=== PATIENT | male | born 1930 | race Caucasian/White ===

== ENCOUNTER 2016-09-21 02:20 | Inpatient (IN) | payer MEDICARE, BC ==
[~2016-09-21] VITALS: Ht 182.9 cm; Wt 106.5 kg
[2016-09-21] VITALS (12 sets, daily range): BP systolic 113–144; BP diastolic 74–84; PULSE 72–102; RESP 16–24; TEMP 97.5–98.5; O2SAT 91–97
[~2016-09-21 02:20] MED LIST: ARIC10TA PO; ASPI81CH3 PO; ATOR20TA PO; CITA20 PO; CLON.2 PO; CYCL-36 PO; FURO20 PO; GLUCTAB PO; LISI-587 PO; MOME17I; NAME10TA PO; NIFE30TA2 PO; POTA1080 PO; PROT40TA PO; [UNRECOGNIZED DRUG - CODE] PO
[2016-09-21] MEDS ORDERED: ARIC10TA PO (02:41)
[2016-09-21] MEDS ORDERED: [UNRECOGNIZED DRUG - CODE] (02:41)
[2016-09-21] MEDS ORDERED: METF500T4 PO (02:41)
[2016-09-21] MEDS ORDERED: FURO1TAB62 PO (02:41)
[2016-09-21] MEDS ORDERED: CYCL1TAB29 PO (02:41)
[2016-09-21] MEDS ORDERED: PROT40TA PO (02:41)
[2016-09-21] MEDS ORDERED: MOME17I EACH NARE (02:41)
[2016-09-21] MEDS ORDERED: LISI20TA3 PO (02:41)
[2016-09-21] MEDS ORDERED: ASPI1TAB69 PO (02:41)
[2016-09-21] MEDS ORDERED: CLON0.2T PO (02:41)
[2016-09-21] MEDS ORDERED: NAME10TA PO (02:41)
[2016-09-21] MEDS ORDERED: CITA20TA4 PO (02:41)
[2016-09-21] MEDS ORDERED: NIFE10 PO (02:41)
[2016-09-21] MEDS ORDERED: ATOR20TA15 PO (02:41)
[2016-09-21] MEDS ORDERED: POTA1080 PO (02:41)
--- NOTE | 2016-09-21 02:43 | PD ---
HPI Chief Complaint: Abnormal Results Time Seen by Provider: 02:33 Travel History International Travel<30 days: No Contact w/Intl Traveler<30days: No Traveled to known affect area: No History of Present Illness HPI 86-year-old male with history of hypertension, A. fib, CVA, dementia, diabetes, sent in from intermediate for evaluation of fever, nausea and vomiting, abnormal hemoglobin. Upon arrival to the emergency department the patient is awake and alert. He is not exactly sure why he is in the emergency department. He is complaining of some back pain. He denies chest pain or dyspnea. He is also having some abdominal discomfort which he is unable to characterize. PFSH Past Medical History Cerebrovascular Accident: Yes Dementia: Yes Diabetes: Yes Patient Takes Glucophage: No Psychiatric: Yes (Major depressive disorder) Past Surgical History Surgical History: Unable to Obtain Social History Alcohol Use: No Tobacco Use: No (quit 1969) Substance Use: No Allergies-Medications (Allergen,Severity, Reaction): Coded Allergies: Cephalexin (Verified Allergy, Unknown, 09/21/16) Plavix (Verified Allergy, Unknown, 09/21/16) Reported Meds & Prescriptions Reported Meds & Active Scripts Active Reported Coreg (Carvedilol) 6.25 Mg Tab 6.25 Mg PO BID Eliquis (Apixaban) 2.5 Mg Tab 2.5 Mg PO DAILY Potassium Citrate ER 1,080 Mg Tab 1,080 PO BID Protonix (Pantoprazole Sodium) 40 Mg Tab 40 Mg PO DAILY Procardia (Nifedipine) 10 Mg Cap 30 Mg PO BID Nasonex Nasal [place] (Mometasone Furoate) 50 Mcg/Act Naspr 2 [place] EACH NARE DAILY Metformin ER (Metformin HCl) 500 Mg [place] 500 Mg PO BIDPC With evening meal Namenda (Memantine) 10 Mg Tab 10 Mg PO BID Lisinopril-Hctz 20-25 Mg Tab 1 Tab PO DAILY Aricept (Donepezil) 10 Mg Tab 10 Mg PO HS Lasix (Furosemide) 20 Mg Tab 20 Mg PO DAILY Flexeril (Cyclobenzaprine HCl) 10 Mg Tab 10 Mg PO QHS Clonidine (Clonidine HCl) 0.2 Mg Tab 0.2 Mg PO DAILY Axona (Dietary Management Product) 1 Pow Pow 1 Citalopram (Citalopram Hydrobromide) 20 Mg Tab 20 Mg PO DAILY Atorvastatin (Atorvastatin Calcium) 20 Mg Tab 20 Mg PO HS Aspirin 81 Mg Tabdr 81 Mg PO DAILY Review of Systems Except as stated in HPI: all other systems reviewed are Neg Physical Exam Narrative GENERAL: Well-developed, well-nourished, awake, alert, elderly-appearing male, no acute distress. SKIN: Warm and dry. HEAD: Atraumatic. Normocephalic. EYES: Pupils equal and round. No scleral icterus. No injection or drainage. ENT: Mucous membranes pink and moist. NECK: Trachea midline. No JVD. No nuchal rigidity. CARDIOVASCULAR: Irregularly irregular. RESPIRATORY: No accessory muscle use. Clear to auscultation. Breath sounds equal bilaterally. GASTROINTESTINAL: Abdomen soft, nondistended. Mild diffuse tenderness without peritoneal signs. MUSCULOSKELETAL: No obvious deformities. No clubbing. No cyanosis. Moderate bilateral pedal edema. NEUROLOGICAL: Awake and alert. No obvious cranial nerve deficits. Motor grossly within normal limits. Normal speech. PSYCHIATRIC: Appropriate mood and affect; insight and judgment normal. Data Data Last Documented VS Vital Signs Date Time Temp Pulse Resp B/P Pulse Ox O2 Delivery O2 Flow Rate FiO2 09/21/16 03:09 91 Room Air 09/21/16 03:09 2 09/21/16 02:24 98.2 98 18 138/84 Orders Complete Blood Count With Diff (09/21/16 02:33) Comprehensive Metabolic Panel (09/21/16 02:33) Prothrombin Time / Inr (Pt) (09/21/16 02:33) Act Partial Throm Time (Ptt) (09/21/16 02:33) Lactic Acid Sepsis Protocol (09/21/16 02:33) Lipase (09/21/16 02:33) Ckmb (Isoenzyme) Profile (09/21/16 02:33) Troponin I (09/21/16 02:33) Urinalysis - C+S If Indicated (09/21/16 02:33) Influenzae A/B Antigen (09/21/16 02:33) Blood Culture (09/21/16 02:33) Chest, Single Ap (09/21/16 02:33) Blood Glucose (09/21/16 02:33) Ecg Monitoring (09/21/16 02:33) Iv Access Insert/Monitor (09/21/16 02:33) Oximetry (09/21/16 02:33) Oxygen Administration (09/21/16 02:33) Acetaminophen (Tylenol) (09/21/16 02:45) B-Type Natriuretic Peptide (09/21/16 02:37) Cath For Specimen (09/21/16 02:37) Ct Abd/Pel W Iv Contrast(Rout) (09/21/16 02:40) Levofloxacin 750 Mg Premix Inj (Levaquin (09/21/16 03:15) Aztreonam Inj (Azactam Inj) (09/21/16 03:15) Sodium Chlor 0.9% 1000 Ml Inj (Ns 1000 M (09/21/16 03:30) Iohexol 350 Inj (Omnipaque 350 Inj) (09/21/16 03:29) Urine Culture (09/21/16 02:55) Aspirin Chew (Aspirin Chew) (09/21/16 04:00) Furosemide Inj (Lasix Inj) (09/21/16 04:15) Labs Laboratory Tests Test 09/21/16 09/21/16 02:40 02:55 White Blood Count 16.4 TH/MM3 Red Blood Count 3.87 MIL/MM3 Hemoglobin 11.2 GM/DL Hematocrit 34.5 % Mean Corpuscular Volume 89.1 FL Mean Corpuscular Hemoglobin 28.9 PG Mean Corpuscular Hemoglobin 32.4 % Concent Red Cell Distribution Width 14.0 % Platelet Count 196 TH/MM3 Mean Platelet Volume 7.4 FL Neutrophils (%) (Auto) 92.0 % Lymphocytes (%) (Auto) 3.0 % Monocytes (%) (Auto) 4.9 % Eosinophils (%) (Auto) 0.0 % Basophils (%) (Auto) 0.1 % Neutrophils # (Auto) 15.1 TH/MM3 Lymphocytes # (Auto) 0.5 TH/MM3 Monocytes # (Auto) 0.8 TH/MM3 Eosinophils # (Auto) 0.0 TH/MM3 Basophils # (Auto) 0.0 TH/MM3 CBC Comment AUTO DIFF Differential Total Cells 100 Counted Neutrophils % (Manual) 81 % Band Neutrophils % 11 % Lymphocytes % 2 % Monocytes % 6 % Neutrophils # (Manual) 15.1 TH/MM3 Differential Comment FINAL DIFF MANUAL Platelet Estimate NORMAL Platelet Morphology Comment NORMAL Ovalocytes 1+ Acanthocytes OCC Keratocytes OCC Prothrombin Time 12.0 SEC Prothromb Time International 1.1 RATIO Ratio Activated Partial 31.5 SEC Thromboplast Time Sodium Level 139 MEQ/L Potassium Level 4.2 MEQ/L Chloride Level 103 MEQ/L Carbon Dioxide Level 24.6 MEQ/L Anion Gap 11 MEQ/L Blood Urea Nitrogen 23 MG/DL Creatinine 1.30 MG/DL Estimat Glomerular Filtration 52 ML/MIN Rate Random Glucose 283 MG/DL Lactic Acid Level 1.3 mmol/L Calcium Level 8.5 MG/DL Total Bilirubin 0.8 MG/DL Aspartate Amino Transf 27 U/L (AST/SGOT) Alanine Aminotransferase 14 U/L (ALT/SGPT) Alkaline Phosphatase 70 U/L Total Creatine Kinase 95 U/L Troponin I 2.36 NG/ML B-Type Natriuretic Peptide 1091 PG/ML Total Protein 6.5 GM/DL Albumin 2.9 GM/DL Lipase 85 U/L Urine Color YELLOW Urine Turbidity HAZY Urine pH 5.5 Urine Specific [place] 1.020 Urine Protein 30 mg/dL Urine Glucose (UA) 150 mg/dL Urine Ketones 40 mg/dL Urine Occult Blood MOD Urine Nitrite POS Urine Bilirubin NEG Urine Urobilinogen LESS THAN 2.0 MG/DL Urine Leukocyte Esterase LARGE Urine RBC 6 /hpf Urine WBC 88 /hpf Urine WBC Clumps MANY Urine Amorphous Sediment RARE Urine Bacteria MANY /hpf Urine Hyaline Casts 3 /lpf Urine Mucus FEW /lpf Microscopic Urinalysis Comment CATH-CULTURE IND MDM Medical Decision Making Medical Screen Exam Complete: Yes Emergency Medical Condition: Yes Medical Record Reviewed: Yes Interpretation(s) EKG: A. fib, rate 93, axis, PVCs, normal intervals, no acute ischemic abnormality. Differential Diagnosis Sepsis, pneumonia, intra-abdominal infection, UTI Narrative Course Initial vital signs show heart rate 98, blood pressure 134/84, pulse ox 92% on room air, oral temp of 98.2F. CBC shows WBC 16.4, hemoglobin 11.2, hematocrit 34.5, platelets 196, neutrophils 92%. 11% band neutrophils CMP is markable for BUN 23, creatinine 1.2, GFR 52, random glucose 283 Lactic acid is 1.3. BNP Troponin is 2.36. UA is suggestive of UTI. Chest x-ray: Left lower lobe consolidation and patchy infiltrates in the right mid and lower lung. CT abdomen pelvis: CONCLUSION: 1. Abnormal appearance to the gallbladder with multiple small calcified stones, marked distention of the gallbladder, and induration of the fat about the gallbladder tracking along the mesentery in the right upper quadrant. Recommend correlation with clinical exam for possible acute cholecystitis.. 2. Large bilateral pleural effusions, right greater than left. The patient was given Levaquin and Azactam for his chest x-ray findings of bilateral infiltrates. Elevated troponin is likely secondary to CHF as well as sepsis. The patient is denying chest pain. Case discussed with tower observer Dr. Briones who will admit the patient to his service. Critical Care Narrative Aggregate critical care time was 35 minutes. Time to perform other separately billable procedures was not included in the critical care time. My time did not include minutes spent treating any other patients simultaneously or on activities that did not directly contribute to the patient's treatment. The services I provided to this patient were to treat and/or prevent clinically significant deterioration that could result in: , permanent disability, septic shock I provided critical care services requiring my management, as noted below: Chart data review, documentation time, medication orders and management, vital sign assessments/reviewing monitor data, ordering and reviewing lab tests, ordering and interpreting/reviewing x-rays and diagnostic studies, care of the patient and discussion of the patient with the admitting physicians. Diagnosis Primary Impression: Sepsis Qualified Code: A41.9 - Sepsis, due to unspecified organism Additional Impressions: Pneumonia Qualified Code: J18.9 - Pneumonia of both lungs due to infectious organism, unspecified part of lung UTI (urinary tract infection) Qualified Code: N39.0 - Urinary tract infection with hematuria, site unspecified Cholecystitis Elevated troponin Bilateral pleural effusion Yordan Villanueva MD Sep 21, 2016 02:43
[2016-09-21] MEDS ORDERED: ACETAMINOPHEN 325 MG TAB PO ONE (02:45)
[2016-09-21 02:53] LABS: AUTOMATED NEUTROPHIL # 15.1 TH/MM3 (1.8-7.7); BASOPHIL % 0.1 % (0.0-2.0); HEMATOCRIT 34.5 % (39.0-51.0); LYMPHOCYTE # 0.5 TH/MM3 (1.0-4.8); MEAN CELL VOLUME 89.1 FL (80.0-100.0); MEAN CORPUSCULAR HEMOGLOBIN 28.9 PG (27.0-34.0); MEAN CORPUSCULAR HGB CONC 32.4 % (32.0-36.0); MONO % 4.9 % (0.0-8.0); PLATELET COUNT 196 TH/MM3 (150-450); RED BLOOD COUNT 3.87 MIL/MM3 (4.50-5.90); WHITE BLOOD COUNT 16.4 TH/MM3 (4.0-11.0)
[2016-09-21 02:54] LABS: HEMO FLAGS AUTO DIFF
[2016-09-21 03:04] LABS: APTT (PATIENT) 31.5 SEC (24.3-30.1); INTERNATIONAL NORMALIZED RATIO 1.1 RATIO
--- NOTE | 2016-09-21 03:10 | RADRPT ---
EXAM DATE/TIME: 09/21/2016 02:43 [facility] COMPARISON: No previous studies available for comparison. INDICATIONS : Fever and generalized weakness. MEDICAL HISTORY : None. SURGICAL HISTORY : None. ENCOUNTER: Initial ACUITY: 3 days PAIN SCORE: 0/10 LOCATION: chest FINDINGS: The heart is enlarged. There is consolidative infiltrate in the left lower lung causing loss of deli neation of the medial one half left hemidiaphragm. Patchy infiltrates in the right mid and lower dayana g are also present. The right hemidiaphragm remains well delineated. CONCLUSION: Left lower lobe consolidation and patchy infiltrates in the right mid and lower lung. Cardiomegaly. Morgan Venegas MD on September 21, 2016 at 3:08 Board Certified Radiologist. This report was verified electronically.
[2016-09-21] MEDS ORDERED: LEVOFLOXACIN 750 MG PREMIX INJ 150 ML IV ONE (03:15)
[2016-09-21] MEDS ORDERED: AZTREONAM INJ 2,000 MG in SODIUM CHLORIDE 0.9% INJ 100 ML IV ONE (03:15)
[2016-09-21 03:16] LABS: ALT (GPT) 14 U/L (12-78); ANION GAP 11 MEQ/L (5-15); AST (GOT) 27 U/L (15-37); BICARBONATE 24.6 MEQ/L (21.0-32.0); BLOOD UREA NITROGEN 23 MG/DL (7-18); CHLORIDE 103 MEQ/L (98-107); GLOMERULAR FILTRATION RATE 52 ML/MIN (>89); POTASSIUM 4.2 MEQ/L (3.5-5.1); SODIUM (NA) 139 MEQ/L (136-145)
[2016-09-21] MEDS ORDERED: CARV6.25 PO (03:16)
[2016-09-21] MEDS ORDERED: APIX2.5T PO (03:16)
[2016-09-21 03:20] LABS: ALKALINE PHOSPHATASE 70 U/L (45-117); TOTAL BILIRUBIN ADULT 0.8 MG/DL (0.2-1.0)
[2016-09-21] MEDS ORDERED: IOHEXOL 350 MG/ML 10 ML VIAL (for RAD DIAG) IV ONE (03:29)
[2016-09-21] MEDS ORDERED: SODIUM CHLOR 0.9% 1000 ML INJ 1,000 ML IV ONE (03:30)
[2016-09-21 03:32] LABS: BACTERIA, URINE MANY /hpf; BLOOD, URINE MOD (NEG); COMMENT (UR) CATH-CULTURE IND; CULTURE IF INDICATED CATH CULTURE IND; GLUCOSE,URINE 150 mg/dL (NEG); HYALINE CAST, URINE 3 /lpf (RARE); KETONE, URINE 40 mg/dL (NEG); MUCUS URINE FEW /lpf (OCC); NITRITE,URINE POS (NEG); PH, URINE 5.5 (5.0-8.5); URINE COLOR YELLOW (YELLW/STRAW)
[2016-09-21 03:42] LABS: CREATINE KINASE 95 U/L (39-308)
[2016-09-21 03:53] LABS: BANDS 11 % (0-6); NEUTROPHIL # MANUAL DIFF 15.1 TH/MM3 (1.8-7.7); POLYS (SEG NEUTROPHILS) 81 % (16-70); SCAN/DIFF FINAL DIFF MANUAL; WBC DIFF SAMPLE 100
[2016-09-21 03:54] LABS: ACANTHOCYTES OCC (NORMAL); KERATOCYTES OCC (NORMAL); OVALOCYTES 1+ (NORMAL)
--- NOTE | 2016-09-21 03:54 | RADRPT ---
EXAM DATE/TIME: 09/21/2016 03:27 [facility] COMPARISON: CHEST SINGLE AP, September 21, 2016, 2:43. INDICATIONS : Weakness and abdominal pain. Nausea and vomiting. IV CONTRAST: 85 cc Omnipaque 350 (iohexol) IV ORAL CONTRAST: No oral contrast ingested. RADIATION DOSE: 16.94 CTDIvol (mGy) MEDICAL HISTORY : Hypertension. Carcinoma, prostate. Diabetes mellitus type 2. SURGICAL HISTORY : Prostatectomy. ENCOUNTER: Initial ACUITY: 1 day PAIN SCALE: 5/10 LOCATION: abdomen TECHNIQUE: Volumetric scanning of the abdomen and pelvis was performed. Using automated exposure control and ad justment of the mA and/or kV according to patient size, radiation dose was kept as low as reasonably achievable to obtain optimal diagnostic quality images. FINDINGS: LOWER LUNGS: Bilateral pleural effusions, measuring 6.2 cm on the right and 3.8 cm on the left in AP dimension. T here is associated compressive atelectasis in adjacent lower lungs.. LIVER: There is a smooth margined cyst in the dome of the liver measuring 2.5 cm. The central biliary ducts are slightly prominent, but no ductal dilatation in the periphery of the liver. The gallbladder is distended and there are multiple small calcified gallstones layering in the dependent portion near th e neck. There is some induration of the fat about the gallbladder, and the induration does extend al laurie the fascia of the right anterior pararenal space.SPLEEN: Normal size without lesion. PANCREAS: Within normal limits. KIDNEYS: Normal in size and shape. There is no mass, stone or hydronephrosis. ADRENAL GLANDS: Within normal limits. VASCULAR: Diffuse prominent vascular calcification in the abdominal arteries. The abdominal aorta is normal in dimension. BOWEL/MESENTERY: No dilated loops of small bowel. Moderate amount of stool seen in the right colon and in the rectum. ABDOMINAL WALL: Within normal limits. RETROPERITONEUM: There is no lymphadenopathy. BLADDER: No wall thickening or mass. REPRODUCTIVE: Hemoclips in the pelvis from presumed prostatectomy. INGUINAL: There is no lymphadenopathy or hernia. MUSCULOSKELETAL: Within normal limits for patient age. CONCLUSION: 1. Abnormal appearance to the gallbladder with multiple small calcified stones, marked distention of the gallbladder, and induration of the fat about the gallbladder tracking along the mesentery in the right upper quadrant. Recommend correlation with clinical exam for possible acute cholecystitis.. 2. Large bilateral pleural effusions, right greater than left. Morgan Venegas MD on September 21, 2016 at 3:44 Board Certified Radiologist. This report was verified electronically.
[2016-09-21 03:55] LABS: PLATELET ESTIMATE SMEAR NORMAL (NORMAL); PLATELET MORPHOLOGY NORMAL (NORMAL)
[2016-09-21] MEDS ORDERED: ASPIRIN 81 MG CHEW TAB CHEW ONE (04:00)
[2016-09-21] MEDS ORDERED: FUROSEMIDE 40 MG/4 ML VIAL IV PUSH ONE ×2 (04:15→06:00)
[2016-09-21] MEDS ORDERED: metroNIDAZOLE 500 MG INJ 100 ML IV ONE (04:30)
[2016-09-21] MEDS ORDERED: CIPROFLOXACIN 400 MG PREMIX 200 ML IV ONE (05:00)
--- NOTE | 2016-09-21 05:42 | HHI.HP ---
[facility] Service Critical Care Medicine Primary Care Physician Non-Staff Admission Diagnosis sepsis, pneumonia, UTI, cholecystitis, elevated troponin Diagnosis: Chief Complaint: 86 y/o alf resident presents with leukocytosis, right upper quadrant tenderness, CT finding consistent with cholecyctitis. Clearly chronic heart failure with large bilateral pleural effusions and BNP > 1000. Troponin levated at 2.96. Travel History International Travel<30 Days: No Contact w/Intl Traveler <30 Da: No Traveled to Known Affected Are: No History of Present Illness 86 y/o alf resident presents with leukocytosis, right upper quadrant tenderness, CT finding consistent with cholecystitis. Clearly chronic heart failure with large bilateral pleural effusions and BNP > 1000. Troponin elevated at 2.96. Review of Systems ROS Abdominal pain. Confused. No family. Past Family Social History Allergies: Coded Allergies: Cephalexin (Verified Allergy, Unknown, 09/21/16) Plavix (Verified Allergy, Unknown, 09/21/16) Past Medical History Past Medical History Cerebrovascular Accident: Yes Dementia: Yes Diabetes: Yes Patient Takes Glucophage: No Psychiatric: Yes (Major depressive disorder) Past Surgical History Surgical History: Unable to Obtain Social History Alcohol Use: No Tobacco Use: No (quit 1968) Substance Use: No Allergies-Medications Allergies-Medications (Allergen,Severity, Reaction): Coded Allergies: Cephalexin (Verified Allergy, Unknown, 09/21/16) Plavix (Verified Allergy, Unknown, 09/21/16) Reported Meds & Prescriptions Reported Meds & Active Scripts Active Reported Coreg (Carvedilol) 6.25 Mg Tab 6.25 Mg PO BID Eliquis (Apixaban) 2.5 Mg Tab 2.5 Mg PO DAILY Potassium Citrate ER 1,080 Mg Tab 1,080 PO BID Protonix (Pantoprazole Sodium) 40 Mg Tab 40 Mg PO DAILY Procardia (Nifedipine) 10 Mg Cap 30 Mg PO BID Nasonex Nasal [place] (Mometasone Furoate) 50 Mcg/Act Naspr 2 [place] EACH NARE DAILY Metformin ER (Metformin HCl) 500 Mg [place] 500 Mg PO BIDPC With evening meal Namenda (Memantine) 10 Mg Tab 10 Mg PO BID Lisinopril-Hctz 20-25 Mg Tab 1 Tab PO DAILY Aricept (Donepezil) 10 Mg Tab 10 Mg PO HS Lasix (Furosemide) 20 Mg Tab 20 Mg PO DAILY Flexeril (Cyclobenzaprine HCl) 10 Mg Tab 10 Mg PO QHS Clonidine (Clonidine HCl) 0.2 Mg Tab 0.2 Mg PO DAILY Axona (Dietary Management Product) 1 Pow Pow 1 Citalopram (Citalopram Hydrobromide) 20 Mg Tab 20 Mg PO DAILY Atorvastatin (Atorvastatin Calcium) 20 Mg Tab 20 Mg PO HS Aspirin 81 Mg Tabdr 81 Mg PO DAILY Physical Exam Vital Signs Vital Signs Date Time Temp Pulse Resp B/P Pulse Ox O2 Delivery O2 Flow Rate FiO2 09/21/16 05:19 18 09/21/16 04:25 102 18 144/82 95 09/21/16 03:09 91 Room Air 09/21/16 03:09 91 Room Air 09/21/16 03:09 95 Nasal Cannula 2 09/21/16 02:27 92 Room Air 09/21/16 02:24 98.2 98 18 138/84 92 Physical Exam P 102, BP 132/67, R 14 nonlabored, T 98 Gen: Pleasant elderly man, confused but able to answer simple question. Head: Normal. Neck: Supple, airway widely patent. Lungs: Clear, decreased BS bases. Abdomen: Soft, reproducible tenderness RUQ. No involuntary guarding. Extremities:Warm, well perfused. Neuro: Conversant, calm. Confused. Laboratory Laboratory Tests Test 09/21/16 09/21/16 02:40 02:55 White Blood Count 16.4 Red Blood Count 3.87 Hemoglobin 11.2 Hematocrit 34.5 Mean Corpuscular Volume 89.1 Mean Corpuscular Hemoglobin 28.9 Mean Corpuscular Hemoglobin 32.4 Concent Red Cell Distribution Width 14.0 Platelet Count 196 Mean Platelet Volume 7.4 Neutrophils (%) (Auto) 92.0 Lymphocytes (%) (Auto) 3.0 Monocytes (%) (Auto) 4.9 Eosinophils (%) (Auto) 0.0 Basophils (%) (Auto) 0.1 Neutrophils # (Auto) 15.1 Lymphocytes # (Auto) 0.5 Monocytes # (Auto) 0.8 Eosinophils # (Auto) 0.0 Basophils # (Auto) 0.0 CBC Comment AUTO DIFF Differential Total Cells 100 Counted Neutrophils % (Manual) 81 Band Neutrophils % 11 Lymphocytes % 2 Monocytes % 6 Neutrophils # (Manual) 15.1 Differential Comment FINAL DIFF MANUAL Platelet Estimate NORMAL Platelet Morphology Comment NORMAL Ovalocytes 1+ Acanthocytes OCC Keratocytes OCC Prothrombin Time 12.0 Prothromb Time International 1.1 Ratio Activated Partial 31.5 Thromboplast Time Sodium Level 139 Potassium Level 4.2 Chloride Level 103 Carbon Dioxide Level 24.6 Anion Gap 11 Blood Urea Nitrogen 23 Creatinine 1.30 Estimat Glomerular Filtration 52 Rate Random Glucose 283 Lactic Acid Level 1.3 Calcium Level 8.5 Total Bilirubin 0.8 Aspartate Amino Transf 27 (AST/SGOT) Alanine Aminotransferase 14 (ALT/SGPT) Alkaline Phosphatase 70 Total Creatine Kinase 95 Troponin I 2.36 B-Type Natriuretic Peptide 1091 Total Protein 6.5 Albumin 2.9 Lipase 85 Urine Color YELLOW Urine Turbidity HAZY Urine pH 5.5 Urine Specific [place] 1.020 Urine Protein 30 Urine Glucose (UA) 150 Urine Ketones 40 Urine Occult Blood MOD Urine Nitrite POS Urine Bilirubin NEG Urine Urobilinogen LESS THAN 2.0 Urine Leukocyte Esterase LARGE Urine RBC 6 Urine WBC 88 Urine WBC Clumps MANY Urine Amorphous Sediment RARE Urine Bacteria MANY Urine Hyaline Casts 3 Urine Mucus FEW Microscopic Urinalysis Comment CATH-CULTURE IND Date/Time Procedure Status Source Growth 09/21/16 02:55 Urine Culture Worksheet Urine Catheterized Urine Pending 09/21/16 02:55 Influenza Types A,B Antigen (ANUJA) - Final Complete Nasal Washing NEGATIVE FOR FLU A AND B ANTIGEN.... 09/21/16 02:40 Aerobic Blood Culture Received Blood Peripheral Pending 09/21/16 02:40 Anaerobic Blood Culture Received Blood Peripheral Pending Result Diagram: 09/21/1623909/21/16239 Assessment and Plan Problem List: (1) Sepsis ICD Code: A41.9 Status: Acute (2) Cholecystitis ICD Code: K81.9 Status: Acute (3) UTI (urinary tract infection) ICD Code: N39.0 Status: Acute (4) Elevated troponin ICD Code: R74.8 Status: Acute (5) Bilateral pleural effusion ICD Code: J90 Status: Acute Assessment and Plan Plan: 1. Broad antibiotic coverage for gall bladder, urine. 2. Diuretic X 1. 3. Blood, urine cultures. 4. Pepcid. 5. Hold Eliquis and other PO meds pending surgical evaluation (not called yet). 6. Serial abdominal exams. 7. Serial BNP. 8. Cardiac ECHO. Overall impression: This man is critically ill with sepsis and abdominal pain. His co-morbidities are numerous. We will try to get him to settle down with antibiotics while we better assess his cardiac function. Source is gall bladder or urine, or both. Critical Care 40 mins Problem Qualifiers (1) Sepsis: Qualified Code: A41.9 - Sepsis, due to unspecified organism (2) UTI (urinary tract infection): Qualified Code: N39.0 - Urinary tract infection with hematuria, site unspecified Pola Briones MD Sep 21, 2016 05:41
[2016-09-21] MEDS ORDERED: POTASSIUM PHOSPHATE MONOBASIC 500 MG TAB PO/TUBE PRN (06:09)
[2016-09-21] MEDS ORDERED: POTASSIUM PHOSPHATE INJ 30 MMOL in SODIUM CHLOR 0.9% 250 ML INJ 250 ML IV PRN (06:09)
[2016-09-21] MEDS ORDERED: POTASSIUM CHLOR 20 MEQ PREMIX 100 ML IV PRN ×2 (06:09→06:15)
[2016-09-21] MEDS ORDERED: MAGNESIUM SULFATE INJ 4 GM in SODIUM CHLORIDE 0.9% INJ 92 ML IV PRN (06:09)
[2016-09-21] MEDS ORDERED: POTASSIUM CHLOR 40 MEQ PREMIX 100 ML IV PRN ×2 (06:09→06:15)
[2016-09-21] MEDS ORDERED: MAGNESIUM OXIDE 400 MG TAB PO PRN (06:09)
[2016-09-21] MEDS ORDERED: POTASSIUM PHOSPHATE MONOBASIC 500 MG TAB PO PRN (06:09)
[2016-09-21] MEDS ORDERED: SODIUM PHOSPHATE INJ 30 MMOL in SODIUM CHLOR 0.9% 250 ML INJ 240 ML IV PRN (06:09)
[2016-09-21] MEDS ORDERED: MAGNESIUM SULFATE INJ 2 GM in SODIUM CHLORIDE 0.9% INJ 96 ML IV PRN (06:09)
[2016-09-21] MEDS ORDERED: MISCELLANEOUS NURSING INFORMATION XX SCH (06:15)
[2016-09-21] MEDS ORDERED: DEXTROSE 50% IN WATER 50 ML VIAL(D50) IV PUSH PRN (06:15)
[2016-09-21] MEDS ORDERED: GLUCAGON 1 MG/ML VIAL OTHER PRN (06:15)
[2016-09-21] MEDS ORDERED: CHLORHEXIDINE GLUCONATE 2 % 1 PACK (2 CLOTHS) TOP PRN (06:15)
[2016-09-21] MEDS: INSULIN ASPART SUPPLEMENTAL SCALE SQ SCH ×3 (06:15→18:01)
[2016-09-21] MEDS ORDERED: ACETAMINOPHEN 325 MG TAB PO PRN (06:15)
[2016-09-21] MEDS: HEPARIN SODIUM - SQ 10,000 UNITS/ML VIAL SQ SCH ×2 (06:24→18:02)
[2016-09-21] MEDS ORDERED: POTASSIUM CHLORIDE 20 MEQ PWD PACKET PO PRN (06:45)
[2016-09-21] MEDS: PANTOPRAZOLE SODIUM 40 MG VIAL IV SCH (09:00)
[2016-09-21] MEDS: FUROSEMIDE 20 MG TAB PO SCH (09:00)
[2016-09-21] MEDS: PANTOPRAZOLE SOD 40 MG DELAYED RELEASE TAB PO SCH (09:25)
[2016-09-21] MEDS: CITALOPRAM HYDROBROMIDE 20 MG TAB PO SCH (09:25)
[2016-09-21] MEDS: SODIUM CHLORIDE 0.9% FLUSH 5 ML FLUSH IV FLUSH SCH ×2 (09:26→20:25)
[2016-09-21] MEDS: CARVEDILOL 6.25 MG TAB PO SCH ×2 (09:26→20:22)
[2016-09-21] MEDS: FLUTICASONE PROPIONATE 50 MCG/ACT 16 GM NASAL SPRAY EACH NARE SCH (11:00)
[2016-09-21] MEDS: MEMANTINE HCL 10 MG TAB PO SCH ×2 (11:00→20:23)
[2016-09-21] MEDS: AZTREONAM INJ 1,000 MG in SODIUM CHLORIDE 0.9% INJ 100 ML IV SCH ×2 (12:34→20:22)
--- NOTE | 2016-09-21 12:58 | PD.CONS ---
cc: Raj Early MD [facility] Service General Surgery Consult Requested By Dr. Shoemaker Reason for Consult Acute cholecystitis Primary Care Physician Non-Staff History of Present Illness This is an 86 year old senior living patient with a past medical history of CVA and dementia who developed severe RUQ pain yesterday evening. He reports he had nausea with vomiting after the last two dinners he had at [facility]. He cannot recall what he had to eat. He was brought to the ED for evaluation of abdominal pain. He was found to have an elevated WBC and CT scan consistent with acute cholecystitis. Of note, he also has an elevated troponin. A General Surgery consultation was requested for evaluation of his abdominal pain and possible acute cholecystitis. Review of Systems Constitutional: COMPLAINS OF: Fatigue, DENIES: Weight gain, Weight loss Endocrine: DENIES: Polydipsia, Polyuria, Polyphagia Eyes: DENIES: Diplopia, Eye inflammation Ears, nose, mouth, throat: DENIES: Hearing loss Respiratory: DENIES: Apneas, Cough, Snoring Cardiovascular: DENIES: Palpitations Gastrointestinal: COMPLAINS OF: Abdominal pain (RUQ pain ), Nausea, Vomiting Genitourinary: DENIES: Urgency, Hematuria, Dysuria Musculoskeletal: DENIES: Joint pain Integumentary: DENIES: Abnormal pigmentation Hematologic/lymphatic: DENIES: Bruising Immunologic/allergic: DENIES: Eczema Psychiatric: DENIES: Confusion, Mood changes Past Family Social History Past Medical History CVA DM Past Surgical History appendectomy (17 years old) Reported Medications See chart but please note he takes Eliquis Allergies: Coded Allergies: Cephalexin (Verified Allergy, Unknown, 09/21/16) Plavix (Verified Allergy, Unknown, 09/21/16) Active Ordered Medications Current Medications Medications (Trade) Dose Ordered Sig/Ale Route Start Time Stop Time Status Last Admin (NS Flush) 2 ml UNSCH PRN IV FLUSH 09/21/16 06:15 (NS Flush) 2 ml BID IV FLUSH 09/21/16 09:00 09/21/16 09:26 (Tylenol) 650 mg Q6H PRN PO 09/21/16 06:15 (Protonix Inj) 40 mg DAILY IV 09/21/16 09:00 (Heparin Inj) 5,000 units Q12H SQ 09/21/16 06:00 09/21/16 06:24 Miscellaneous Information 1 Q361D XX 09/21/16 06:15 09/21/16 06:15 (Chlorhexidine 2% Cloth) 3 pack Taper DAILY@04 TOP 09/22/16 04:00 09/18/17 03:59 (Chlorhexidine 2% Cloth) 3 pack UNSCH PRN TOP 09/21/16 06:15 (D50w (Vial) Inj) 25 ml UNSCH PRN IV PUSH 09/21/16 06:15 (Glucagon Inj) 1 mg UNSCH PRN OTHER 09/21/16 06:15 Insulin Aspart 1 1 Q6HR SQ 09/21/16 06:15 09/21/16 11:24 Potassium Chloride 100 ml @ 50 mls/hr Q2H PRN IV 09/21/16 06:15 Potassium Chloride 100 ml @ 50 mls/hr Q2H PRN IV 09/21/16 06:15 Potassium Chloride 100 ml @ 25 mls/hr UNSCH PRN IV 09/21/16 06:09 Potassium Chloride 100 ml @ 50 mls/hr Q2H PRN IV 09/21/16 06:09 (Magnesium Sulfate Inj/NS Inj) 100 ml @ 50 mls/hr UNSCH PRN IV 09/21/16 06:09 Magnesium Oxide 800 mg 800 mg UNSCH PRN PO 09/21/16 06:09 (Magnesium Sulfate Inj/NS Inj) 100 ml @ 50 mls/hr UNSCH PRN IV 09/21/16 06:09 Potassium Phosphate 2000 mg 2,000 mg Q4H PRN PO 09/21/16 06:09 (Sodium Phosphate Inj/NS 250 ml Inj) 250 ml @ 42 mls/hr UNSCH PRN IV 09/21/16 06:09 (KCl Powder) 40 meq UNSCH PRN PO 09/21/16 06:45 Potassium Phosphate 2000 mg 2,000 mg UNSCH PRN PO/TUBE 09/21/16 06:09 Potassium Phosphate 30 mmol/ Sodium Chloride 260 ml @ 42 mls/hr UNSCH PRN IV 09/21/16 06:09 Aztreonam 1000 mg/ Sodium Chloride 100 ml @ 200 mls/hr Q8H IV 09/21/16 13:00 09/21/16 12:34 Ciprofloxacin/ Dextrose 200 ml @ 200 mls/hr Q12H IV 09/21/16 18:00 (Flagyl 500 Mg Inj) 100 ml @ 100 mls/hr Q8H IV 09/21/16 14:00 (Lipitor) 20 mg HS PO 09/21/16 21:00 (Coreg) 6.25 mg BID PO 09/21/16 09:00 09/21/16 09:26 (CeleXA) 20 mg DAILY PO 09/21/16 09:00 09/21/16 09:25 (Aricept) 10 mg HS PO 09/21/16 21:00 (Lasix) 20 mg DAILY PO 09/21/16 09:00 (Namenda) 10 mg BID PO 09/21/16 09:00 09/21/16 11:00 (Flonase Abdoul Spr) 2 spray DAILY EACH NARE 09/21/16 09:00 09/21/16 11:00 (Protonix) 40 mg DAILY PO 09/21/16 09:00 09/21/16 09:25 Family History Non contributory Social History Denies smoking Denies ETOH use Denies illicit drug use Physical Exam Vital Signs Vital Signs Date Time Temp Pulse Resp B/P Pulse Ox O2 Delivery O2 Flow Rate FiO2 09/21/16 12:00 85 09/21/16 10:00 81 09/21/16 08:00 82 09/21/16 07:10 85 16 115/81 97 Nasal Cannula 2 09/21/16 05:19 18 09/21/16 04:25 102 18 144/82 95 09/21/16 03:09 95 Nasal Cannula 2.00 09/21/16 03:09 91 Room Air 09/21/16 03:09 91 Room Air 09/21/16 03:09 95 Nasal Cannula 2 09/21/16 02:27 92 Room Air 09/21/16 02:24 98.2 98 18 138/84 92 Physical Exam GENERAL: Elderly male lying in bed in no acute distress SKIN: Warm and dry. HEAD: Atraumatic. Normocephalic. EYES: Pupils equal and round. No scleral icterus. No injection or drainage. ENT: No nasal bleeding or discharge. Mucous membranes pink and moist. NECK: Trachea midline. CARDIOVASCULAR: Regular rate and rhythm. RESPIRATORY: No accessory muscle use. Clear to auscultation. Breath sounds equal bilaterally. GASTROINTESTINAL: Abdomen soft, nondistended; RUQ and epigastric pain with palpation. MUSCULOSKELETAL: Extremities without clubbing, cyanosis, or edema. No obvious deformities. NEUROLOGICAL: Awake and alert. No obvious cranial nerve deficits. Motor grossly within normal limits. Normal speech. Laboratory Laboratory Tests Test 09/21/16 09/21/16 09/21/16 09/21/16 02:40 02:55 09:22 11:45 White Blood Count 16.4 Red Blood Count 3.87 Hemoglobin 11.2 Hematocrit 34.5 Mean Corpuscular Volume 89.1 Mean Corpuscular Hemoglobin 28.9 Mean Corpuscular Hemoglobin 32.4 Concent Red Cell Distribution Width 14.0 Platelet Count 196 Mean Platelet Volume 7.4 Neutrophils (%) (Auto) 92.0 Lymphocytes (%) (Auto) 3.0 Monocytes (%) (Auto) 4.9 Eosinophils (%) (Auto) 0.0 Basophils (%) (Auto) 0.1 Neutrophils # (Auto) 15.1 Lymphocytes # (Auto) 0.5 Monocytes # (Auto) 0.8 Eosinophils # (Auto) 0.0 Basophils # (Auto) 0.0 CBC Comment AUTO DIFF Differential Total Cells 100 Counted Neutrophils % (Manual) 81 Band Neutrophils % 11 Lymphocytes % 2 Monocytes % 6 Neutrophils # (Manual) 15.1 Differential Comment FINAL DIFF MANUAL Platelet Estimate NORMAL Platelet Morphology Comment NORMAL Ovalocytes 1+ Acanthocytes OCC Keratocytes OCC Prothrombin Time 12.0 Prothromb Time International 1.1 Ratio Activated Partial 31.5 Thromboplast Time Sodium Level 139 Potassium Level 4.2 Chloride Level 103 Carbon Dioxide Level 24.6 Anion Gap 11 Blood Urea Nitrogen 23 Creatinine 1.30 Estimat Glomerular Filtration 52 Rate Random Glucose 283 Lactic Acid Level 1.3 Calcium Level 8.5 Total Bilirubin 0.8 Aspartate Amino Transf 27 (AST/SGOT) Alanine Aminotransferase 14 (ALT/SGPT) Alkaline Phosphatase 70 Total Creatine Kinase 95 Troponin I 2.36 19.70 B-Type Natriuretic Peptide 1091 Total Protein 6.5 Albumin 2.9 Lipase 85 Urine Color YELLOW Urine Turbidity HAZY Urine pH 5.5 Urine Specific Moran 1.020 Urine Protein 30 Urine Glucose (UA) 150 Urine Ketones 40 Urine Occult Blood MOD Urine Nitrite POS Urine Bilirubin NEG Urine Urobilinogen LESS THAN 2.0 Urine Leukocyte Esterase LARGE Urine RBC 6 Urine WBC 88 Urine WBC Clumps MANY Urine Amorphous Sediment RARE Urine Bacteria MANY Urine Hyaline Casts 3 Urine Mucus FEW Microscopic Urinalysis Comment CATH-CULTURE IND Nasal Screen MRSA (PCR) NEGATIVE Date/Time Procedure Status Source Growth 09/21/16 02:55 Urine Culture Worksheet Urine Catheterized Urine Pending 09/21/16 02:55 Influenza Types A,B Antigen (ANUJA) - Final Complete Nasal Washing NEGATIVE FOR FLU A AND B ANTIGEN.... 09/21/16 02:40 Aerobic Blood Culture Received Blood Peripheral Pending 09/21/16 02:40 Anaerobic Blood Culture Received Blood Peripheral Pending Result Diagram: 09/21/1623909/21/16239 Imaging Last 48 hours Impressions Abdomen/Pelvis CT 09/21/16239 Signed Impressions: Service Date/Time: Wednesday, September 21, 2016 03:27 - CONCLUSION: 1. Abnormal appearance to the gallbladder with multiple small calcified stones, marked distention of the gallbladder, and induration of the fat about the gallbladder tracking along the mesentery in the right upper quadrant. Recommend correlation with clinical exam for possible acute cholecystitis.. 2. Large bilateral pleural effusions, right greater than left. Morgan Venegas MD Chest X-Ray 09/21/163 Signed Impressions: Service Date/Time: Wednesday, September 21, 2016 02:43 - CONCLUSION: Left lower lobe consolidation and patchy infiltrates in the right mid and lower lung. Cardiomegaly. Morgan Venegas MD Assessment and Plan Assessment and Plan 86 year old male with acute cholecystitis as well as CHF and elevated troponin -Recommend cholecystostomy tube placed by IR -Hold [employer] for procedure -NPO -Continue IV antibiotics -Continue to monitor WBC count -Medical management -Discussed at bedside with about plan of care -Thank you for allowing us to participate in Mr. Ibrahim's care -General Surgery will follow along with you Discussed Condition With and Mrs. Ibrahim Dr. Early Attending Statement The exam, history, and the medical decision-making described in the above note were completed with the assistance of the mid-level provider. I reviewed and agree with the findings presented. I attest that I had a [id number] encounter with the patient on the same day, and personally performed and documented my assessment and findings in the medical record. patient with multiple medical comorbidities, likely acute cholecystitis, recommend temporize/treat with cholecystostomy tube, will follow Alivia Johnson Sep 21, 2016 12:57 Raj Early MD Sep 22, 2016 01:57
[2016-09-21] MEDS ORDERED: HEPARIN-D5W INJ 250 ML IV SCH (13:15)
[2016-09-21] MEDS: metroNIDAZOLE 500 MG INJ 100 ML IV SCH ×2 (14:00→21:10)
[2016-09-21 14:25] LABS: HEMATOCRIT 30.9 % (39.0-51.0); MEAN CELL VOLUME 88.6 FL (80.0-100.0); MEAN CORPUSCULAR HGB CONC 32.8 % (32.0-36.0); PLATELET COUNT 188 TH/MM3 (150-450); RED BLOOD COUNT 3.49 MIL/MM3 (4.50-5.90); RED CELL DISTRIBUTION WIDTH 14.2 % (11.6-17.2); REVIEW FLAG FINAL; WHITE BLOOD COUNT 20.9 TH/MM3 (4.0-11.0)
[2016-09-21 14:32] LABS: APTT (PATIENT) 37.1 SEC (24.3-30.1); INTERNATIONAL NORMALIZED RATIO 1.4 RATIO; PROTHROMBIN TIME - PATIENT 15.7 SEC (9.8-11.6)
[2016-09-21] MEDS ORDERED: fentaNYL CITRATE 250 MCG/5 ML AMP ONE (15:08)
[2016-09-21] MEDS ORDERED: MIDAZOLAM HCL 5 MG/5 ML VIAL ONE (15:08)
[2016-09-21] MEDS ORDERED: IOHEXOL 350 MG/ML 50 ML BTL (for RAD DIAG) ONE (16:50)
--- NOTE | 2016-09-21 16:57 | PD.RAD ---
Post Procedure Progress Note Pre Procedure Diagnosis: (1) Cholecystitis Post Procedure Diagnosis: (1) Cholecystitis Procedure Date: Sep 21, 2016 Supervising Radiologist: Emery Truong Proceduralist/Assist: Jose Tovar RT(R), Lakisha De Leon RT(R)() Anesthesia: Conscious Sedation Plan of Activity Patient to Unit: Critical Care Patient Condition: Fair See PACS Report for procedural detail/treatment Drainage Procedure Procedure 1 Imaging Guidance: Fluoroscopy Procedure Type: Cholecystostomy Procedure: Placement Fluid Description: Maritn Ortiz David B. MD Sep 21, 2016 16:57
--- NOTE | 2016-09-21 17:03 | RADRPT ---
EXAM DATE/TIME: 09/21/2016 16:48 [facility] COMPARISON: CHEST SINGLE AP, September 21, 2016, 2:43. INDICATIONS : Shortness of breath. MEDICAL HISTORY : None. SURGICAL HISTORY : None. ENCOUNTER: Initial ACUITY: 1 day PAIN SCORE: 0/10 LOCATION: chest FINDINGS: Bibasilar consolidation again noted, slightly worse. Small pleural effusion possible especially on th e left. No pneumothorax. Mild cardiomegaly is stable. CONCLUSION: Modest worsening bibasilar consolidation. Duncan Chapman MD on September 21, 2016 at 17:01 Board Certified Radiologist. This report was verified electronically.
--- NOTE | 2016-09-21 17:58 | RADRPT ---
EXAM DATE/TIME: 09/21/2016 15:18 [facility] COMPARISON : INDICATIONS : Patient with bilateral pleural effusion in need of thoracentesis. OBJECTIVE: Temperature: Heart Rate: Blood Pressure: / Respiratory: Oximetry: PNEUMONIA VACCINE: HISTORY OF PRESENT ILLNESS: ? PAST MEDICAL HISTORY : 1. Carcinoma, prostate. 2. Hypertension. 3. Hypercholesterolemia. 4. Diabetes 5. A-Fib 6. CHF 7. Kidney stones 8. CVA PAST SURGICAL HISTORY : 1. Appendectomy. 2. Prostatectomy IMAGING STUDIES: Ultrasound was performed to evaluate for thoracentesis. Only a small pocket of fluid could be identif ied and attempts at aspiration were unsuccessful. A chest radiograph demonstrated no evidence of pneu mothorax. Emery Truong MD on September 21, 2016 at 17:55 Board Certified Radiologist. This report was verified electronically.
--- NOTE | 2016-09-21 17:59 | RADRPT ---
EXAM DATE/TIME: 09/21/2016 15:50 [facility] COMPARISON: No previous studies available for comparison. INDICATIONS : Patient with cholecystitis in need of gallbladder drain placement. MEDICAL HISTORY : HTN, CHF, CVA, Diabetes, A-Fib, HLD, Dementia, Kidney stones, Prostate cancer SURGICAL HISTORY : Appendectomy, Prostatectomy ENCOUNTER: Initial ACUITY: 1 day PAIN SCORE: 0/10 FLUORO TIME: 1.1 minutes IMAGE SERIES: 2 SEDATION TIME: 60 minutes CONTRAST: 5 cc Omnipaque (iohexol) 350 MEDICATION(S): 1.) 2 mg midazolam (Versed) IV 2.) 100 mcg fentanyl (Sublimaze) IV DEVICE(S): 1.) 7 Croatian X20CM Skater catheter PROCEDURE : 1. Ultrasound guided puncture of the gallbladder. 2. Percutaneous cholangiogram. 3. Percutaneous cholecystostomy tube placement. 4. Conscious sedation with continuous EKG and oximetry monitoring. The risks, benefits and alternatives to the procedure were explained and verbal and written consent w as obtained. The site was prepped in sterile fashion. Full sterile technique was used, including ca p, mask, sterile gloves and gown and a large sterile sheet. Hand hygiene and 2% chlorhexidine and/or betadine/alcohol prep was utilized per protocol for cutaneous antisepsis. The skin and subcutaneous tissues were infiltrated with local anesthetic solution. With ultrasound and fluoroscopic guidance the gallbladder was punctured with a micropuncture set and a 4 Croatian dilator was placed. Injection of positive contrast demonstrates position within the gallb ladder. A 0.035 guidewire was placed within the gallbladder lumen and dilatation was performed to ac cept the prescribed catheter. Conscious sedation was performed with the prescribed dosages and duration as above in the presence of an independent trained radiology nurse to assist in the monitoring of the patient. EKG and oximetry remained stable throughout the procedure. The patient tolerated the procedure well and there were n o complications. The patient was sent to post anesthesia recovery in stable condition. CONCLUSION: Uncomplicated percutaneous cholecystostomy as above. Emery Truong MD on September 21, 2016 at 17:57 Board Certified Radiologist. This report was verified electronically.
[2016-09-21] MEDS: CIPROFLOXACIN 400 MG PREMIX 200 ML IV SCH (18:01)
--- NOTE | 2016-09-21 18:25 | MB ---
cc: DEVYN CAIN DO DATE OF CONSULTATION 09/21/16 IMPRESSION 1. Acute cholecystitis. 2. Probable recent myocardial infarction, non STEMI. The patient has very mild renal insufficiency, but the highest troponin I can see in the chart is above 19. 3. Hypertension. 4. Chronic atrial fibrillation on Eliquis therapy. 5. History of multiple strokes, a history of nonobstructive carotid disease. He has at least one history of intracranial hemorrhage/subarachnoid hemorrhage which was related to antithrombin therapy/warfarin. 6. Chronic atrial fibrillation. 7. Dementia. 8. History of prostate cancer status post prostatectomy. 9. Dilated cardiomyopathy [place] [employer] functional class four, etiology likely related to atherosclerotic heart disease. Most recent echocardiogram performed July of 2016, ejection fraction 25-30%. Left atrium dilated at 5 cm, right ventricular chamber dilatation with evidence of pulmonary hypertension and mild aortic insufficiency. 10. Advanced age. 11. History of congestive heart failure, recurrent. 12. History of basilar artery stenosis. 13. Degenerative joint disease and lumbar radiculopathy 14. Bilateral hemiparesis related to previous strokes RECOMMENDATIONS The patient is seen in interventional radiology where he is getting a cholecystoscopy tube placed. He will likely need a cholecystectomy at one point. He represents an extremely high perioperative risk for cardiovascular complications including based on his age, poor LV function. non sinus rhythm, history of stroke, history of dilated cardiomyopathy and congestive heart failure, anticoagulant status and suspected but not proven atherosclerotic heart disease. The patient has never had a cardiac catheterization as far as I know. CLINICAL DATA Mr. Ibrahim is an 86-year-old [facility] resident who is brought to [facility] with complaints of right upper quadrant tenderness and leukocytosis. He may have had a low grade fever, although this is not well documented. He had a CT scan demonstrating cholelithiasis and probable cholecystitis with thickening of the gallbladder wall. He had a previous CT scan demonstrating cholelithiasis. He had an elevated troponin level of 2.96 in the emergency room, subsequently up to nine. His EKG did not show any ST-segment elevation but demonstrated atrial fibrillation with poor R-wave progression and some probable inferior wall infarct and one PVC is noted. Incidental finding in the emergency room was decompensated congestive heart failure with bilateral pleural effusions, cardiomegaly and pulmonary venous congestion. He has a history of same, was hospitalized at [facility] in July for decompensated congestive heart failure. He has no clinical history of myocardial infarctions, has never had a catheterization. I cannot find a recent stress test on this patient in our office records. MEDICATIONS When he was last seen included 1. Eliquis 5 mg b.i.d. 2. Cetirizine 10 mg daily. 3. Fish oil capsules 4. Chondroitin sulfate capsules 5. Vitamins 6. Donepezil 10 daily, 7. Furosemide 20 daily, 8. Pantoprazole 40 daily, 9. Citalopram 20 daily, 10. Aspirin 81 two daily 11. Nifedical XL 30 mg daily, 12. Nasonex spray, 13. Astelin nasal spray, 14. Cyclobenzaprine 10 daily, 15. Clonidine 0.2 daily, 16. Atorvastatin 20 daily, 17. Lisinopril hydrochlorothiazide 20/25 daily, 18. Namenda 10 10 mg b.i.d. 19. Potassium citrate 10 b.i.d. 20. ___formin HCL 500 mg one b.i.d. ALLERGIES CEPHALEXIN PLAVIX Last stress test that we have available is from 2006, demonstrated small mixed perfusion defect in the apex. His ejection fraction at that time was 52%. He has chronic atrial fibrillation. PAST SURGICAL HISTORY 1. Right knee replacement 2. Total prostatectomy for prostate cancer. The patient is unable to give any real meaningful history. He denies chest pain to me but states that he has been having back pain and right upper quadrant pain. He has been having lower extremity edema and shortness of breath. The patient is not ambulatory. Does get out of bed in a wheelchair. He has had no syncopal episodes. He has had no seizures. He has had no shaking chills according to the patient, but again he is an unreliable historian. PHYSICAL EXAMINATION GENERAL: At this time demonstrates an awake gentleman who appears to be oriented. He does not recognize me, although I have seen him relatively recently in the office. VITAL SIGNS: Blood pressure 144/82. His temperature is not recorded, but he has been afebrile since admission. His pulse rate is about 80-90 and irregularly irregular. HEENT. Anicteric sclerae. Jugula venous pressures appear to be elevated. He has markedly diminished breath sounds. I do not hear any wheezes at this point in time. He has basilar crackles consistent with rales likely hydrostatic. CARDIOVASCULAR: Distant heart sounds irregular irregular rhythm, 2/6 systolic ejection murmur. There is no definite S3 noted at this time. ABDOMEN: Currently soft with mild tenderness in the right upper quadrant. He has 2 to 3+ edema to the knees bilaterally. He also has some edema in his thighs suggesting anasarca. IMAGING STUDIES Chest x-ray - Cardiomegaly, bilateral large pleural effusions, pulmonary venous congestion, early pulmonary edema. Radiographic studies suggest congestive heart failure on the chest x-ray. CT scan shows cholelithiasis with thickening of the gallbladder wall. Unclear if he had a positive Bazan sign. LABORATORY FINDINGS White cell count on admission 20,900, hematocrit of 31%, platelet count 188 on admission. The patient did have a left shift, 92 neutrophils, 11% bands noted. EKG as noted above. DISCUSSION This is an 86-year-old male with multiple medical problems including dementia, chronic atrial fibrillation on Eliquis, history of recurrent congestive heart failure, history of multiple cerebrovascular accidents. The patient is not ambulatory. RECOMMENDATIONS As noted above. The patient represents a high risk for perioperative cardiovascular complications. I would recommend repeating a 12-lead electrocardiogram. I would start the patient on low-dose beta blockers as tolerated. He will need DVT prophylaxis and stroke prophylaxis in the perioperative period. DO MANN Soto/ /3:14 PM /6:05 PM
[2016-09-21 18:28] LABS: CREATINE KINASE 253 U/L (39-308)
[2016-09-21 19:01] LABS: CKMB 15.7 NG/ML (0.5-3.6)
--- NOTE | 2016-09-21 19:03 | EC ---
Study Study Date:09/21/2016 STUDY CONCLUSIONS SUMMARY - Left ventricle: The cavity size was dilated. Wall thickness was at the upper limits of normal. Systolic function was severely reduced. The estimated ejection fraction was in the range of 25% to 30%. Wall motion was normal; there were no regional wall motion abnormalities. - Aortic valve: Mild regurgitation. Valve area: 2.02cm^2 (Vmax). - Mitral valve: Mild regurgitation. - Left atrium: The atrium was dilated. - Tricuspid valve: Mild regurgitation. - Pulmonary arteries: PA peak pressure: 44mm Hg (S). If LV function is below 40, please consider prescribing an ACEI or ARB or document rationale for non-use. PROCEDURE DATA STUDY STATUS: Elective. Procedure: Transthoracic echocardiography. Image quality was good. Scanning was performed from the parasternal, apical, and subcostal acoustic windows. Study completion: The patient tolerated the procedure well. Transthoracic echocardiography. M-mode, complete 2D, complete spectral Doppler, and color Doppler. Height: Height: 72in. Weight: Weight: 210.6lb. Body mass index: BMI: 28.6kg/m^2. Body surface area: BSA: 2.18m^2. Patient status: Inpatient. CARDIAC ANATOMY LEFT VENTRICLE: The cavity size was dilated. Wall thickness was at the upper limits of normal. Systolic function was severely reduced. The estimated ejection fraction was in the range of 25% to 30%. Wall motion was normal; there were no regional wall motion abnormalities. AORTIC VALVE: Trileaflet; normal thickness leaflets. Doppler: Transvalvular velocity was within the normal range. There was no stenosis. Mild regurgitation. Valve area: 2.02cm^2 (Vmax). Indexed valve area: 0.93cm^2/m^2 (Vmax). AORTA: Aortic root: The aortic root was normal in size. MITRAL VALVE: Structurally normal valve. Doppler: Transvalvular velocity was within the normal range. There was no evidence for stenosis. Mild regurgitation. Valve area by pressure half-time: 5.12cm^2. Indexed valve area by pressure half-time: 2.35cm^2/m^2. Mean gradient: 64mm Hg (D). Peak gradient: 94mm Hg (D). LEFT ATRIUM: The atrium was dilated. RIGHT VENTRICLE: The cavity size was normal. Wall thickness was normal. PULMONIC VALVE: Doppler: Transvalvular velocity was within the normal range. There was no evidence for stenosis. No regurgitation. TRICUSPID VALVE: Structurally normal valve. Doppler: Transvalvular velocity was within the normal range. Mild regurgitation. Peak gradient: 39mm Hg (D). PULMONARY ARTERY: The main pulmonary artery was normal-sized. Systolic pressure was within the normal range. RIGHT ATRIUM: The atrium was normal in size. PERICARDIUM: There was no pericardial effusion. SYSTEMIC VEINS: Inferior vena cava: The vessel was normal in size. Patient weight: 210.6lb _Ejection fraction:_ 65-75% _Fractional shortening:_ 32% up to 5Kg 5-11.5Kg 11.6-22.9Kg 23-45Kg 45-57Kg Aortic Root 7-13 <17 13-22 17-27 17-27 LA diam 6-13 <23 24-38 33-47 37-40 RVID 10-17 7-15 7-15 7-18 8-17 LVIDd 12-22 <32 24-38 33-47 37-40 LVPW 2-4 3-6 5-7 6-8 7-8 IVS 2-4 3-6 5-7 6-8 7-8 BASIC MEASUREMENTS ADULT NORMAL Left ventricle LV internal dimension, ED, chordal *58.8 mm 43-52 level, PLAX LV internal dimension, ES, chordal *49.6 mm 23-38 level, PLAX Fractional shortening, chordal level, *16 % >29 PLAX LV posterior wall thickness, ED 12.4 mm IVS/LVPW ratio, ED 0.98 <1.3 Volume, ED, MOD, 1-plane 143 ml Volume, ES, MOD, 1-plane 101 ml Ejection fraction, MOD, 1-plane 29 % Stroke volume, MOD, 1-plane 42 ml Volume index, ED, MOD, 1-plane 66 ml/m^2 Volume index, ES, MOD, 1-plane 46 ml/m^2 Stroke index, MOD, 1-plane 19.3 ml/m^2 Ventricular septum Septal thickness, ED 12.2 mm Aortic valve Leaflet separation 18 mm 15-26 Aorta Root diameter, ED 31 mm Left atrium Anterior-posterior dimension 48 mm Anterior-posterior dimension index *2.2 cm/m^2 <2.2 BASIC MEASUREMENTS ADULT NORMAL Aortic valve Leaflet separation 18 mm 15-26 Aorta Root diameter, ED 31 mm 20-37 DOPPLER MEASUREMENTS ADULT NORMAL Main pulmonary artery Pressure, S *44 mm Hg =30 Aortic valve Peak velocity, S 146 cm/s VTI, S 136 cm Valve area, Vmax 2.02 cm^2 Valve area index, Vmax 0.93 cm^2/m^2 Regurgitant velocity, ED 423 cm/s Regurgitant deceleration 2450 cm/s^2 Regurgitant pressure half-time 506 ms Regurgitant gradient, ED 72 mm Hg Mitral valve Peak E-wave velocity 126 cm/s Peak A-wave velocity 56.3 cm/s Mean velocity, D 370 cm/s Pressure half-time 43 ms Mean gradient, D 64 mm Hg Peak gradient, D 94 mm Hg Peak E/A ratio 2.2 Valve area, pressure half-time 5.12 cm^2 Valve area index, pressure half-time 2.35 cm^2/m^2 Tricuspid valve Peak gradient, D 39 mm Hg Maximal inflow velocity 312 cm/s Regurgitant peak velocity 306 cm/s Peak RV-RA gradient, S 37 mm Hg Systemic veins Estimated CVP 10 mm Hg Right ventricle RV pressure, S *47 mm Hg <30 Pulmonic valve Peak velocity, S 92.3 cm/s LEGEND: Mean values are shown as u=mean value. Asterisk (*) tran values outside specified normal range. Prepared and signed by Jose Nieto [id number]
--- NOTE | 2016-09-21 19:23 | EKG ---
Date Performed: 09/21/2016 Time Performed: 02:25:54 PTAGE: 86 years EKG: ATRIAL FLUTTER/TACHYCARDIA WITH ABERRANT CONDUCTION OR VENTRICULAR PREMATURE COMPLEXES POSS IBLE ANTERIOR MYOCARDIAL INFARCTION POSSIBLE INFERIOR MYOCARDIAL INFARCTION ABNORMAL ECG PREVIOUS TRACING : 05/31/1998 13.37 Compared to the previous tracing, previously sinus bradycar hermann DOCTOR: Ishmael Ferrer Interpretating Date/Time 09/21/2016 19:22:28
[2016-09-21] MEDS: NITROGLYCERIN 2% OINT 1 GM PACKET TOPICAL SCH (20:22)
[2016-09-21] MEDS: ATORVASTATIN 20 MG TAB PO SCH (20:22)
[2016-09-21] MEDS: METOPROLOL TARTRATE 5 MG/5 ML VIAL IV PUSH SCH (20:22)
[2016-09-21] MEDS: DONEPEZIL HCL 5 MG TAB PO SCH (20:23)
[2016-09-22] VITALS (13 sets, daily range): BP systolic 93–139; BP diastolic 54–91; PULSE 62–100; RESP 17–25; TEMP 98.4–98.9; O2SAT 93–100
[2016-09-22] MEDS: METOPROLOL TARTRATE 5 MG/5 ML VIAL IV PUSH SCH ×4 (02:00→20:14)
[2016-09-22] MEDS: NITROGLYCERIN 2% OINT 1 GM PACKET TOPICAL SCH ×4 (02:00→20:14)
[2016-09-22 03:57] LABS: AUTOMATED NEUTROPHIL # 15.2 TH/MM3 (1.8-7.7); BASOPHIL % 0.1 % (0.0-2.0); HEMATOCRIT 28.6 % (39.0-51.0); HEMO FLAGS DIFF FINAL; LYMPH % 3.5 % (9.0-44.0); LYMPHOCYTE # 0.6 TH/MM3 (1.0-4.8); MEAN CELL VOLUME 88.3 FL (80.0-100.0); MEAN CORPUSCULAR HEMOGLOBIN 28.7 PG (27.0-34.0); MEAN CORPUSCULAR HGB CONC 32.5 % (32.0-36.0); MONO % 5.5 % (0.0-8.0); NEUT % 90.9 % (16.0-70.0); PLATELET COUNT 179 TH/MM3 (150-450); RED BLOOD COUNT 3.24 MIL/MM3 (4.50-5.90); RED CELL DISTRIBUTION WIDTH 14.1 % (11.6-17.2); WHITE BLOOD COUNT 16.7 TH/MM3 (4.0-11.0)
[2016-09-22] MEDS: CHLORHEXIDINE GLUCONATE 2 % 1 PACK (2 CLOTHS) TOP SCH (04:00)
[2016-09-22 04:26] LABS: ALT (GPT) 21 U/L (12-78); ANION GAP 11 MEQ/L (5-15); AST (GOT) 49 U/L (15-37); BICARBONATE 26.4 MEQ/L (21.0-32.0); BLOOD UREA NITROGEN 32 MG/DL (7-18); CHLORIDE 104 MEQ/L (98-107); GLOMERULAR FILTRATION RATE 40 ML/MIN (>89); POTASSIUM 3.9 MEQ/L (3.5-5.1); SODIUM (NA) 141 MEQ/L (136-145)
[2016-09-22] MEDS: AZTREONAM INJ 1,000 MG in SODIUM CHLORIDE 0.9% INJ 100 ML IV SCH ×3 (04:40→20:14)
[2016-09-22 05:09] LABS: ALKALINE PHOSPHATASE 56 U/L (45-117); TOTAL BILIRUBIN ADULT 0.6 MG/DL (0.2-1.0)
[2016-09-22] MEDS: metroNIDAZOLE 500 MG INJ 100 ML IV SCH ×3 (05:12→20:39)
[2016-09-22] MEDS: HEPARIN SODIUM - SQ 10,000 UNITS/ML VIAL SQ SCH ×2 (05:12→18:00)
[2016-09-22] MEDS: INSULIN ASPART SUPPLEMENTAL SCALE SQ SCH ×5 (05:12→20:38)
[2016-09-22] MEDS: CIPROFLOXACIN 400 MG PREMIX 200 ML IV SCH ×2 (05:12→16:25)
[2016-09-22] MEDS: FUROSEMIDE 20 MG TAB PO SCH (08:47)
[2016-09-22] MEDS: PANTOPRAZOLE SOD 40 MG DELAYED RELEASE TAB PO SCH (08:47)
[2016-09-22] MEDS: MEMANTINE HCL 10 MG TAB PO SCH ×2 (08:47→20:15)
[2016-09-22] MEDS: ASPIRIN 300 MG SUPP RECTAL SCH (08:47)
[2016-09-22] MEDS: CARVEDILOL 6.25 MG TAB PO SCH ×2 (08:47→20:15)
[2016-09-22] MEDS: CITALOPRAM HYDROBROMIDE 20 MG TAB PO SCH (08:47)
[2016-09-22] MEDS: PANTOPRAZOLE SODIUM 40 MG VIAL IV SCH (09:00)
[2016-09-22] MEDS: FLUTICASONE PROPIONATE 50 MCG/ACT 16 GM NASAL SPRAY EACH NARE SCH (09:00)
[2016-09-22] MEDS: SODIUM CHLORIDE 0.9% FLUSH 5 ML FLUSH IV FLUSH SCH ×2 (09:00→20:14)
--- NOTE | 2016-09-22 09:34 | HHI.PR ---
Subjective Subjective Notes feels better, no abd pain, no CP Objective Vitals/I&O Vital Signs Date Time Temp Pulse Resp B/P Pulse Ox O2 Delivery O2 Flow Rate FiO2 09/22/16 06:00 88 09/22/16 04:00 98.9 25 131/66 96 09/21/16 21:11 Nasal Cannula 4.00 Labs Laboratory Tests Test 09/21/16 09/21/16 09/21/16 09/22/16 11:45 14:19 17:47 03:35 Troponin I 19.70 18.50 12.90 White Blood Count 20.9 16.7 Red Blood Count 3.49 3.24 Hemoglobin 10.1 9.3 Hematocrit 30.9 28.6 Mean Corpuscular Volume 88.6 88.3 Mean Corpuscular Hemoglobin 29.0 28.7 Mean Corpuscular Hemoglobin 32.8 32.5 Concent Red Cell Distribution Width 14.2 14.1 Platelet Count 188 179 Mean Platelet Volume 7.2 7.5 Prothrombin Time 15.7 Prothromb Time International 1.4 Ratio Activated Partial 37.1 Thromboplast Time Total Creatine Kinase 253 Creatine Kinase MB 15.7 Neutrophils (%) (Auto) 90.9 Lymphocytes (%) (Auto) 3.5 Monocytes (%) (Auto) 5.5 Eosinophils (%) (Auto) 0.0 Basophils (%) (Auto) 0.1 Neutrophils # (Auto) 15.2 Lymphocytes # (Auto) 0.6 Monocytes # (Auto) 0.9 Eosinophils # (Auto) 0.0 Basophils # (Auto) 0.0 CBC Comment DIFF FINAL Differential Comment Sodium Level 141 Potassium Level 3.9 Chloride Level 104 Carbon Dioxide Level 26.4 Anion Gap 11 Blood Urea Nitrogen 32 Creatinine 1.64 Estimat Glomerular Filtration 40 Rate Random Glucose 123 Lactic Acid Level 1.3 Calcium Level 8.3 Phosphorus Level 3.6 Total Bilirubin 0.6 Aspartate Amino Transf 49 (AST/SGOT) Alanine Aminotransferase 21 (ALT/SGPT) Alkaline Phosphatase 56 Total Protein 5.2 Albumin 2.1 Thyroid Stimulating Hormone 1.980 3rd Gen Phenytoin (Dilantin) Level 0.8 Date/Time Procedure Status Source Growth 09/21/16 02:55 Urine Culture Worksheet Urine Catheterized Urine Pending 09/21/16 02:55 Influenza Types A,B Antigen (ANUJA) - Final Complete Nasal Washing NEGATIVE FOR FLU A AND B ANTIGEN.... 09/21/16 02:40 Aerobic Blood Culture Worksheet Blood Peripheral Pending 09/21/16 02:40 Anaerobic Blood Culture Worksheet Blood Peripheral Pending Radiology Last 48 hours Impressions Abdomen/Pelvis CT 09/21/16239 Signed Impressions: Service Date/Time: Wednesday, September 21, 2016 03:27 - CONCLUSION: 1. Abnormal appearance to the gallbladder with multiple small calcified stones, marked distention of the gallbladder, and induration of the fat about the gallbladder tracking along the mesentery in the right upper quadrant. Recommend correlation with clinical exam for possible acute cholecystitis.. 2. Large bilateral pleural effusions, right greater than left. Morgan Venegas MD Chest X-Ray 09/21/163 Signed Impressions: Service Date/Time: Wednesday, September 21, 2016 02:43 - CONCLUSION: Left lower lobe consolidation and patchy infiltrates in the right mid and lower lung. Cardiomegaly. Morgan Venegas MD Abdomen: Non-distended, Non-tender Narrative Exam biliary drain in place A/P Assessment and Plan 86yo male s/p CT with mitchell tube for acute cholecystitis, stable. continue current care, call if needed. ultimately can f/u with me in several weeks for drain mgmt. Raj Early MD Sep 22, 2016 09:34
--- NOTE | 2016-09-22 14:11 | EKG ---
Date Performed: 09/21/2016 Time Performed: 17:23:06 PTAGE: 86 years EKG: Atrial fibrillation Possible anterior infarct - age undetermined Inferior/lateral ST-T rodriguez ges are nonspecific Compared to prior tracing no significant change Abnormal ECG PREVIOUS TRACING : 09/21/2016 02.25 DOCTOR: Hilario Sawyer Interpretating Date/Time 09/22/2016 14:10:58
--- NOTE | 2016-09-22 14:13 | EKG ---
Date Performed: 09/22/2016 Time Performed: 03:58:14 PTAGE: 86 years EKG: Atrial fibrillation Possible anteroseptal infarct - age undetermined Inferior/lateral ST-T changes are nonspecific Compared to prior tracing no significant change Abnormal ECG PREVIOUS TRACING : 09/21/2016 17.23 DOCTOR: Hilario Sawyer Interpretating Date/Time 09/22/2016 14:11:31
[2016-09-22] MEDS ORDERED: SODIUM CHLOR 0.9% 1000 ML INJ 1,000 ML IV ONE (15:00)
[2016-09-22] MEDS: SODIUM CHLOR 0.9% 1000 ML INJ 1,000 ML IV SCH (15:00)
[2016-09-22] MEDS ORDERED: ALBUMIN HUMAN 25% 25 GM/100 ML BAGP IV ONE (15:00)
--- NOTE | 2016-09-22 15:36 | HHI.CCPN ---
Subjective Remarks/Hospital Course 86 y/o [facility] resident presents with leukocytosis, right upper quadrant tenderness, CT finding consistent with cholecystitis. Clearly chronic heart failure with large bilateral pleural effusions and BNP > 1000. Troponin elevated at 2.96. Subjective 09/22: Status post percutaneous cholecystostomy tube placed yesterday. -200 cc per report. This has clotted off today. Dr. Truong aware. White cell count declining. Decreased urine output noted. Objective Vital Signs Date Time Temp Pulse Resp B/P Pulse Ox O2 Delivery O2 Flow Rate FiO2 09/22/16 12:00 82 09/22/16 12:00 98.7 17 98/57 93 09/22/16 07:00 Nasal Cannula 4.00 Intake and Output 09/21/16 09/21/16 09/22/16 08:00 16:00 00:00 Intake Total 117 ml 450 ml Output Total 120 ml Balance 117 ml 330 ml Result Diagram: 09/22/16 0335 09/22/16 0335 Other Results Microbiology Date/Time Procedure Status Source Growth 09/21/16 02:55 Urine Culture - Preliminary Resulted Urine Catheterized Urine Gram Negative Arpit 09/21/16 02:55 Influenza Types A,B Antigen (ANUJA) - Final Complete Nasal Washing NEGATIVE FOR FLU A AND B ANTIGEN.... 09/21/16 02:40 Aerobic Blood Culture - Preliminary Resulted Blood Peripheral NO GROWTH IN 1 DAY 09/21/16 02:40 Anaerobic Blood Culture - Preliminary Resulted Blood Peripheral NO GROWTH IN 1 DAY Imaging Last Impressions Abdomen/Pelvis CT 09/21/16 0240 Signed Impressions: Service Date/Time: Wednesday, September 21, 2016 03:27 - CONCLUSION: 1. Abnormal appearance to the gallbladder with multiple small calcified stones, marked distention of the gallbladder, and induration of the fat about the gallbladder tracking along the mesentery in the right upper quadrant. Recommend correlation with clinical exam for possible acute cholecystitis.. 2. Large bilateral pleural effusions, right greater than left. Morgan Venegas MD Chest X-Ray 09/21/16 0233 Signed Impressions: Service Date/Time: Wednesday, September 21, 2016 02:43 - CONCLUSION: Left lower lobe consolidation and patchy infiltrates in the right mid and lower lung. Cardiomegaly. Morgan Venegas MD Percutaneous Cholangiogram 09/21/16 0000 Signed Impressions: Service Date/Time: Wednesday, September 21, 2016 15:50 - CONCLUSION: Uncomplicated percutaneous cholecystostomy as above. Emery Truong MD Objective Remarks GENERAL: 86-year-old male, critically ill currently resting in bed SKIN: Warm and dry. No rash HEAD: Atraumatic. Normocephalic. EYES: Pupils equal and round about 2 mm bilaterally and reactive. No scleral icterus. No injection or drainage. ENT: No nasal bleeding or discharge. Mucous membranes pink and moist. NECK: Trachea midline. No JVD. CARDIOVASCULAR: IRR. S1, S2 no S4. RESPIRATORY: Coarse crackles appreciated bilaterally throughout all lung figueroa. Positive end expiratory wheeze. GASTROINTESTINAL: Abdomen soft, non-tender,. Cholecystostomy drain in right upper quadrant. No active bleeding. MUSCULOSKELETAL: Extremities without significant peripheral edema. No obvious deformities. NEUROLOGICAL: Awake and alert. No obvious cranial nerve deficits. Motor grossly within normal limits. 4 out of 5 muscle strength in the arms and legs. Normal speech. 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 Continue Celexa 20 mg by mouth daily for depression. Acetaminophen for fever [place]/as needed morphine for pain management CV: Chronic atrial fibrillation Nonobstructive coronary disease History of dilated coronary ejection fraction 25-30 percent Basilar artery stenosis Pulmonary hypertension Hypertension Dyslipidemia Evaluate by cardiology. Currently on Coreg 6.25 mg by mouth twice a day. Also written for Lopressor 5 IV every 6 hours and Nitropaste 2 inches every 6 hours by cardiology. Continue atorvastatin 20 mg by mouth daily for dyslipidemia. Currently holding fish oil daily Home medications include lisinopril/hydrochlorothiazide 20/25 1 tab daily, clonidine 0.2 mg daily and nifedipine 30 mg by mouth daily. Troponin peaked at approximately 19. Continue aspirin 300 mg per rectum daily. T Lasix 20 mg by mouth daily. Echocardiogram revealed- Left ventricle: The cavity size was dilated. Wall thickness was at the upper limits of normal. Systolic function was severely reduced. The estimated ejection fraction was in the range of 25% to 30%. Wall motion was normal; there were no regional wall motion abnormalities. - Aortic valve: Mild regurgitation. Valve area: 2.02cm^2 (Vmax). - Mitral valve: Mild regurgitation. - Left atrium: The atrium was dilated. - Tricuspid valve: Mild regurgitation. - Pulmonary arteries: PA peak pressure: 44mm Hg (S). Resp: Respiratory insufficiency/acute secondary to Bilateral pleural effusions Nasal cannula to maintain saturations greater or equal to 92% Incentive spirometry while awake Gentle diuresis with Lasix Not enough visualized fluid for thoracentesis by IR yesterday All of chest x-ray in a.m. GI: Acute cholecystitis Status post percutaneous cholecystostomy 2 by IR 09/21 Evaluated by general surgery. Recommended cholecystostomy tube. Monitor LFTs. Currently clotted off. IR is aware. Start on clear liquid diet. Protonix for GI prophylaxis. Colace/as needed Senokot for bowel regimen : History of prostate cancer Macias will be placed for accurate I's and Os critically ill patient Endo: Sliding-scale insulin if indicated to maintain euglycemia Renal: Acute kidney injury Recheck BMP in a.m. *Normal saline at 84 cc now. Heme: Normocytic anemia Leukocytosis Thrombocytosis Chronic Eliquis use Monitor CBC/CMP daily. Holding Eliquis. Will need anticoagulation for DVT/CVA prophylaxis. Start heparin drip this afternoon 24 hours post cholecystostomy tube placement ID: Urinary tract infection - gram-negative arpit 1 out of 4 blood cultures gram cocci positive likely contaminant Recheck blood cultures 2. Day 2 ciprofloxacin, aztreonam and Flagyl. FEN: Replace electrolytes as clinically indicated MSK: Osteoarthritis PT evaluate and treat Access - Utilize peripheral IV. Central line if indicated Prophylaxis - GI - Protonix - DVT - SCD/heparin drip Critical Care: The total critical care time was 45 minutes. Time to perform other separately billable procedures was not included in the critical care time. Problem Qualifiers (1) Sepsis: Qualified Code: A41.9 - Sepsis, due to unspecified organism (2) UTI (urinary tract infection): Qualified Code: N39.0 - Urinary tract infection with hematuria, site unspecified Omar Romo MD Sep 22, 2016 15:36
[2016-09-22 15:54] LABS: APTT (PATIENT) 39.2 SEC (24.3-30.1)
[2016-09-22] MEDS ORDERED: RESP: ALBUTEROL 2.5 MG/IPRATROPIUM 0.5 MG NEB (PRN) INH (16:00)
[2016-09-22] MEDS ORDERED: ONDANSETRON HCL 4 MG/2 ML VIAL IV PRN (16:00)
[2016-09-22] MEDS ORDERED: MORPHINE SULFATE 4 MG/ML INJ IV PRN (16:00)
[2016-09-22] MEDS ORDERED: SENNOSIDES 8.6 MG TAB PO PRN (16:00)
[2016-09-22] MEDS ORDERED: ACETAMINOPHEN 325 MG TAB PO PRN (16:00)
[2016-09-22] MEDS: DONEPEZIL HCL 5 MG TAB PO SCH (20:14)
[2016-09-22] MEDS: ATORVASTATIN 20 MG TAB PO SCH (20:15)
[2016-09-22] MEDS: DOCUSATE SODIUM 100 MG CAP PO SCH (20:15)
[2016-09-22 21:38] LABS: APTT (PATIENT) 104.5 SEC (24.3-30.1)
[2016-09-23] VITALS (13 sets, daily range): BP systolic 135–165; BP diastolic 67–79; PULSE 57–86; RESP 17–29; TEMP 97.5–98.8; O2SAT 21–99
[2016-09-23] MEDS: SODIUM CHLOR 0.9% 1000 ML INJ 1,000 ML IV SCH ×3 (00:58→20:20)
[2016-09-23 01:30] LABS: APTT (PATIENT) 71.7 SEC (24.3-30.1)
[2016-09-23] MEDS: NITROGLYCERIN 2% OINT 1 GM PACKET TOPICAL SCH ×4 (01:56→20:19)
[2016-09-23] MEDS: METOPROLOL TARTRATE 5 MG/5 ML VIAL IV PUSH SCH (01:56)
[2016-09-23] MEDS: CHLORHEXIDINE GLUCONATE 2 % 1 PACK (2 CLOTHS) TOP SCH (03:16)
[2016-09-23] MEDS: AZTREONAM INJ 1,000 MG in SODIUM CHLORIDE 0.9% INJ 100 ML IV SCH (03:17)
[2016-09-23] MEDS: metroNIDAZOLE 500 MG INJ 100 ML IV SCH (04:35)
[2016-09-23] MEDS: CIPROFLOXACIN 400 MG PREMIX 200 ML IV SCH ×2 (04:36→17:18)
--- NOTE | 2016-09-23 06:05 | RADRPT ---
EXAM DATE/TIME: 09/23/2016 03:51 [place] COMPARISON: CHEST SINGLE AP, September 21, 2016, 16:48. INDICATIONS : Shortness of breath. MEDICAL HISTORY : Hypertension. Diabetes mellitus type II. SURGICAL HISTORY : None. ENCOUNTER: Subsequent ACUITY: 3 days PAIN SCORE: Non-responsive. LOCATION: Bilateral chest FINDINGS: There is increasing diffuse opacity in the right mid and lower lung and persistent consolidation in t he left lower lung. This loss of delineation of both hemidiaphragms. Cardiomegaly is stable. CONCLUSION: Increasing infiltrates in the right lung and persistent left lower lung consolidation. Morgan Venegas MD on September 23, 2016 at 6:03 Board Certified Radiologist. This report was verified electronically.
[2016-09-23] MEDS: INSULIN ASPART SUPPLEMENTAL SCALE SQ SCH ×4 (06:20→20:18)
[2016-09-23 06:25] LABS: AUTOMATED NEUTROPHIL # 10.8 TH/MM3 (1.8-7.7); EOSINOPHIL % 0.1 % (0.0-4.0); HEMATOCRIT 25.3 % (39.0-51.0); HEMO FLAGS DIFF FINAL; LYMPHOCYTE # 0.7 TH/MM3 (1.0-4.8); MEAN CELL VOLUME 88.5 FL (80.0-100.0); MEAN CORPUSCULAR HEMOGLOBIN 29.2 PG (27.0-34.0); MONO % 5.7 % (0.0-8.0); NEUT % 88.2 % (16.0-70.0); PLATELET COUNT 193 TH/MM3 (150-450); RED BLOOD COUNT 2.86 MIL/MM3 (4.50-5.90); RED CELL DISTRIBUTION WIDTH 14.2 % (11.6-17.2); WHITE BLOOD COUNT 12.3 TH/MM3 (4.0-11.0)
[2016-09-23 07:03] LABS: ALKALINE PHOSPHATASE 75 U/L (45-117); ALT (GPT) 23 U/L (12-78); ANION GAP 12 MEQ/L (5-15); AST (GOT) 37 U/L (15-37); BICARBONATE 24.6 MEQ/L (21.0-32.0); BLOOD UREA NITROGEN 46 MG/DL (7-18); CHLORIDE 105 MEQ/L (98-107); GLOMERULAR FILTRATION RATE 28 ML/MIN (>89); MAGNESIUM 2.2 MG/DL (1.5-2.5); POTASSIUM 3.5 MEQ/L (3.5-5.1); SODIUM (NA) 142 MEQ/L (136-145); TOTAL BILIRUBIN ADULT 0.4 MG/DL (0.2-1.0)
[2016-09-23 07:24] LABS: APTT (PATIENT) 77.4 SEC (24.3-30.1)
--- NOTE | 2016-09-23 07:52 | HHI.CCPN ---
Subjective Remarks/Hospital Course 86 y/o [facility] resident presents with leukocytosis, right upper quadrant tenderness, CT finding consistent with cholecystitis. Clearly chronic heart failure with large bilateral pleural effusions and BNP > 1000. Troponin elevated at 2.96. Subjective 09/22: Status post percutaneous cholecystostomy tube placed yesterday. -200 cc per report. This has clotted off today. Dr. Truong aware. White cell count declining. Decreased urine output noted. 09/23: Start PO lopressor. Increase IV fluid. Objective Vital Signs Date Time Temp Pulse Resp B/P Pulse Ox O2 Delivery O2 Flow Rate FiO2 09/23/16 07:25 93 Nasal Cannula 3.00 09/23/16 06:00 82 09/23/16 04:00 98.3 17 138/70 Intake and Output 09/22/16 09/22/16 09/23/16 08:00 16:00 00:00 Intake Total 663 ml 499 ml 1392 ml Output Total 220 ml 150 ml 160 ml Balance 443 ml 349 ml 1232 ml Result Diagram: 09/23/16 0602 09/23/16 0602 Other Results Microbiology Date/Time Procedure Status Source Growth 09/21/16 02:55 Influenza Types A,B Antigen (ANUJA) - Final Complete Nasal Washing NEGATIVE FOR FLU A AND B ANTIGEN.... Imaging Last Impressions Abdomen/Pelvis CT 09/21/16 0240 Signed Impressions: Service Date/Time: Wednesday, September 21, 2016 03:27 - CONCLUSION: 1. Abnormal appearance to the gallbladder with multiple small calcified stones, marked distention of the gallbladder, and induration of the fat about the gallbladder tracking along the mesentery in the right upper quadrant. Recommend correlation with clinical exam for possible acute cholecystitis.. 2. Large bilateral pleural effusions, right greater than left. Morgan Venegas MD Chest X-Ray 09/21/16 0233 Signed Impressions: Service Date/Time: Wednesday, September 21, 2016 02:43 - CONCLUSION: Left lower lobe consolidation and patchy infiltrates in the right mid and lower lung. Cardiomegaly. Morgan Venegas MD Percutaneous Cholangiogram 09/21/16 0000 Signed Impressions: Service Date/Time: Wednesday, September 21, 2016 15:50 - CONCLUSION: Uncomplicated percutaneous cholecystostomy as above. Emery Truong MD Objective Remarks GENERAL: 86-year-old male, critically ill currently resting in bed SKIN: Warm and dry. No rash HEAD: Atraumatic. Normocephalic. EYES: Pupils equal and round about 2 mm bilaterally and reactive. No scleral icterus. No injection or drainage. ENT: No nasal bleeding or discharge. Mucous membranes pink and moist. NECK: Trachea midline. No JVD. CARDIOVASCULAR: IRR. S1, S2 no S4. RESPIRATORY: Coarse crackles appreciated bilaterally throughout all lung figueroa. Positive end expiratory wheeze. GASTROINTESTINAL: Abdomen soft, non-tender,. Cholecystostomy drain in right upper quadrant. No active bleeding. MUSCULOSKELETAL: Extremities without significant peripheral edema. No obvious deformities. NEUROLOGICAL: Awake and alert. No obvious cranial nerve deficits. Motor grossly within normal limits. 4 out of 5 muscle strength in the arms and legs. Normal speech. 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 Continue Celexa 20 mg by mouth daily for depression. Acetaminophen for fever [place]/as needed morphine for pain management CV: Chronic atrial fibrillation Nonobstructive coronary disease History of dilated coronary ejection fraction 25-30 percent Basilar artery stenosis Pulmonary hypertension Hypertension Dyslipidemia Evaluate by cardiology. Currently on Coreg 6.25 mg by mouth twice a day. Also written for Lopressor 5 IV every 6 hours and Nitropaste 2 inches every 6 hours by cardiology. Continue atorvastatin 20 mg by mouth daily for dyslipidemia. Currently holding fish oil daily Home medications include lisinopril/hydrochlorothiazide 20/25 1 tab daily, clonidine 0.2 mg daily and nifedipine 30 mg by mouth daily. Troponin peaked at approximately 19. Continue aspirin 300 mg per rectum daily. T Lasix 20 mg by mouth daily. Echocardiogram revealed- Left ventricle: The cavity size was dilated. Wall thickness was at the upper limits of normal. Systolic function was severely reduced. The estimated ejection fraction was in the range of 25% to 30%. Wall motion was normal; there were no regional wall motion abnormalities. - Aortic valve: Mild regurgitation. Valve area: 2.02cm^2 (Vmax). - Mitral valve: Mild regurgitation. - Left atrium: The atrium was dilated. - Tricuspid valve: Mild regurgitation. - Pulmonary arteries: PA peak pressure: 44mm Hg (S). D/C heparin gtt, convert to sq Resp: Respiratory insufficiency/acute secondary to Bilateral pleural effusions Nasal cannula to maintain saturations greater or equal to 92% Incentive spirometry while awake Gentle diuresis with Lasix Not enough visualized fluid for thoracentesis by IR yesterday All of chest x-ray in a.m. GI: Acute cholecystitis Status post percutaneous cholecystostomy 2 by IR 09/21 Evaluated by general surgery. Recommended cholecystostomy tube. Monitor LFTs. Currently clotted off. IR is aware. Start on clear liquid diet. Protonix for GI prophylaxis. Colace/as needed Senokot for bowel regimen : History of prostate cancer Macias will be placed for accurate I's and Os critically ill patient Endo: Sliding-scale insulin if indicated to maintain euglycemia Renal: Acute kidney injury Recheck BMP in a.m. *Normal saline at 125 cc now. Heme: Normocytic anemia Leukocytosis Thrombocytosis Chronic Eliquis use Monitor CBC/CMP daily. Holding Eliquis. Will need anticoagulation for DVT/CVA prophylaxis. Start heparin drip this afternoon 24 hours post cholecystostomy tube placement ID: Urinary tract infection - gram-negative silvino 1 out of 4 blood cultures gram cocci positive likely contaminant Recheck blood cultures 2. Day 3 ciprofloxacin, aztreonam and Flagyl. FEN: Replace electrolytes as clinically indicated MSK: Osteoarthritis PT evaluate and treat Access - Utilize peripheral IV. Central line if indicated Prophylaxis - GI - Protonix - DVT - SCD/ SQ heparin Overall impression: Resolving sepsis s/p GB drainage. Improving, but still quite ill. Problem Qualifiers (1) Sepsis: Qualified Code: A41.9 - Sepsis, due to unspecified organism (2) UTI (urinary tract infection): Qualified Code: N39.0 - Urinary tract infection with hematuria, site unspecified Pola Briones MD Sep 23, 2016 07:52
[2016-09-23] MEDS: CITALOPRAM HYDROBROMIDE 20 MG TAB PO SCH (08:45)
[2016-09-23] MEDS: CARVEDILOL 6.25 MG TAB PO SCH ×2 (08:45→20:19)
[2016-09-23] MEDS: METOPROLOL TARTRATE 25 MG TAB PO SCH ×2 (08:45→20:19)
[2016-09-23] MEDS: ASPIRIN 300 MG SUPP RECTAL SCH (08:45)
[2016-09-23] MEDS: PANTOPRAZOLE SOD 40 MG DELAYED RELEASE TAB PO SCH (08:46)
[2016-09-23] MEDS: FUROSEMIDE 20 MG TAB PO SCH (08:46)
[2016-09-23] MEDS: MEMANTINE HCL 10 MG TAB PO SCH ×2 (08:48→20:19)
[2016-09-23] MEDS: HEPARIN SODIUM - SQ 10,000 UNITS/ML VIAL SQ SCH ×2 (08:48→20:18)
[2016-09-23] MEDS: FLUTICASONE PROPIONATE 50 MCG/ACT 16 GM NASAL SPRAY EACH NARE SCH (09:00)
[2016-09-23] MEDS: PANTOPRAZOLE SODIUM 40 MG VIAL IV SCH (09:00)
[2016-09-23] MEDS: SODIUM CHLORIDE 0.9% FLUSH 5 ML FLUSH IV FLUSH SCH ×2 (09:00→20:20)
[2016-09-23] MEDS: DOCUSATE SODIUM 100 MG CAP PO SCH ×2 (09:00→20:20)
[2016-09-23] MEDS: AZTREONAM INJ 500 MG in SODIUM CHLORIDE 0.9% INJ 100 ML IV SCH ×2 (11:44→17:18)
[2016-09-23] MEDS: ATORVASTATIN 20 MG TAB PO SCH (20:19)
[2016-09-23] MEDS: DONEPEZIL HCL 5 MG TAB PO SCH (20:19)
[2016-09-24] VITALS (14 sets, daily range): BP systolic 133–166; BP diastolic 70–95; PULSE 62–95; RESP 19–25; TEMP 98.2–98.9; O2SAT 94–99
[2016-09-24] MEDS: NITROGLYCERIN 2% OINT 1 GM PACKET TOPICAL SCH ×4 (02:13→20:57)
[2016-09-24] MEDS: AZTREONAM INJ 500 MG in SODIUM CHLORIDE 0.9% INJ 100 ML IV SCH ×3 (02:14→20:57)
[2016-09-24] MEDS: CHLORHEXIDINE GLUCONATE 2 % 1 PACK (2 CLOTHS) TOP SCH (03:27)
[2016-09-24] MEDS: SODIUM CHLOR 0.9% 1000 ML INJ 1,000 ML IV SCH (03:28)
[2016-09-24 04:16] LABS: AUTOMATED NEUTROPHIL # 6.1 TH/MM3 (1.8-7.7); BASOPHIL % 0.2 % (0.0-2.0); EOSINOPHIL # 0.1 TH/MM3 (0-0.4); EOSINOPHIL % 1.2 % (0.0-4.0); HEMATOCRIT 23.4 % (39.0-51.0); HEMO FLAGS DIFF FINAL; LYMPH % 9.6 % (9.0-44.0); LYMPHOCYTE # 0.7 TH/MM3 (1.0-4.8); MEAN CELL VOLUME 87.6 FL (80.0-100.0); MEAN CORPUSCULAR HEMOGLOBIN 29.4 PG (27.0-34.0); MEAN CORPUSCULAR HGB CONC 33.6 % (32.0-36.0); MONO % 7.3 % (0.0-8.0); NEUT % 81.7 % (16.0-70.0); PLATELET COUNT 184 TH/MM3 (150-450); RED BLOOD COUNT 2.68 MIL/MM3 (4.50-5.90); RED CELL DISTRIBUTION WIDTH 14.1 % (11.6-17.2); WHITE BLOOD COUNT 7.5 TH/MM3 (4.0-11.0)
[2016-09-24 04:46] LABS: BICARBONATE 24.8 MEQ/L (21.0-32.0); POTASSIUM 3.2 MEQ/L (3.5-5.1)
[2016-09-24] MEDS: CIPROFLOXACIN 400 MG PREMIX 200 ML IV SCH ×2 (05:06→18:09)
[2016-09-24] MEDS: INSULIN ASPART SUPPLEMENTAL SCALE SQ SCH ×4 (05:46→21:32)
[2016-09-24] MEDS: CARVEDILOL 6.25 MG TAB PO SCH ×2 (08:35→20:57)
[2016-09-24] MEDS: FUROSEMIDE 20 MG TAB PO SCH (08:35)
[2016-09-24] MEDS: PANTOPRAZOLE SOD 40 MG DELAYED RELEASE TAB PO SCH (08:35)
[2016-09-24] MEDS: METOPROLOL TARTRATE 25 MG TAB PO SCH ×2 (08:35→20:58)
[2016-09-24] MEDS: MEMANTINE HCL 10 MG TAB PO SCH ×2 (08:35→20:57)
[2016-09-24] MEDS: CITALOPRAM HYDROBROMIDE 20 MG TAB PO SCH (08:35)
[2016-09-24] MEDS: DOCUSATE SODIUM 100 MG CAP PO SCH ×2 (08:36→20:58)
[2016-09-24] MEDS: FLUTICASONE PROPIONATE 50 MCG/ACT 16 GM NASAL SPRAY EACH NARE SCH (08:36)
[2016-09-24] MEDS: PANTOPRAZOLE SODIUM 40 MG VIAL IV SCH (08:36)
[2016-09-24] MEDS: SODIUM CHLORIDE 0.9% FLUSH 5 ML FLUSH IV FLUSH SCH ×2 (08:36→20:57)
[2016-09-24] MEDS: ASPIRIN 300 MG SUPP RECTAL SCH (08:37)
[2016-09-24] MEDS: HEPARIN SODIUM - SQ 10,000 UNITS/ML VIAL SQ SCH ×2 (08:37→20:58)
[2016-09-24] MEDS ORDERED: SODIUM CHLOR 0.9% 1000 ML INJ 1,000 ML IV SCH (09:00)
--- NOTE | 2016-09-24 09:10 | HHI.PR ---
Objective Vitals Result Diagram: 09/24/16 0325 09/24/16 0325 Bettie Casas MD Sep 24, 2016 09:10 09/24/16 04:00 98.4 74 19 158/70 97 09/24/16 04:00 74 09/24/16 02:00 70 09/24/16 00:00 70 09/24/16 00:00 98.3 70 20 133/83 94 09/23/16 22:00 62 09/23/16 20:00 98.3 84 23 165/79 97 09/23/16 20:00 84 09/23/16 20:00 98 Nasal Cannula 2.00 09/23/16 19:00 96 Nasal Cannula 2.00 09/23/16 18:00 85 09/23/16 16:00 98.8 78 26 162/76 97 09/23/16 16:00 84 09/23/16 14:00 84 09/23/16 12:00 82 09/23/16 12:00 97.5 57 29 135/69 99 09/23/16 10:00 82 I/O 09/23/16 09/23/16 09/23/16 09/24/16 09/24/16 09/24/16 07:00 15:00 23:00 07:00 15:00 23:00 Intake Total 817 ml 1827 ml 1101 ml 1088 ml Output Total 150 ml 250 ml 275 ml 320 ml Balance 667 ml 1577 ml 826 ml 768 ml Intake Oral 90 ml 700 ml 200 ml 80 ml IV Total 727 ml 1127 ml 901 ml 1008 ml Output Urine Total 150 ml 250 ml 275 ml 300 ml Drainage Total 0 ml 0 ml 0 ml 20 ml # Bowel Movements 0 1 1 1 Result Diagram: 09/24/16 0325 09/24/16 0325 Bettie Casas MD Sep 24, 2016 09:10 Neuro/Psych: Dementia disorder 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 Continue Celexa 20 mg by mouth daily for depression. 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 Currently on Coreg 6.25 mg by mouth twice a day. Also written for Lopressor 5 IV every 6 hours and Nitropaste 2 inches every 6 hours by cardiology. Continue atorvastatin 20 mg by mouth daily for dyslipidemia. Currently holding fish oil daily Home medications include lisinopril/hydrochlorothiazide 20/25 1 tab daily, clonidine 0.2 mg daily and nifedipine 30 mg by mouth daily. Troponin peaked at approximately 19. Continue aspirin 300 mg per rectum daily. T Lasix 20 mg by mouth daily. Echocardiogram revealed- Left ventricle: The cavity size was dilated. Wall thickness was at the upper limits of normal. Systolic function was severely reduced. The estimated ejection fraction was in the range of 25% to 30%. Wall motion was normal; there were no regional wall motion abnormalities. - Aortic valve: Mild regurgitation. Valve area: 2.02cm^2 (Vmax). - Mitral valve: Mild regurgitation. - Left atrium: The atrium was dilated. - Tricuspid valve: Mild regurgitation. - Pulmonary arteries: PA peak pressure: 44mm Hg (S). D/C heparin gtt, convert to sq Resp: Respiratory insufficiency/acute secondary to Bilateral pleural effusions Nasal cannula to maintain saturations greater or equal to 92% Incentive spirometry while awake Gentle diuresis with Lasix Not enough visualized fluid for thoracentesis by IR yesterday All of chest x-ray in a.m. GI: Acute cholecystitis Status post percutaneous cholecystostomy 2 by IR 09/21 Evaluated by general surgery. Recommended cholecystostomy tube. Monitor LFTs. Currently clotted off. IR is aware. Start on clear liquid diet. Protonix for GI prophylaxis. Colace/as needed Senokot for bowel regimen : History of prostate cancer Macias will be placed for accurate I's and Os critically ill patient Endo: Sliding-scale insulin if indicated to maintain euglycemia Renal: Acute kidney injury Recheck BMP in a.m. *Normal saline at 125 cc now. Heme: Normocytic anemia Leukocytosis Thrombocytosis Chronic Eliquis use Monitor CBC/CMP daily. Holding Eliquis. Will need anticoagulation for DVT/CVA prophylaxis. Start heparin drip this afternoon 24 hours post cholecystostomy tube placement ID: Urinary tract infection - gram-negative silvino 1 out of 4 blood cultures gram cocci positive likely contaminant Recheck blood cultures 2. Day 3 ciprofloxacin, aztreonam and Flagyl. FEN: Replace electrolytes as clinically indicated MSK: Osteoarthritis PT evaluate and treat Access - Utilize peripheral IV. Central line if indicated Prophylaxis - GI - Protonix - DVT - SCD/ SQ heparin Overall impression: Resolving sepsis s/p GB drainage. Improving, but still quite ill. Bettie Casas MD Sep 24, 2016 09:10
[2016-09-24] MEDS ORDERED: POTASSIUM CHLORIDE 10 MEQ CONTROLLED RELEASE TAB PO ONE (09:15)
[2016-09-24] MEDS ORDERED: BUMETANIDE INJ 1 MG/4 ML VIAL IV PUSH ONE (09:15)
[2016-09-24] MEDS: RESP: ALBUTEROL 2.5 MG/IPRATROPIUM 0.5 MG NEB (PRN) INH (09:24)
[2016-09-24] MEDS: ASPIRIN EC 325 MG TABEC PO SCH (09:49)
--- NOTE | 2016-09-24 12:14 | RADRPT ---
EXAM DATE/TIME: 09/24/2016 10:09 [facility] COMPARISON: CT ABDOMEN & PELVIS W CONTRAST, September 21, 2016, 3:27. INDICATIONS : Increased BUN/creatinine. MEDICAL HISTORY : Carcinoma, prostate. Hypercholesterolemia. Renal calculi. CHF. Ischemic and hemorrhagic stroke. Demen tia. Afib. Hyperlipidemia. HTN. Arthritis. Diabetes. Depression. Substance use. SURGICAL HISTORY : Appendectomy. Prostatectomy. Total knee replacement, right. Cataract surgery. Blood transfusions. ENCOUNTER: Initial ACUITY: 1 day PAIN SCORE: 0/10 LOCATION: Bilateral flank MEASUREMENTS: RIGHT KIDNEY: 9.9 X 5.3 X 4.4 cm LEFT KIDNEY: 10.2 x 5.0 x 5.2 cm FINDINGS: RIGHT KIDNEY: Renal cortex is normal in thickness and echotexture. No hydronephrosis or mass is seen. There are e chogenic foci seen in the renal collecting system likely are nonobstructing stones measuring up to 0. 8 cm. LEFT KIDNEY: Renal cortex is normal in thickness and echotexture. No hydronephrosis, stone, or mass. BLADDER: Within normal limits given the degree of distension. OTHER: There is a right pleural effusion and some ascites around the spleen. CONCLUSION: 1. Nonobstructing right renal stones. 2. Right pleural effusion. 3. Mild ascites around the spleen. Duncan Latif MD on September 24, 2016 at 12:09 Board Certified Radiologist. This report was verified electronically.
--- NOTE | 2016-09-24 12:39 | PD.CONS ---
HPI Service Nephrology Consult Requested By Reason for Consult Acute renal failure Primary Care Physician Non-Staff History of Present Illness This is an 86 y/o senior care resident. He was admitted for leukocytosis, had percutaneous GB tube placed on 09/21. His creatinine was 1.3 on arrival, incrased to 2.2, but has improved to 2.03. He has had decreased urien output but it has improved over the past day. His weight is up 8 kg, his IVF of 0.9% NS has been reduced to 42 cc/hr. He was given one dose of Bumex and one dose of Lasix. He has a adan catheter. PMH of CHD, EF 25-30%, A fib, HTN. He is a full code, we were consulted for renal management. today he is awake, but very confused. He did not know he was in the hospital. (Renetta Engle) Review of Systems Constitutional: COMPLAINS OF: Fatigue, DENIES: Fever (Renetta Engle) Past Family Social History Allergies: Coded Allergies: Cephalexin (Verified Allergy, Unknown, 09/21/16) Plavix (Verified Allergy, Unknown, 09/21/16) Past Medical History HTN A fib CHF, ef 25-30% previous CVA prostate CA s/p prostatectomy dementia hx of NSTEMI Past Surgical History he cannot list surgeries, but he did have prostatectomy Reported Medications Coreg (Carvedilol) 6.25 Mg Tab 6.25 Mg PO BID Eliquis (Apixaban) 2.5 Mg Tab 2.5 Mg PO DAILY Potassium Citrate ER 1,080 Mg Tab 1,080 PO BID Protonix (Pantoprazole Sodium) 40 Mg Tab 40 Mg PO DAILY Procardia (Nifedipine) 10 Mg Cap 30 Mg PO BID Nasonex Nasal Vernon (Mometasone Furoate) 50 Mcg/Act Naspr 2 Vernon EACH NARE DAILY Metformin ER (Metformin HCl) 500 Mg [place] 500 Mg PO BIDPC With evening meal Namenda (Memantine) 10 Mg Tab 10 Mg PO BID Lisinopril-Hctz 20-25 Mg Tab 1 Tab PO DAILY Aricept (Donepezil) 10 Mg Tab 10 Mg PO HS Lasix (Furosemide) 20 Mg Tab 20 Mg PO DAILY Flexeril (Cyclobenzaprine HCl) 10 Mg Tab 10 Mg PO QHS Clonidine (Clonidine HCl) 0.2 Mg Tab 0.2 Mg PO DAILY Axona (Dietary Management Product) 1 Pow Pow 1 Citalopram (Citalopram Hydrobromide) 20 Mg Tab 20 Mg PO DAILY Atorvastatin (Atorvastatin Calcium) 20 Mg Tab 20 Mg PO HS Aspirin 81 Mg Tabdr 81 Mg PO DAILY Active Ordered Medications Current Medications Medications (Trade) Dose Ordered Sig/Ale Route Start Time Stop Time Status Last Admin (NS Flush) 2 ml UNSCH PRN IV FLUSH 09/21/16 06:15 (NS Flush) 2 ml BID IV FLUSH 09/21/16 09:00 09/24/16 08:36 (Tylenol) 650 mg Q6H PRN PO 09/21/16 06:15 09/23/16 20:19 (Protonix Inj) 40 mg DAILY IV 09/21/16 09:00 Miscellaneous Information 1 Q361D XX 09/21/16 06:15 09/21/16 06:15 (Chlorhexidine 2% Cloth) 3 pack Taper DAILY@04 TOP 09/22/16 04:00 09/18/17 03:59 09/24/16 03:27 (Chlorhexidine 2% Cloth) 3 pack UNSCH PRN TOP 09/21/16 06:15 (D50w (Vial) Inj) 25 ml UNSCH PRN IV PUSH 09/21/16 06:15 Glucagon 1 mg 1 mg UNSCH PRN OTHER 09/21/16 06:15 Potassium Chloride 100 ml @ 50 mls/hr Q2H PRN IV 09/21/16 06:15 Hold Potassium Chloride 100 ml @ 50 mls/hr Q2H PRN IV 09/21/16 06:15 Hold Potassium Chloride 100 ml @ 25 mls/hr UNSCH PRN IV 09/21/16 06:09 Hold Potassium Chloride 100 ml @ 50 mls/hr Q2H PRN IV 09/21/16 06:09 Hold (Magnesium Sulfate Inj/NS Inj) 100 ml @ 50 mls/hr UNSCH PRN IV 09/21/16 06:09 Hold Magnesium Oxide 800 mg 800 mg UNSCH PRN PO 09/21/16 06:09 Hold (Magnesium Sulfate Inj/NS Inj) 100 ml @ 50 mls/hr UNSCH PRN IV 09/21/16 06:09 Hold Potassium Phosphate 2000 mg 2,000 mg Q4H PRN PO 09/21/16 06:09 Hold (Sodium Phosphate Inj/NS 250 ml Inj) 250 ml @ 42 mls/hr UNSCH PRN IV 09/21/16 06:09 Hold (KCl Powder) 40 meq UNSCH PRN PO 09/21/16 06:45 Hold Potassium Phosphate 2000 mg 2,000 mg UNSCH PRN PO/TUBE 09/21/16 06:09 Hold Potassium Phosphate 30 mmol/ Sodium Chloride 260 ml @ 42 mls/hr UNSCH PRN IV 09/21/16 06:09 Hold (Cipro 400 Mg Premix) 200 ml @ 200 mls/hr Q12H IV 09/21/16 18:00 09/24/16 05:06 (Lipitor) 20 mg HS PO 09/21/16 21:00 09/23/16 20:19 (Coreg) 6.25 mg BID PO 09/21/16 09:00 09/24/16 08:35 (CeleXA) 20 mg DAILY PO 09/21/16 09:00 09/24/16 08:35 (Aricept) 10 mg HS PO 09/21/16 21:00 09/23/16 20:19 (Namenda) 10 mg BID PO 09/21/16 09:00 09/24/16 08:35 (Flonase Abdoul Spr) 2 spray DAILY EACH NARE 09/21/16 09:00 09/24/16 08:36 (Protonix) 40 mg DAILY PO 09/21/16 09:00 09/24/16 08:35 (Nitroglycerin 2% Oint) 1 inch Q6H TOPICAL 09/21/16 20:00 09/24/16 08:35 (NovoLOG SUPPLEMENTAL SCALE) 1 ACHS SQ 09/22/16 16:00 09/23/16 20:18 (Tylenol) 650 mg Q6H PRN PO 09/22/16 16:00 ([place] 5-325 Mg) 1 tab Q4H PRN PO 09/22/16 16:00 (Morphine Inj) 2 mg Q2H PRN IV 09/22/16 16:00 (Zofran Inj) 4 mg Q6H PRN IV 09/22/16 16:00 (Colace) 100 mg BID PO 09/22/16 21:00 (Senokot) 17.2 mg Q12H PRN PO 09/22/16 16:00 (Lopressor) 25 mg Q12HR PO 09/23/16 09:00 09/24/16 08:35 Heparin Sodium (Porcine) 5000 units 5,000 units Q12HR SQ 09/23/16 09:00 09/24/16 08:37 Aztreonam 500 mg/ Sodium Chloride 100 ml @ 200 mls/hr Q8H IV 09/23/16 11:00 09/24/16 09:49 (NS 1000 ml Inj) 1,000 ml @ 42 mls/hr [id number] IV 09/24/16 09:00 09/24/16 09:09 (Ecotrin Ec) 325 mg DAILY PO 09/24/16 09:15 09/24/16 09:49 Family History no hx of renal disorders Social History Resides in senior care full code no smoking or ETOH (Renetta Engle) Physical Exam Vital Signs Vital Signs Date Time Temp Pulse Resp B/P Pulse Ox O2 Delivery O2 Flow Rate FiO2 09/24/16 10:00 90 09/24/16 09:30 97 Nasal Cannula 2.00 09/24/16 08:00 98.4 86 21 155/85 97 09/24/16 08:00 86 09/24/16 07:00 95 Nasal Cannula 2.00 09/24/16 06:00 80 09/24/16 04:00 98.4 74 19 158/70 97 09/24/16 04:00 74 09/24/16 02:00 70 09/24/16 00:00 70 09/24/16 00:00 98.3 70 20 133/83 94 09/23/16 22:00 62 09/23/16 20:00 98.3 84 23 165/79 97 09/23/16 20:00 84 09/23/16 20:00 98 Nasal Cannula 2.00 09/23/16 19:00 96 Nasal Cannula 2.00 09/23/16 18:00 85 09/23/16 16:00 98.8 78 26 162/76 97 09/23/16 16:00 84 09/23/16 14:00 84 Physical Exam elderly male, awake in bed, oriented to self no neuro deficit lungs clear in all figueroa S1/S2, 1/6 systolic murmur abdomen hyperactive ext: 1-2+ edema Laboratory Laboratory Tests Test 09/24/16 03:25 White Blood Count 7.5 Red Blood Count 2.68 Hemoglobin 7.9 Hematocrit 23.4 Mean Corpuscular Volume 87.6 Mean Corpuscular Hemoglobin 29.4 Mean Corpuscular Hemoglobin 33.6 Concent Red Cell Distribution Width 14.1 Platelet Count 184 Mean Platelet Volume 7.3 Neutrophils (%) (Auto) 81.7 Lymphocytes (%) (Auto) 9.6 Monocytes (%) (Auto) 7.3 Eosinophils (%) (Auto) 1.2 Basophils (%) (Auto) 0.2 Neutrophils # (Auto) 6.1 Lymphocytes # (Auto) 0.7 Monocytes # (Auto) 0.5 Eosinophils # (Auto) 0.1 Basophils # (Auto) 0.0 CBC Comment DIFF FINAL Differential Comment Sodium Level 141 Potassium Level 3.2 Chloride Level 106 Carbon Dioxide Level 24.8 Anion Gap 10 Blood Urea Nitrogen 44 Creatinine 2.03 Estimat Glomerular Filtration 31 Rate Random Glucose 132 Calcium Level 7.8 Date/Time Procedure Status Source Growth 09/21/16 02:55 Urine Culture - Final Complete Urine Catheterized Urine Escherichia Coli 09/21/16 02:55 Influenza Types A,B Antigen (ANUJA) - Final Complete Nasal Washing NEGATIVE FOR FLU A AND B ANTIGEN.... 09/21/16 02:40 Aerobic Blood Culture - Preliminary Resulted Blood Peripheral NO GROWTH IN 3 DAYS 09/21/16 02:40 Anaerobic Blood Culture - Preliminary Resulted Blood Peripheral NO GROWTH IN 3 DAYS (Rneetta Engle) Result Diagram: 09/24/16 0325 09/24/16 0325 Imaging Last 72 hours Impressions Chest X-Ray 09/23/16 0600 Signed Impressions: Service Date/Time: Friday, September 23, 2016 03:51 - CONCLUSION: Increasing infiltrates in the right lung and persistent left lower lung consolidation. Morgan Venegas MD (Renetta Engle) Assessment and Plan Problem List: (1) FLOR (acute kidney injury) Plan: his renal function is improving FLOR thought to be due to sepsis, decreased renal perfusion urine output has improved, continue to monitor being treated for UTI at this time he is on gentle fluids continue cautiously as EF 25-30% may need to be diuresed in upcoming days, follow fluid status replace potassium avoid nephrotoxins daily renal panel (2) Sepsis Plan: on aztreonam, also on cipro blood culture reviewed, may be contaminant (3) UTI (urinary tract infection) Plan: antibiotics as above (4) Cholecystitis Plan: s/p percutaneous drain placement (Renetta Engle) Assessment and Plan patient was seen and examined. FLOR could be due to sepsis induced ATN. Monitor urine output and renal function. Avoid nephrotoxic agents. Taper off fluids, and may need diuresis. (Matti Whitmore MD) Problem Qualifiers (1) Sepsis: Qualified Code: A41.9 - Sepsis, due to unspecified organism (2) UTI (urinary tract infection): Qualified Code: N39.0 - Urinary tract infection with hematuria, site unspecified Renetta Engle Sep 24, 2016 12:38 Matti Whitmore MD Sep 24, 2016 21:13
[2016-09-24 15:46] LABS: C. DIFF EPI 027 PRESUMPTIVE NEGATIVE (NEGATIVE); C. DIFF TOXIN PCR NEGATIVE (NEGATIVE)
[2016-09-24] MEDS ORDERED: FUROSEMIDE 20 MG/2 ML VIAL IV PUSH ONE (18:30)
[2016-09-24] MEDS ORDERED: SODIUM CHLOR 0.9% 250 ML INJ 250 ML IV ONE (18:30)
--- NOTE | 2016-09-24 18:56 | HHI.PR ---
Objective Objective Results - Vital Signs Date Time Temp Pulse Resp B/P Pulse Ox O2 Delivery O2 Flow Rate FiO2 09/24/16 18:00 91 09/24/16 16:00 98.2 80 25 165/80 98 09/24/16 16:00 80 09/24/16 14:00 78 09/24/16 12:00 98.9 95 22 152/95 98 09/24/16 12:00 78 09/24/16 10:00 90 09/24/16 09:30 97 Nasal Cannula 2.00 09/24/16 08:00 98.4 86 21 155/85 97 09/24/16 08:00 86 09/24/16 07:00 95 Nasal Cannula 2.00 09/24/16 06:00 80 09/24/16 04:00 98.4 74 19 158/70 97 09/24/16 04:00 74 09/24/16 02:00 70 09/24/16 00:00 70 09/24/16 00:00 98.3 70 20 133/83 94 09/23/16 22:00 62 09/23/16 20:00 98.3 84 23 165/79 97 09/23/16 20:00 84 09/23/16 20:00 98 Nasal Cannula 2.00 09/23/16 19:00 96 Nasal Cannula 2.00 I/O 09/23/16 09/23/16 09/23/16 09/24/16 09/24/16 09/24/16 07:00 15:00 23:00 07:00 15:00 23:00 Intake Total 817 ml 1827 ml 1101 ml 1088 ml 1271 ml Output Total 150 ml 250 ml 275 ml 320 ml 695 ml Balance 667 ml 1577 ml 826 ml 768 ml 576 ml Intake Oral 90 ml 700 ml 200 ml 80 ml 400 ml IV Total 727 ml 1127 ml 901 ml 1008 ml 871 ml Output Urine Total 150 ml 250 ml 275 ml 300 ml 675 ml Drainage Total 0 ml 0 ml 0 ml 20 ml 20 ml # Bowel Movements 0 1 1 1 4 Result Diagram: 09/24/16 0325 09/24/16 0325 Other Results Laboratory Tests Test 09/24/16 09/24/16 03:25 13:00 White Blood Count 7.5 Red Blood Count 2.68 Hemoglobin 7.9 Hematocrit 23.4 Mean Corpuscular Volume 87.6 Mean Corpuscular Hemoglobin 29.4 Mean Corpuscular Hemoglobin 33.6 Concent Red Cell Distribution Width 14.1 Platelet Count 184 Mean Platelet Volume 7.3 Neutrophils (%) (Auto) 81.7 Lymphocytes (%) (Auto) 9.6 Monocytes (%) (Auto) 7.3 Eosinophils (%) (Auto) 1.2 Basophils (%) (Auto) 0.2 Neutrophils # (Auto) 6.1 Lymphocytes # (Auto) 0.7 Monocytes # (Auto) 0.5 Eosinophils # (Auto) 0.1 Basophils # (Auto) 0.0 CBC Comment DIFF FINAL Differential Comment Sodium Level 141 Potassium Level 3.2 Chloride Level 106 Carbon Dioxide Level 24.8 Anion Gap 10 Blood Urea Nitrogen 44 Creatinine 2.03 Estimat Glomerular Filtration 31 Rate Random Glucose 132 Calcium Level 7.8 Stool C. difficile Toxin (PCR) NEGATIVE Stl C. difficile Toxin PRESUMPTIVE Epiderm 027 NEGATIVE Date/Time Procedure Status Source Growth 09/24/16 13:00 Stool Occult Blood (ANUJA) Received Stool Stool Pending 09/21/16 02:55 Urine Culture - Final Complete Urine Catheterized Urine Escherichia Coli 09/21/16 02:55 Influenza Types A,B Antigen (ANUJA) - Final Complete Nasal Washing NEGATIVE FOR FLU A AND B ANTIGEN.... 09/21/16 02:40 Aerobic Blood Culture - Preliminary Resulted Blood Peripheral NO GROWTH IN 3 DAYS 09/21/16 02:40 Anaerobic Blood Culture - Preliminary Resulted Blood Peripheral NO GROWTH IN 3 DAYS Physical Exam Physical Exam pt is seen & Examined d/w PT [forgetful] d/w RN d/w yuly s/p possible sepsis Pneumonia /UTI acute cholecystitis s/p Percutaneous Cholecystostomy s/p NSTEMI Hx CM Anemia , acute blood loss ARF , pre renal azotemia Dementia advance age see Orders will f/u Ashly Borrego MD Sep 24, 2016 18:56
[2016-09-24 18:57] LABS: RETIC % 1.1 % (0.4-3.0); REVIEW FLAG FINAL
--- NOTE | 2016-09-24 19:26 | PD.CONS ---
[facility] Service [facility] Hospitalists Consult Requested By Primary Care Physician Non-Staff Diagnoses: History of Present Illness dictated, [id number] Past Family Social History Allergies: Coded Allergies: Cephalexin (Verified Allergy, Unknown, 09/21/16) Plavix (Verified Allergy, Unknown, 09/21/16) Physical Exam Vital Signs Vital Signs Date Time Temp Pulse Resp B/P Pulse Ox O2 Delivery O2 Flow Rate FiO2 09/24/16 18:00 91 09/24/16 16:00 98.2 80 25 165/80 98 09/24/16 16:00 80 09/24/16 14:00 78 09/24/16 12:00 98.9 95 22 152/95 98 09/24/16 12:00 78 09/24/16 10:00 90 09/24/16 09:30 97 Nasal Cannula 2.00 09/24/16 08:00 98.4 86 21 155/85 97 09/24/16 08:00 86 09/24/16 07:00 95 Nasal Cannula 2.00 09/24/16 06:00 80 09/24/16 04:00 98.4 74 19 158/70 97 09/24/16 04:00 74 09/24/16 02:00 70 09/24/16 00:00 70 09/24/16 00:00 98.3 70 20 133/83 94 09/23/16 22:00 62 09/23/16 20:00 98.3 84 23 165/79 97 09/23/16 20:00 84 09/23/16 20:00 98 Nasal Cannula 2.00 Laboratory Laboratory Tests Test 09/24/16 09/24/16 03:25 13:00 White Blood Count 7.5 Red Blood Count 2.68 Hemoglobin 7.9 Hematocrit 23.4 Mean Corpuscular Volume 87.6 Mean Corpuscular Hemoglobin 29.4 Mean Corpuscular Hemoglobin 33.6 Concent Red Cell Distribution Width 14.1 Platelet Count 184 Mean Platelet Volume 7.3 Neutrophils (%) (Auto) 81.7 Lymphocytes (%) (Auto) 9.6 Monocytes (%) (Auto) 7.3 Eosinophils (%) (Auto) 1.2 Basophils (%) (Auto) 0.2 Neutrophils # (Auto) 6.1 Lymphocytes # (Auto) 0.7 Monocytes # (Auto) 0.5 Eosinophils # (Auto) 0.1 Basophils # (Auto) 0.0 CBC Comment DIFF FINAL Differential Comment Reticulocyte Count 1.1 Absolute Reticulocyte Count 27.9 Sodium Level 141 Potassium Level 3.2 Chloride Level 106 Carbon Dioxide Level 24.8 Anion Gap 10 Blood Urea Nitrogen 44 Creatinine 2.03 Estimat Glomerular Filtration 31 Rate Random Glucose 132 Calcium Level 7.8 Stool C. difficile Toxin (PCR) NEGATIVE Stl C. difficile Toxin PRESUMPTIVE Epiderm 027 NEGATIVE Date/Time Procedure Status Source Growth 09/24/16 13:00 Stool Occult Blood (ANUJA) Received Stool Stool Pending 09/21/16 02:55 Urine Culture - Final Complete Urine Catheterized Urine Escherichia Coli 09/21/16 02:55 Influenza Types A,B Antigen (ANUJA) - Final Complete Nasal Washing NEGATIVE FOR FLU A AND B ANTIGEN.... 09/21/16 02:40 Aerobic Blood Culture - Preliminary Resulted Blood Peripheral NO GROWTH IN 3 DAYS 09/21/16 02:40 Anaerobic Blood Culture - Preliminary Resulted Blood Peripheral NO GROWTH IN 3 DAYS Result Diagram: 09/24/16 0325 09/24/16 0325 Rocío Silverman Sep 24, 2016 19:26
[2016-09-24] MEDS: DONEPEZIL HCL 5 MG TAB PO SCH (20:58)
[2016-09-24] MEDS: ATORVASTATIN 20 MG TAB PO SCH (20:58)
[2016-09-24 21:09] LABS: FERRITIN 223 NG/ML (26-388); TRANSFERRIN IRON PROFILE 144 MG/DL (200-360)
[2016-09-24 22:18] LABS: C. DIFF EPI 027 PRESUMPTIVE NEGATIVE (NEGATIVE); C. DIFF TOXIN PCR NEGATIVE (NEGATIVE)
[2016-09-24 22:32] LABS: HEMATOCRIT 25.6 % (39.0-51.0); REVIEW FLAG FINAL
[2016-09-24 22:50] LABS: INTERNATIONAL NORMALIZED RATIO 1.1 RATIO; PROTHROMBIN TIME - PATIENT 11.7 SEC (9.8-11.6)
[2016-09-25] VITALS (17 sets, daily range): BP systolic 87–170; BP diastolic 32–87; PULSE 58–88; RESP 12–23; TEMP 97–98.8; O2SAT 93–100
[2016-09-25] MEDS ORDERED: POTASSIUM CHLORIDE 20 MEQ CONTROLLED RELEASE TAB PO ONE (00:15)
[2016-09-25] MEDS: POTASSIUM CHLORIDE INJ 10 MEQ in SODIUM CHLOR 0.9% 1000 ML INJ 1,000 ML IV SCH (01:01)
[2016-09-25] MEDS: AZTREONAM INJ 500 MG in SODIUM CHLORIDE 0.9% INJ 100 ML IV SCH ×3 (02:09→18:03)
[2016-09-25] MEDS: NITROGLYCERIN 2% OINT 1 GM PACKET TOPICAL SCH ×4 (02:10→20:49)
[2016-09-25] MEDS: CHLORHEXIDINE GLUCONATE 2 % 1 PACK (2 CLOTHS) TOP SCH (04:00)
[2016-09-25 04:08] LABS: HEMATOCRIT 24.6 % (39.0-51.0); MEAN CORPUSCULAR HEMOGLOBIN 29.2 PG (27.0-34.0); MEAN CORPUSCULAR HGB CONC 33.2 % (32.0-36.0); PLATELET COUNT 208 TH/MM3 (150-450); RED BLOOD COUNT 2.79 MIL/MM3 (4.50-5.90); RED CELL DISTRIBUTION WIDTH 14.2 % (11.6-17.2); REVIEW FLAG FINAL
[2016-09-25 04:32] LABS: BICARBONATE 24.6 MEQ/L (21.0-32.0); POTASSIUM 3.4 MEQ/L (3.5-5.1)
[2016-09-25] MEDS: CIPROFLOXACIN 400 MG PREMIX 200 ML IV SCH ×2 (05:37→18:03)
[2016-09-25] MEDS: INSULIN ASPART SUPPLEMENTAL SCALE SQ SCH ×4 (06:19→20:51)
[2016-09-25] MEDS: METOPROLOL TARTRATE 25 MG TAB PO SCH ×2 (08:05→20:49)
[2016-09-25] MEDS: PANTOPRAZOLE SOD 40 MG DELAYED RELEASE TAB PO SCH (08:05)
[2016-09-25] MEDS: CITALOPRAM HYDROBROMIDE 20 MG TAB PO SCH (08:05)
[2016-09-25] MEDS: CARVEDILOL 6.25 MG TAB PO SCH ×2 (08:05→20:50)
[2016-09-25] MEDS: MEMANTINE HCL 10 MG TAB PO SCH ×2 (08:05→20:52)
[2016-09-25] MEDS: SODIUM CHLORIDE 0.9% FLUSH 5 ML FLUSH IV FLUSH SCH ×2 (08:07→20:52)
[2016-09-25] MEDS: PANTOPRAZOLE SODIUM 40 MG VIAL IV SCH (08:07)
[2016-09-25] MEDS: DOCUSATE SODIUM 100 MG CAP PO SCH ×3 (08:07→20:54)
[2016-09-25] MEDS: FLUTICASONE PROPIONATE 50 MCG/ACT 16 GM NASAL SPRAY EACH NARE SCH (08:07)
--- NOTE | 2016-09-25 08:46 | MB ---
cc: ALEJA BORREGO MD DATE OF 1930 DATE OF ADMISSION 09/21/2016 DATE OF CONSULTATION 09/24/2016 REASON FOR CONSULTATION Medical management. HISTORY OF PRESENT ILLNESS This is a pleasant 86-year-old white male who came in on the with abdominal pain. The patient was complaining predominantly of right upper quadrant pain and according to the records CT findings showed cholecystitis. The patient also was noted to have large bilateral pleural effusions, elevated troponin levels and chronic heart failure. The patient has seen multiple consults during this admission which include Nephrology, General Surgery and Interventional Radiology Department. The patient has also a probable diagnosis of sepsis. The patient has had a G-tube placed within the last couple of days which is currently draining bright blood-colored fluid. Originally on admission the patient's hemoglobin was 10.1; it has been checked daily and it continues to decline slowly from 9.3 to 8.4 and now 7.9. According to the nurse, the bright red drainage from the G-tube has been predominantly there for the last 24 hours. The patient is pleasantly confused. He does appear to answer questions but at times it will be thinking that he is someone else and driving a car. He is a poor historian. Most of the medical information that I am gathering is from the record except for the simple questions of yes or no symptoms that I have asked the patient. He currently says he is having no chest pain. He is short of breath at rest with low volumes but denies any nausea or vomiting. He does have some chronic low back pain. MEDICAL HISTORY 1. Positive for stroke. 2. Dementia. 3. Diabetes on oral hypoglycemics. 4. Major depressive disorder. SURGICAL HISTORY Unknown. ALLERGIES PLAVIX. CEPHALEXIN. MEDICATIONS REPORTED See record. REVIEW OF SYSTEMS Unable to obtain secondary to the patient's pleasant altered mental status. PHYSICAL EXAMINATION VITAL SIGNS: Temperature is 98.2, pulse 80-95, respirations 25, blood pressure 165/80, O2 sat 98 on O2 at 2 liters. SKIN: Pale, warm and dry. GENERAL: Obese white male. Looks to be his stated age. Resting in the bed. Conversational, but a poor historian. HEENT: Atraumatic, normocephalic. PERRLA at 2. Pale mucous membranes. No exudate. NECK: Supple. HEART SOUNDS: S1-S2. Regular rate and rhythm. He has no edema in his pulses are intact. LUNGS: Low breath volumes and decreased breath sounds posteriorly. Anteriorly no rhonchi. ABDOMEN: Obese, round, soft. No tenderness to light palpation. He does have a G-tube in his right upper quadrant draining red bloody fluid. MUSCULOSKELETAL: He can move his extremities with purpose, upper extremities much stronger than lower extremities. NEUROLOGICALLY: Alert. Poor historian. PSYCHIATRIC: Appropriate mood and affect. DIAGNOSTIC DATA On 09/24/2016 - white count 7.5, RBC 2.68, hemoglobin 7.9, hematocrit 23.4, neutrophil count 81.7, platelet count 184. Coagulation studies: PTT 77.4. Chemistry: Potassium 3.2, chloride 106, carbon dioxide 24.8, amnion gap 10, BUN 44, creatinine 2.03, random glucose 132, calcium 7.8. Negative C-diff toxin. Dilantin level 0.8. ASSESSMENT AND PLAN 1. Possible sepsis. 2. UTI. 3. Cholecystitis. 4. Acute kidney injury. 5. Hypokalemia. 6. Anemia We are going to recheck his hemoglobin at 9 o'clock tonight. If hemoglobin continues to trend down we will consider blood transfusion. The patient is going for a procedure in the morning to readjust his G-tube. If the patient needs blood, he needs to receive it before he goes down for that procedure. The patient has a Macias catheter in. We will monitor vital signs and lab work as warranted. The patient will get a hemoccult of his stool. IV Lasix 20 mg x 1 for a shortness of breath and pleural effusions. He will be n.p.o. at after midnight for his procedure. As stated, Nephrology has been consulted for their expert opinion. The patient is on subcu heparin for DVT prophylaxis. The patient is also on aspirin, IV antibiotics, p.o. Lopressor, insulin sliding scale, pain management, bowel management, IV Cipro, IV Protonix for PUD prophylaxis. We will monitor for any other medical needs. Dictated by: MARLON Forrest MD CHANG Tierney/EVAN /6:16 PM /7:44 AM pt is seen & Examined d/w PT [forgetful] d/w RN d/w yuly s/p possible sepsis Pneumonia /UTI acute cholecystitis s/p Percutaneous Cholecystostomy s/p NSTEMI Hx CM Anemia , acute blood loss ARF , pre renal azotemia Dementia advance age see Orders will f/u Aleja Borrego MD Sep 24, 2016 18:56 MTDD
[2016-09-25] MEDS: HEPARIN SODIUM - SQ 10,000 UNITS/ML VIAL SQ SCH ×2 (09:25→20:50)
[2016-09-25] MEDS: ASPIRIN EC 325 MG TABEC PO SCH (09:25)
[2016-09-25] MEDS ORDERED: fentaNYL CITRATE 250 MCG/5 ML AMP ONE (15:13)
[2016-09-25] MEDS ORDERED: MIDAZOLAM HCL 5 MG/5 ML VIAL ONE (15:13)
--- NOTE | 2016-09-25 15:54 | HHI.NPPN ---
Subjective General Problems: Anemia, Edema Renal Failure: Chronic, Acute, Stage III Interval History Renal function is better. He is NPO for procedure today, his G tube has been bleeding. He is anemic. (Renetta Engle) Review of Systems General Constitutional: Fatigue (Renetta Engle) Objective Data Data 09/24/16 09/25/16 19:00 07:00 Intake Total 1271 ml 923 ml Output Total 695 ml 725 ml Balance 576 ml 198 ml Intake Oral 400 ml 60 ml IV Total 871 ml 863 ml Output Urine Total 675 ml 700 ml Drainage Total 20 ml 25 ml # Bowel Movements 4 0 Vital Signs Date Time Temp Pulse Resp B/P Pulse Ox O2 Delivery O2 Flow Rate FiO2 09/25/16 13:00 98.1 86 23 126/78 99 09/25/16 12:45 Nasal Cannula 3.00 09/25/16 12:11 98 Nasal Cannula 2.00 09/25/16 12:00 98.4 69 21 143/67 100 09/25/16 12:00 69 09/25/16 10:00 65 09/25/16 08:00 71 09/25/16 08:00 98.3 71 14 149/76 100 09/25/16 07:00 100 Nasal Cannula 2.00 09/25/16 06:00 87 09/25/16 04:00 98.6 62 12 125/65 100 09/25/16 04:00 62 09/25/16 02:00 58 09/25/16 00:00 98.8 71 22 87/55 99 09/25/16 00:00 71 09/24/16 22:00 62 09/24/16 20:44 97 Nasal Cannula 3.00 09/24/16 20:00 85 09/24/16 20:00 98.4 85 22 166/84 99 09/24/16 19:00 96 Nasal Cannula 2.00 09/24/16 18:00 91 09/24/16 16:00 98.2 80 25 165/80 98 09/24/16 16:00 80 (Renetta Engle) -: 09/25/16 0320 09/25/16 0320 Imaging Last 72 hours Impressions Renal Ultrasound 09/24/16 0000 Signed Impressions: Service Date/Time: Saturday, September 24, 2016 10:09 - CONCLUSION: 1. Nonobstructing right renal stones. 2. Right pleural effusion. 3. Mild ascites around the spleen. Duncan Latif MD Chest X-Ray 09/23/16 0600 Signed Impressions: Service Date/Time: Friday, September 23, 2016 03:51 - CONCLUSION: Increasing infiltrates in the right lung and persistent left lower lung consolidation. Morgan Venegas MD (Kadie,Renetta B. TRUSS BUILDER) Physical Exam General Appearance: Well Developed, Well Nourished, No Acute Distress (Kadie,Renetta B. TRUSS BUILDER) Throat Throat Exam: Oral Mucosa [place] & Moist (Kadie,Renetta B. TRUSS BUILDER) Pulmonary Resp Exam: Clear Bilaterally, Breath Sounds Equal (Kadie,Renetta B. TRUSS BUILDER) Cardiology CV Exam: Regular, Good Perfusion (Kadie,Renetta B. TRUSS BUILDER) Gastrointestinal/Abdomen GI Exam: Soft, Non-Tender GI Remarks + PEG (Kadie,Renetta B. TRUSS BUILDER) Genitourinary Exam: Clear Urine (KadieRenetta B. TRUSS BUILDER) Musculoskeletal MS Exam: Joints Intact, Normal Tone (Kadie,Renetta B. TRUSS BUILDER) Integumentary Skin Exam: Warm, Dry (Kadie,Renetta B. TRUSS BUILDER) Extremeties Extremities Exam: Pedal Pulses Palpable, Moderate Edema (Kadie,Renetta B. TRUSS BUILDER) Neurologic Neuro Exam: Alert, Awake, Oriented, Speech Clear, Moving All Extremities ( Kadie,Renetta B. TRUSS BUILDER) Psychiatric Psych Exam: Appropriate Responses (KadieRenetta B. TRUSS BUILDER) Assessment/Plan Discussed Condition With: Patient, Spouse Assessment Summary: FLOR/Acute Renal Failure, CKD Stage III Electrolyte Assessment: Hypokalemia Problem List: (1) FLOR (acute kidney injury) Plan: his renal function is improving FLOR thought to be due to sepsis, decreased renal perfusion urine output is adequate, continue to monitor renal function is better continue IVF as he is NPO, then stop when diet advances continue cautiously as EF 25-30% continue treatment for UTI renal US: non obstructing right renal stones replace potassium avoid nephrotoxins daily renal panel (2) Sepsis Plan: on aztreonam, also on cipro blood culture reviewed, may be contaminant (3) UTI (urinary tract infection) Plan: antibiotics as above (4) Cholecystitis Plan: s/p percutaneous drain placement (Renetta Engle) Problem List: (1) FLOR (acute kidney injury) Plan: his renal function is improving FLOR thought to be due to sepsis, decreased renal perfusion urine output is adequate, continue to monitor renal function is better continue IVF as he is NPO, then stop when diet advances continue cautiously as EF 25-30% continue treatment for UTI renal US: non obstructing right renal stones replace potassium avoid nephrotoxins daily renal panel (2) Sepsis Plan: on aztreonam, also on cipro blood culture reviewed, may be contaminant (3) UTI (urinary tract infection) Plan: antibiotics as above (4) Cholecystitis Plan: s/p percutaneous drain placement Plan patient was seen and examined. Agree with above assessment and plan. (Matti Whitmore MD) Problem Qualifiers (1) Sepsis: Qualified Code: A41.9 - Sepsis, due to unspecified organism (2) UTI (urinary tract infection): Qualified Code: N39.0 - Urinary tract infection with hematuria, site unspecified Renetta Engle Sep 25, 2016 15:54 Matti Whitmore MD Sep 25, 2016 20:35
--- NOTE | 2016-09-25 16:29 | PD.RAD ---
Post Procedure Progress Note Pre Procedure Diagnosis: (1) Cholecystitis Post Procedure Diagnosis: (1) Cholecystitis Procedure Date: Sep 25, 2016 Supervising Radiologist: Morgan Salazar JR Proceduralist/Assist: Jose Tovar, RT(R), Allison Guadarrama RT(R)(CV) Anesthesia: Conscious Sedation Plan of Activity Patient to Unit: Critical Care Patient Condition: Good See PACS Report for procedural detail/treatment Drainage Procedure Procedure 1 Imaging Guidance: Fluoroscopy Procedure Type: Cholecystostomy Procedure: Exchange [place]: 8 Fluid Removal (CCs): 20 Findings: Original 7 F mitchell tube occluded. Replaced with 8 F. Approx 20 ml of dark fluid obtained. Injection along tract shows no traversal of a vascular structure to account for the hemobilia. Central Venous Access Device Procedure 1 Right Internal Jugular Central Line Placement triple lumen [place]: 7 Findings: CVL in good position. Functions well. OK to use Jr. Martin,Morgan Hagan MD Sep 25, 2016 16:29
[2016-09-25] MEDS ORDERED: SODIUM CHLORIDE 0.9% FLUSH 5 ML FLUSH IVF PRN (16:30)
[2016-09-25] MEDS ORDERED: IOHEXOL 350 MG/ML 50 ML BTL (for RAD DIAG) ONE (16:59)
--- NOTE | 2016-09-25 16:59 | HHI.PR ---
Subjective Remarks 86yr old male seen and examined today. s/p removal and insertion of a new mitchell tube. Requesting for food. No NVD/CP/SOB. Objective Objective Results - Vital Signs Date Time Temp Pulse Resp B/P Pulse Ox O2 Delivery O2 Flow Rate FiO2 09/25/16 13:00 98.1 86 23 126/78 99 09/25/16 12:45 Nasal Cannula 3.00 09/25/16 12:11 98 Nasal Cannula 2.00 09/25/16 12:00 98.4 69 21 143/67 100 09/25/16 12:00 69 09/25/16 10:00 65 09/25/16 08:00 71 09/25/16 08:00 98.3 71 14 149/76 100 09/25/16 07:00 100 Nasal Cannula 2.00 09/25/16 06:00 87 09/25/16 04:00 98.6 62 12 125/65 100 09/25/16 04:00 62 09/25/16 02:00 58 09/25/16 00:00 98.8 71 22 87/55 99 09/25/16 00:00 71 09/24/16 22:00 62 09/24/16 20:44 97 Nasal Cannula 3.00 09/24/16 20:00 85 09/24/16 20:00 98.4 85 22 166/84 99 09/24/16 19:00 96 Nasal Cannula 2.00 09/24/16 18:00 91 I/O 09/24/16 09/24/16 09/24/16 09/25/16 09/25/16 09/25/16 07:00 15:00 23:00 07:00 15:00 23:00 Intake Total 1088 ml 1271 ml 586 ml 337 ml 532 ml Output Total 320 ml 695 ml 475 ml 250 ml Balance 768 ml 576 ml 111 ml 87 ml 532 ml Intake Oral 80 ml 400 ml 60 ml 0 ml IV Total 1008 ml 871 ml 526 ml 337 ml 532 ml Output Urine Total 300 ml 675 ml 450 ml 250 ml Drainage Total 20 ml 20 ml 25 ml 0 ml # Bowel Movements 1 4 0 0 Result Diagram: 09/25/16 0320 09/25/16 0320 Other Results Laboratory Tests Test 09/24/16 09/24/16 09/24/16 09/24/16 19:47 20:00 20:27 21:22 Blood Type A POSITIVE Antibody Screen NEGATIVE Blood Bank Comment Stool C. difficile Toxin (PCR) NEGATIVE Stl C. difficile Toxin PRESUMPTIVE Epiderm 027 NEGATIVE Potassium Level 3.5 Hemoglobin 8.4 Hematocrit 25.6 Prothrombin Time 11.7 Prothromb Time International 1.1 Ratio Test 09/25/16 03:20 White Blood Count 6.0 Red Blood Count 2.79 Hemoglobin 8.2 Hematocrit 24.6 Mean Corpuscular Volume 88.0 Mean Corpuscular Hemoglobin 29.2 Mean Corpuscular Hemoglobin 33.2 Concent Red Cell Distribution Width 14.2 Platelet Count 208 Mean Platelet Volume 7.1 Sodium Level 145 Potassium Level 3.4 Chloride Level 109 Carbon Dioxide Level 24.6 Anion Gap 11 Blood Urea Nitrogen 38 Creatinine 1.68 Estimat Glomerular Filtration 39 Rate Random Glucose 105 Calcium Level 8.0 Date/Time Procedure Status Source Growth 09/24/16 13:00 Stool Occult Blood (ANUJA) - Final Complete Stool Stool HEMOCCULT NEGATIVE 09/21/16 02:55 Urine Culture - Final Complete Urine Catheterized Urine Escherichia Coli 09/21/16 02:55 Influenza Types A,B Antigen (ANUJA) - Final Complete Nasal Washing NEGATIVE FOR FLU A AND B ANTIGEN.... 09/21/16 02:40 Aerobic Blood Culture - Preliminary Resulted Blood Peripheral NO GROWTH IN 4 DAYS 09/21/16 02:40 Anaerobic Blood Culture - Preliminary Resulted Blood Peripheral NO GROWTH IN 4 DAYS ROS General: No: Fatigue, Weakness, Other HEENT: No: Sore Throat, Dysphagia, Other Cardiac: No: Chest Pain, Edema, Palpitations, Other Pulmonary: No: Cough, SOB, Wheezing, Other GI: Abdominal Pain /ENERGY DIRECTOR: No: Dysuria, Urgency, Other Neuro/MS: No: Lightheaded, Confusion, Other Psych: No: Anxiety, Depression, Other Skin: No: Itching, Rash, Other Physical Exam Physical Exam PHYSICAL EXAMINATION GENERAL: This is a well-developed, well-nourished male who appears to be in no acute distress. HEAD: Normocephalic without any lesion or mass noted. . EYES: Perrla, Normal eye movement, no icterus. OROPHARYNGEAL: Oropharynx without erythema or edema. MOUTH/THROAT: Buccal mucosa is moist. NECK: Supple. CARDIAC: Regular rhythm, regular rate, S1 and S2 are heard. LUNGS: Basilar rales. ABDOMEN: Cholecystostomy drain in right upper quadrant. No active bleeding. Surrounding ecchymoses. EXTREMITIES: No edema. Pulses equal bilateral. NEUROLOGICAL: Patient mood and affect appropriate. SKIN:Warm and moist PSYCH: Mood and affect appropriate A/P Assessment and Plan ASSESSMENT AND PLAN 1. Possible sepsis. 2. UTI. 3. acute cholecystitis s/p Percutaneous Cholecystostomy 4. Acute kidney injury, pre renal azotemia 5. Hypokalemia. 6. Acute blood loss Anemia 7. NSTEMI 8. Pneumonia 9. Dementia 10.advance age Plan: On IV Aztreonam/Cipro. Noted blood cultures: staph epidermidis prob contamination. heparin SQ for DVT prophylaxis. P.O. lopressor. Accucheks qac/hs. SSI Pain mgmt. PUD prophylaxis. Will start clear liquid diet and advance as tolerated. Am labs. Discussed with TING. Francisca Bingham MD Sep 25, 2016 16:59
[2016-09-25] MEDS: ATORVASTATIN 20 MG TAB PO SCH (20:50)
[2016-09-25] MEDS: DONEPEZIL HCL 5 MG TAB PO SCH (20:51)
[2016-09-25] MEDS: RESP: ALBUTEROL 2.5 MG/IPRATROPIUM 0.5 MG NEB (PRN) INH (22:45)
[2016-09-26] VITALS (9 sets, daily range): BP systolic 126–144; BP diastolic 60–84; PULSE 68–90; RESP 20–22; TEMP 97–98.9; O2SAT 94–100
[2016-09-26] MEDS: AZTREONAM INJ 500 MG in SODIUM CHLORIDE 0.9% INJ 100 ML IV SCH ×3 (03:11→18:08)
[2016-09-26] MEDS: NITROGLYCERIN 2% OINT 1 GM PACKET TOPICAL SCH ×4 (03:11→21:41)
[2016-09-26] MEDS: CHLORHEXIDINE GLUCONATE 2 % 1 PACK (2 CLOTHS) TOP SCH ×2 (03:54→23:19)
[2016-09-26 05:19] LABS: AUTOMATED NEUTROPHIL # 3.8 TH/MM3 (1.8-7.7); BASOPHIL % 0.8 % (0.0-2.0); EOSINOPHIL # 0.2 TH/MM3 (0-0.4); EOSINOPHIL % 4.3 % (0.0-4.0); HEMATOCRIT 23.8 % (39.0-51.0); HEMO FLAGS DIFF FINAL; LYMPH % 13.2 % (9.0-44.0); LYMPHOCYTE # 0.7 TH/MM3 (1.0-4.8); MEAN CELL VOLUME 87.3 FL (80.0-100.0); MEAN CORPUSCULAR HGB CONC 33.2 % (32.0-36.0); MONO % 9.8 % (0.0-8.0); NEUT % 71.9 % (16.0-70.0); PLATELET COUNT 212 TH/MM3 (150-450); RED BLOOD COUNT 2.72 MIL/MM3 (4.50-5.90); RED CELL DISTRIBUTION WIDTH 14.4 % (11.6-17.2); WHITE BLOOD COUNT 5.3 TH/MM3 (4.0-11.0)
[2016-09-26] MEDS: POTASSIUM CHLORIDE INJ 10 MEQ in SODIUM CHLOR 0.9% 1000 ML INJ 1,000 ML IV SCH (06:08)
[2016-09-26] MEDS: CIPROFLOXACIN 400 MG PREMIX 200 ML IV SCH ×2 (06:09→17:00)
[2016-09-26] MEDS: INSULIN ASPART SUPPLEMENTAL SCALE SQ SCH ×4 (06:10→21:36)
[2016-09-26] MEDS: PANTOPRAZOLE SODIUM 40 MG VIAL IV SCH (09:27)
[2016-09-26] MEDS: DOCUSATE SODIUM 100 MG CAP PO SCH ×2 (09:27→21:00)
[2016-09-26] MEDS: HEPARIN SODIUM - SQ 10,000 UNITS/ML VIAL SQ SCH ×2 (09:30→21:37)
[2016-09-26] MEDS: SODIUM CHLORIDE 0.9% FLUSH 5 ML FLUSH IVF SCH (09:31)
[2016-09-26] MEDS: METOPROLOL TARTRATE 25 MG TAB PO SCH (09:31)
[2016-09-26] MEDS: SODIUM CHLORIDE 0.9% FLUSH 5 ML FLUSH IV FLUSH SCH ×2 (09:31→21:35)
[2016-09-26] MEDS: CITALOPRAM HYDROBROMIDE 20 MG TAB PO SCH (09:31)
[2016-09-26] MEDS: MEMANTINE HCL 10 MG TAB PO SCH ×2 (09:31→22:08)
[2016-09-26] MEDS: PANTOPRAZOLE SOD 40 MG DELAYED RELEASE TAB PO SCH (09:31)
[2016-09-26] MEDS: ASPIRIN EC 325 MG TABEC PO SCH (09:31)
[2016-09-26] MEDS: CARVEDILOL 6.25 MG TAB PO SCH ×2 (09:31→21:40)
[2016-09-26] MEDS: FLUTICASONE PROPIONATE 50 MCG/ACT 16 GM NASAL SPRAY EACH NARE SCH (09:36)
--- NOTE | 2016-09-26 09:49 | RADRPT ---
EXAM DATE/TIME: 09/26/2016 08:40 [facility] COMPARISON: CT ABDOMEN & PELVIS W CONTRAST, September 21, 2016, 3:27. INDICATIONS : Follow up choleostomy tube. ORAL CONTRAST: No oral contrast ingested. RADIATION DOSE: 13.52 CTDIvol (mGy) MEDICAL HISTORY : Cardiovascular disease. Hypertension. Prostate ca. SURGICAL HISTORY : Appendectomy. Prostatectomy. Choleostomy tube ENCOUNTER: Initial ACUITY: 1 day PAIN SCALE: 1/10 LOCATION: Abdomen TECHNIQUE: Volumetric scanning of the abdomen was performed. Using automated exposure control and adjustment of the mA and/or kV according to patient size, radiation dose was kept as low as reasonably achievable to obtain optimal diagnostic quality images. FINDINGS: Patient has a cholecystostomy tube in place. There is increased density within the gallbladder. The re is a 2.5 cm hypodensity seen at the superior aspect of the right lobe of the liver. Liver appears otherwise unre markable. The spleen, pancreas, and adrenal glands are normal. There is central calcifications in the kidneys bila terally likely related to the arterial structures. There is atherosclerotic calcifications seen throughout the bear rial system. There is a moderate right pleural effusion and a mild left pleural effusion. There is accompanying areas o f atelectasis or consolidation at the posterior lower lobes being worse on the right. The visualized bowel appears un remarkable. There is edema seen in the superficial soft tissues. There is a mild amount of free fluid seen aroun d the liver and spleen in the peritoneal cavity. CONCLUSION: 1. Cholecystostomy tube in good position. 2. Moderate right pleural effusion and mild left effusion with accompanying areas of atelectasis and /or consolidation. 3. Mild ascites around the liver and spleen. Duncan Latif MD on September 26, 2016 at 9:12 Board Certified Radiologist. This report was verified electronically.
--- NOTE | 2016-09-26 10:44 | HHI.NPPN ---
Subjective General Problems: Anemia, Edema Renal Failure: Chronic, Acute, Stage III Interval History Sitting up in bed. His diet has advanced to clear liquids. Some edema persists. (Renetta Engle) Review of Systems General Constitutional: Fatigue (Renetta Engle) Musculoskeletal MS: Pain/Stiffness (Renetta Engle) Heme-Lymph Heme-Lymph: Bruising (Renetta Engle) Objective Data Data 09/25/16 09/26/16 19:00 07:00 Intake Total 532 ml 1662 ml Output Total 300 ml 760 ml Balance 232 ml 902 ml Intake Oral 820 ml IV Total 532 ml 842 ml Output Urine Total 300 ml 750 ml Drainage Total 10 ml # Bowel Movements 2 Vital Signs Date Time Temp Pulse Resp B/P Pulse Ox O2 Delivery O2 Flow Rate FiO2 09/26/16 08:17 99 Nasal Cannula 2.00 09/26/16 08:00 98.0 84 20 144/84 100 09/26/16 03:15 97.0 77 20 132/65 99 09/26/16 00:00 98.9 78 22 131/60 100 09/25/16 20:40 78 09/25/16 20:40 94 Nasal Cannula 2.00 09/25/16 20:10 97.0 68 16 170/87 94 09/25/16 20:00 97.0 88 20 99 09/25/16 19:50 95 Nasal Cannula 2.00 09/25/16 17:45 97.0 66 22 165/70 100 09/25/16 17:45 66 16 127/55 100 09/25/16 17:15 80 16 117/32 100 09/25/16 16:45 97.8 78 16 112/53 93 09/25/16 16:30 66 18 114/73 100 09/25/16 13:00 98.1 86 23 126/78 99 09/25/16 12:45 Nasal Cannula 3.00 09/25/16 12:11 98 Nasal Cannula 2.00 09/25/16 12:00 98.4 69 21 143/67 100 09/25/16 12:00 69 (Renetta Engle) -: 09/26/16 0500 09/25/16 0320 Imaging Last 72 hours Impressions Renal Ultrasound 09/24/16 0000 Signed Impressions: Service Date/Time: Saturday, September 24, 2016 10:09 - CONCLUSION: 1. Nonobstructing right renal stones. 2. Right pleural effusion. 3. Mild ascites around the spleen. Duncan Latif MD Tubes & Lines: Adan Tubes & Lines Comment percutaneous cholecystostomy tube (Renetta Engle TRAINING SYSTEMS OFFICER) Physical Exam General Appearance: Well Developed, Well Nourished, No Acute Distress, Comfortable ( Renetta Engle. TRAINING SYSTEMS OFFICER) Throat Throat Exam: Oral Mucosa [place] & Moist (Renetta Engle B. TRAINING SYSTEMS OFFICER) Pulmonary Resp Exam: Clear Bilaterally, Breath Sounds Equal (Renetta Engle B. TRAINING SYSTEMS OFFICER) Cardiology CV Exam: Regular, Good Perfusion (Renetta Engle B. TRAINING SYSTEMS OFFICER) Gastrointestinal/Abdomen GI Exam: Soft, Non-Tender GI Remarks perc mitchell drain (Renetta Engle B. TRAINING SYSTEMS OFFICER) Genitourinary Exam: Clear Urine (Renetta Engle B. TRAINING SYSTEMS OFFICER) Musculoskeletal MS Exam: Joints Intact, Normal Tone (Renetta Engle B. TRAINING SYSTEMS OFFICER) Integumentary Skin Exam: Warm, Dry Skin Remarks ecchymosis right flank (Renetta Engle B. TRAINING SYSTEMS OFFICER) Extremeties Extremities Exam: Pedal Pulses Palpable, Moderate Edema (Renetta Engle B. TRAINING SYSTEMS OFFICER) Neurologic Neuro Exam: Alert, Awake, Oriented, Speech Clear, Moving All Extremities ( Renetta Engle B. TRAINING SYSTEMS OFFICER) Psychiatric Psych Exam: Appropriate Responses (Renetta Engle TRAINING SYSTEMS OFFICER) Assessment/Plan Discussed Condition With: Patient, Spouse Assessment Summary: FLOR/Acute Renal Failure, CKD Stage III Electrolyte Assessment: Hypokalemia Problem List: (1) FLOR (acute kidney injury) Plan: his renal function improving he has good urine output continue treatment for UTI, remove adan when able K normalized continue IVF as he is on clear liquids, then stop when diet advances continue cautiously as EF 25-30% he may require diuresis later avoid nephrotoxins daily renal panel (2) Sepsis Plan: on aztreonam, also on cipro blood culture reviewed, may be contaminant (3) Cholecystitis Plan: s/p percutaneous drain replacement (4) Anemia Plan: he is iron deficient avoid venofer in patients with sepsis, begin oral iron (5) UTI (urinary tract infection) Plan: antibiotics as above (Renetta Engle) Plan patient was seen and examined. Renal function has improved. Hypokalemia has improved. Continue to monitor electrolytes and fluid status. (Matti Whitmore MD) Problem Qualifiers (1) Sepsis: Qualified Code: A41.9 - Sepsis, due to unspecified organism (2) UTI (urinary tract infection): Qualified Code: N39.0 - Urinary tract infection with hematuria, site unspecified Renetta Engle Sep 26, 2016 10:44 Matti Whitmore MD Sep 26, 2016 19:49
--- NOTE | 2016-09-26 13:59 | RADRPT ---
EXAM DATE/TIME: 09/25/2016 13:58 [facility] COMPARISON: No previous studies available for comparison. INDICATIONS : Patient with a history of cholecystitis, needs good IV access. MEDICAL HISTORY : HTN, CHF, CVA, Diabetes, A-Fib, HLD, Dementia, Kidney stones, Prostate cancer SURGICAL HISTORY : Appendectomy, Prostatectomy ENCOUNTER: Initial ACUITY: 1 day PAIN SCORE: 0/10 FLUORO TIME: 0.2 minutes IMAGE SERIES: 1 ACCESS: Right internal jugular vein DEVICE(S): 1.) 7 [place] triple lumen 16 cm Arrow central line PROCEDURE : 1. Ultrasound guided venipuncture. 2. Fluoroscopic guidance. 3. Central line placement. The risks, benefits and alternatives to the procedure were explained and verbal and written consent w as obtained. The site was prepped in sterile fashion. Full sterile technique was used, including ca p, mask, sterile gloves and gown and a large sterile sheet. Hand hygiene and 2% chlorhexidine prep w as utilized per protocol for cutaneous antisepsis with appropriate dry time for site. The skin and subcutaneous tissues were infiltrated with local anesthetic solution. A suitable site a hattie the vein was selected with ultrasound and fluoroscopic guidance. A small incision was made. Th e vein was accessed under direct ultrasound visualization using the micropuncture technique. The emperatriz ropuncture set was exchanged for a 0.035 wire. The tract was dilated. The catheter was advanced int o position under direct fluoroscopic visualization. The catheter was fixed in place with suture and a sterile dressing was applied. The patient tolerated the procedure well and there were no complications. CONCLUSION: Uncomplicated line placement as above. Morgan Salazar Jr., MD on September 26, 2016 at 13:56 Board Certified Radiologist. This report was verified electronically.
--- NOTE | 2016-09-26 14:05 | RADRPT ---
EXAM DATE/TIME: 09/25/2016 13:58 [place] COMPARISON: No previous studies available for comparison. INDICATIONS : Patient with a history of cholecystitis, needs cholecystostomy tube evaluated. Current tube occluded. MEDICAL HISTORY : HTN, CHF, CVA, Diabetes, A-Fib, HLD, Dementia, Kidney stones, Prostate cancer SURGICAL HISTORY : Appendectomy, Prostatectomy ENCOUNTER: Subsequent ACUITY: 4 - 6 days PAIN SCORE: 0/10 FLUORO TIME: 2.0 minutes IMAGE SERIES: 5 30 minutes CONTRAST: 15 cc Omnipaque (iohexol) 350 MEDICATION(S): 1.) 3 mg midazolam (Versed) IV 2.) 150 mcg fentanyl (Sublimaze) IV DEVICE(S): 1.) 8FR skater PROCEDURE : 1. fluoroscopically guided cholecystostomy tube exchange. The risks, benefits and alternatives to the procedure were explained and verbal and written consent w as obtained. The site was prepped in sterile fashion. Full sterile technique was used, including ca p, mask, sterile gloves and gown and a large sterile sheet. Hand hygiene and 2% chlorhexidine and/or betadine/alcohol prep was utilized per protocol for cutaneous antisepsis. The skin and subcutaneous tissues were infiltrated with local anesthetic solution. Aspiration of the existing catheter shows no fluid return. Attempts at injecting contrast in the cath eter are met with significant resistance. There is blood clot noted within the hub of the drainage ca theter. The catheter was ligated and removed over a wire. A sheath was passed over the wire. Injectio n of contrast was performed through the sheath as the sheath was withdrawn through the tract. This wa s performed to evaluate for any cause of the hemobilia. No vascular structure is opacified. The gallb ladder opacifies with contrast. Multiple filling defects consistent with small stones noted. No opaci fication of the cystic duct seen. An 8 Turkish locking drainage catheter was passed over the wire and coiled within the lumen of the gallbladder. The catheter was sutured in place using 2-0 silk suture. Approximately 20 mL of dark brownish red fluid drained from the gallbladder. CONCLUSION: The original cholecystostomy tube is occluded. Evaluation of the tract was performed to try and ident alfred any cause of the hemobilia. No vascular structure was traversed with placement of the cholecystos bobby tube. A new drainage catheter was placed and is in good position. Morgan Salazar Jr., MD on September 26, 2016 at 13:57 Board Certified Radiologist. This report was verified electronically.
[2016-09-26 14:29] LABS: BICARBONATE 26.2 MEQ/L (21.0-32.0); POTASSIUM 3.7 MEQ/L (3.5-5.1)
--- NOTE | 2016-09-26 18:38 | HHI.PR ---
Subjective History of Present Illness resting in bed pain is in control No N/V No fever or chills No CP or SOB No cough or sputum no melena or BRBPR offers no other c/o Vitals/Results Intake & Output 09/25/16 09/25/16 09/26/16 15:00 23:00 07:00 Intake Total 532 ml 220 ml 1442 ml Output Total 300 ml 500 ml 260 ml Balance 232 ml -280 ml 1182 ml Intake Oral 220 ml 600 ml IV Total 532 ml 842 ml Output Urine Total 300 ml 500 ml 250 ml Drainage Total 10 ml # Bowel Movements 0 2 Vital Signs Vital Signs Date Time Temp Pulse Resp B/P Pulse Ox O2 Delivery O2 Flow Rate FiO2 09/26/16 16:00 98.0 82 20 141/71 100 09/26/16 12:00 98.0 90 20 132/63 100 09/26/16 09:30 73 09/26/16 09:30 Nasal Cannula 2.00 09/26/16 08:17 99 Nasal Cannula 2.00 09/26/16 08:00 98.0 84 20 144/84 100 09/26/16 03:15 97.0 77 20 132/65 99 09/26/16 00:00 98.9 78 22 131/60 100 09/25/16 20:40 78 09/25/16 20:40 94 Nasal Cannula 2.00 09/25/16 20:10 97.0 68 16 170/87 94 09/25/16 20:00 97.0 88 20 99 09/25/16 19:50 95 Nasal Cannula 2.00 CBC/BMP: 09/26/16 0500 09/26/16 1350 Lab Results Laboratory Tests Test 09/26/16 09/26/16 05:00 13:50 White Blood Count 5.3 TH/MM3 Red Blood Count 2.72 MIL/MM3 Hemoglobin 7.9 GM/DL Hematocrit 23.8 % Mean Corpuscular Volume 87.3 FL Mean Corpuscular Hemoglobin 29.0 PG Mean Corpuscular Hemoglobin 33.2 % Concent Red Cell Distribution Width 14.4 % Platelet Count 212 TH/MM3 Mean Platelet Volume 6.8 FL Neutrophils (%) (Auto) 71.9 % Lymphocytes (%) (Auto) 13.2 % Monocytes (%) (Auto) 9.8 % Eosinophils (%) (Auto) 4.3 % Basophils (%) (Auto) 0.8 % Neutrophils # (Auto) 3.8 TH/MM3 Lymphocytes # (Auto) 0.7 TH/MM3 Monocytes # (Auto) 0.5 TH/MM3 Eosinophils # (Auto) 0.2 TH/MM3 Basophils # (Auto) 0.0 TH/MM3 CBC Comment DIFF FINAL Differential Comment Sodium Level 145 MEQ/L Potassium Level 3.7 MEQ/L Chloride Level 113 MEQ/L Carbon Dioxide Level 26.2 MEQ/L Anion Gap 6 MEQ/L Blood Urea Nitrogen 34 MG/DL Creatinine 1.48 MG/DL Estimat Glomerular Filtration 45 ML/MIN Rate Random Glucose 194 MG/DL Calcium Level 7.8 MG/DL Phosphorus Level 2.2 MG/DL Albumin 2.0 GM/DL Physical Exam General General Appearance: No Acute Distress, Comfortable, Obese Eyes Eye Exam: Pupils Equal, Sclera White, Extraocular Movement Intact Ears & Nose Ears & Nose Exam: Nasal Mucosa [place] Throat Throat Exam: Oral Mucosa [place] & Moist Neck Neck Exam: Neck Supple, Trachea Midline Pulmonary Resp Exam: Crackles, Decreased Bases, Diminished Breath Sounds Cardiology CV Exam: Regular, Normal Sinus Rhythm Gastrointestinal/Abdomen GI Exam: Soft, Non-Tender GI Remarks Percutaneous cholecystostomy tube in place . +ve adan catheter . +ve rectal bag Genitourinary Exam: Clear Urine Integumentary Skin Exam: Warm, Dry Extremeties Extremities Exam: Pedal Pulses Palpable, Moderate Edema Neurologic Neuro Exam: Alert, Awake, Speech Clear, Moving All Extremities Neuro Remarks forgetful Psychiatric Psych Exam: Appropriate Responses PUD Prophylasis PUD Prophylaxis: Protonix Assessment/Plan Assessment/Plan ASSESSMENT AND PLAN 1. Possible sepsis. 2. UTI/Pneumonia. 3. Acute Cholecystitis.s/p Percutaneous Cholecystostomy s/p cholecystostomy exchange 3 4. Acute kidney injury. 5. Hypokalemia. 6. Anemia acute on chronic , blood loss anemia 7. s/p NSTEMI 8. Hx CM 9. Dementia 10.advance age/[facility] PLAN O2 Blood c/s neg urine c/s +ne IV azactam/cipro CONS in blood contaminant cautious hydration 6 beat Runs of WCT, check K/mag d/c Lopressor , inc Coreg dose cont statin Aricept/Namenda PPI analgesic cholecystostomy tube care PT eval AM labs will obtain palliative care consult will f/u Ashly Borrego MD Sep 26, 2016 18:38
[2016-09-26] MEDS: DONEPEZIL HCL 5 MG TAB PO SCH (21:39)
[2016-09-26] MEDS: ATORVASTATIN 20 MG TAB PO SCH (21:40)
[2016-09-27] VITALS (9 sets, daily range): BP systolic 117–152; BP diastolic 59–99; PULSE 70–90; RESP 20–22; TEMP 97.5–98.7; O2SAT 94–99
[2016-09-27] MEDS: NITROGLYCERIN 2% OINT 1 GM PACKET TOPICAL SCH ×4 (01:45→20:30)
[2016-09-27] MEDS: AZTREONAM INJ 500 MG in SODIUM CHLORIDE 0.9% INJ 100 ML IV SCH ×3 (01:47→20:29)
[2016-09-27 04:07] LABS: HEMATOCRIT 25.8 % (39.0-51.0); MEAN CORPUSCULAR HEMOGLOBIN 29.1 PG (27.0-34.0); PLATELET COUNT 217 TH/MM3 (150-450); RED BLOOD COUNT 2.93 MIL/MM3 (4.50-5.90); RED CELL DISTRIBUTION WIDTH 14.5 % (11.6-17.2); REVIEW FLAG FINAL; WHITE BLOOD COUNT 8.1 TH/MM3 (4.0-11.0)
[2016-09-27 04:25] LABS: BICARBONATE 23.3 MEQ/L (21.0-32.0); MAGNESIUM 2.1 MG/DL (1.5-2.5); POTASSIUM 3.7 MEQ/L (3.5-5.1)
[2016-09-27] MEDS: ACETAMINOPHEN/HYDROcodone 325 MG/5 MG TAB PO PRN (04:59)
[2016-09-27] MEDS: CIPROFLOXACIN 400 MG PREMIX 200 ML IV SCH (05:00)
[2016-09-27] MEDS: POTASSIUM CHLORIDE INJ 10 MEQ in SODIUM CHLOR 0.9% 1000 ML INJ 1,000 ML IV SCH (05:02)
[2016-09-27] MEDS: INSULIN ASPART SUPPLEMENTAL SCALE SQ SCH ×4 (05:55→20:33)
--- NOTE | 2016-09-27 07:51 | HHI.NPPN ---
Subjective General Problems: Anemia, Edema Renal Failure: Chronic, Acute, Stage III Interval History patient is confused. Knows his name, he is disoriented to place and time. He is non oliguric. Review of Systems General Constitutional: Fatigue Musculoskeletal MS: Pain/Stiffness Heme-Lymph Heme-Lymph: Bruising Objective Data Data 09/26/16 09/27/16 19:00 07:00 Intake Total 979 ml 1787 ml Output Total 400 ml 710 ml Balance 579 ml 1077 ml Intake Oral 480 ml 620 ml IV Total 499 ml 1167 ml Output Urine Total 350 ml 650 ml Stool Total 50 ml 50 ml Drainage Total 10 ml Vital Signs Date Time Temp Pulse Resp B/P Pulse Ox O2 Delivery O2 Flow Rate FiO2 09/27/16 07:35 98 Nasal Cannula 2.00 09/27/16 04:00 98.6 84 20 145/69 98 09/27/16 00:00 98.2 83 20 117/74 99 09/26/16 20:00 Nasal Cannula 2.00 09/26/16 20:00 98.2 68 20 126/74 94 09/26/16 20:00 73 09/26/16 19:48 98 Nasal Cannula 2.00 09/26/16 16:00 98.0 82 20 141/71 100 09/26/16 12:00 98.0 90 20 132/63 100 09/26/16 09:30 73 09/26/16 09:30 Nasal Cannula 2.00 09/26/16 08:17 99 Nasal Cannula 2.00 09/26/16 08:00 98.0 84 20 144/84 100 -: 09/27/16 0343 09/27/16 0343 Tubes & Lines: [place] Tubes & Lines Comment percutaneous cholecystostomy tube Physical Exam General Appearance: No Acute Distress, Comfortable Eyes Eye Exam: Pupils Equal, Sclera White, Extraocular Movement Intact Ears & Nose Ears & Nose Exam: Nasal Mucosa [place] Throat Throat Exam: Oral Mucosa [place] & Moist Neck Neck Exam: Neck Supple, Trachea Midline Pulmonary Resp Exam: Crackles, Decreased Bases, Diminished Breath Sounds Cardiology CV Exam: Regular, Normal Sinus Rhythm Gastrointestinal/Abdomen GI Exam: Soft, Non-Tender Genitourinary Exam: Clear Urine Integumentary Skin Exam: Warm, Dry Extremeties Extremities Exam: Pedal Pulses Palpable, Moderate Edema Neurologic Neuro Exam: Alert, Awake, Speech Clear, Moving All Extremities Psychiatric Psych Exam: Appropriate Responses PUD Prophylasis PUD Prophylaxis: Protonix Assessment/Plan Discussed Condition With: Patient, Spouse Assessment Summary: FLOR/Acute Renal Failure, CKD Stage III Electrolyte Assessment: Hypokalemia Problem List: (1) FLOR (acute kidney injury) Plan: his renal function improving he has good urine output continue treatment for UTI, recommend to remove Macias catheter. One dose of Diuril today. Encourage oral intake. Needs physical therapy. (2) Sepsis Plan: on aztreonam, also on cipro blood culture reviewed, may be contaminant (3) Cholecystitis Plan: s/p percutaneous drain replacement (4) Anemia Plan: he is iron deficient avoid venofer in patients with sepsis, begin oral iron (5) UTI (urinary tract infection) Plan: antibiotics as above Problem Qualifiers (1) Sepsis: Qualified Code: A41.9 - Sepsis, due to unspecified organism (2) UTI (urinary tract infection): Qualified Code: N39.0 - Urinary tract infection with hematuria, site unspecified Matti Whitmore MD Sep 27, 2016 07:51
[2016-09-27] MEDS ORDERED: CHLOROTHIAZIDE SOD 500 MG VIAL IV ONE (08:00)
[2016-09-27] MEDS: PANTOPRAZOLE SODIUM 40 MG VIAL IV SCH ×2 (08:33→08:54)
[2016-09-27] MEDS: HEPARIN SODIUM - SQ 10,000 UNITS/ML VIAL SQ SCH ×2 (08:33→20:30)
[2016-09-27] MEDS: CARVEDILOL 6.25 MG TAB PO SCH ×2 (08:34→20:29)
[2016-09-27] MEDS: PANTOPRAZOLE SOD 40 MG DELAYED RELEASE TAB PO SCH (08:34)
[2016-09-27] MEDS: CITALOPRAM HYDROBROMIDE 20 MG TAB PO SCH (08:34)
[2016-09-27] MEDS: ASPIRIN EC 325 MG TABEC PO SCH (08:34)
[2016-09-27] MEDS: SODIUM CHLORIDE 0.9% FLUSH 5 ML FLUSH IV FLUSH SCH ×2 (08:35→20:30)
[2016-09-27] MEDS: SODIUM CHLORIDE 0.9% FLUSH 5 ML FLUSH IVF SCH (08:35)
[2016-09-27] MEDS: DOCUSATE SODIUM 100 MG CAP PO SCH ×2 (08:37→20:29)
[2016-09-27] MEDS: FLUTICASONE PROPIONATE 50 MCG/ACT 16 GM NASAL SPRAY EACH NARE SCH (10:22)
[2016-09-27] MEDS: MEMANTINE HCL 10 MG TAB PO SCH ×2 (10:22→20:29)
--- NOTE | 2016-09-27 10:22 | HHI.PR ---
Subjective Subjective Remarks alert pleasant confusion, continuous for now no family present pale, mild SOB at rest (Rocío Silverman) Review of Systems Constitutional Constitutional Remarks Limited ROS secondary to patient's altered mental status (Rocío Silverman) Vitals/Results Intake & Output 09/26/16 09/26/16 09/27/16 15:00 23:00 07:00 Intake Total 979 ml 300 ml 1487 ml Output Total 400 ml 300 ml 410 ml Balance 579 ml 0 ml 1077 ml Intake Oral 480 ml 300 ml 320 ml IV Total 499 ml 1167 ml Output Urine Total 350 ml 250 ml 400 ml Stool Total 50 ml 50 ml Drainage Total 10 ml Vital Signs Vital Signs Date Time Temp Pulse Resp B/P Pulse Ox O2 Delivery O2 Flow Rate FiO2 09/27/16 08:00 98.1 82 20 143/65 96 09/27/16 07:35 98 Nasal Cannula 2.00 09/27/16 04:00 98.6 84 20 145/69 98 09/27/16 00:00 98.2 83 20 117/74 99 09/26/16 20:00 Nasal Cannula 2.00 09/26/16 20:00 98.2 68 20 126/74 94 09/26/16 20:00 73 09/26/16 19:48 98 Nasal Cannula 2.00 09/26/16 16:00 98.0 82 20 141/71 100 09/26/16 12:00 98.0 90 20 132/63 100 (Rocío Silverman) CBC/BMP: 09/27/16 0343 09/27/16 0343 Lab Results Laboratory Tests Test 09/26/16 09/27/16 13:50 03:43 Sodium Level 145 MEQ/L 144 MEQ/L Potassium Level 3.7 MEQ/L 3.7 MEQ/L Chloride Level 113 MEQ/L 112 MEQ/L Carbon Dioxide Level 26.2 MEQ/L 23.3 MEQ/L Anion Gap 6 MEQ/L 9 MEQ/L Blood Urea Nitrogen 34 MG/DL 31 MG/DL Creatinine 1.48 MG/DL 1.38 MG/DL Estimat Glomerular Filtration 45 ML/MIN 49 ML/MIN Rate Random Glucose 194 MG/DL 167 MG/DL Calcium Level 7.8 MG/DL 8.3 MG/DL Phosphorus Level 2.2 MG/DL Albumin 2.0 GM/DL White Blood Count 8.1 TH/MM3 Red Blood Count 2.93 MIL/MM3 Hemoglobin 8.5 GM/DL Hematocrit 25.8 % Mean Corpuscular Volume 88.0 FL Mean Corpuscular Hemoglobin 29.1 PG Mean Corpuscular Hemoglobin 33.0 % Concent Red Cell Distribution Width 14.5 % Platelet Count 217 TH/MM3 Mean Platelet Volume 6.9 FL Magnesium Level 2.1 MG/DL Imaging Remarks Last Impressions Abdomen CT 09/26/16 0000 Signed Impressions: Service Date/Time: Monday, September 26, 2016 08:40 - CONCLUSION: 1. Cholecystostomy tube in good position. 2. Moderate right pleural effusion and mild left effusion with accompanying areas of atelectasis and/or consolidation. 3. Mild ascites around the liver and spleen. Duncan Latif MD Cholangiogram 09/25/16 0000 Signed Impressions: Service Date/Time: Sunday, September 25, 2016 13:58 - CONCLUSION: The original cholecystostomy tube is occluded. Evaluation of the tract was performed to try and identify any cause of the hemobilia. No vascular structure was traversed with placement of the cholecystostomy tube. A new drainage catheter was placed and is in good position. Morgan Salazar Jr., MD Central Venous Line 09/25/16 0000 Signed Impressions: Service Date/Time: Sunday, September 25, 2016 13:58 - CONCLUSION: Uncomplicated line placement as above. Morgan Salazar Jr., MD Renal Ultrasound 09/24/16 0000 Signed Impressions: Service Date/Time: Saturday, September 24, 2016 10:09 - CONCLUSION: 1. Nonobstructing right renal stones. 2. Right pleural effusion. 3. Mild ascites around the spleen. Duncan Latif MD Chest X-Ray 09/23/16 0600 Signed Impressions: Service Date/Time: Friday, September 23, 2016 03:51 - CONCLUSION: Increasing infiltrates in the right lung and persistent left lower lung consolidation. Morgan Venegas MD Abdomen/Pelvis CT 09/21/16 0240 Signed Impressions: Service Date/Time: Wednesday, September 21, 2016 03:27 - CONCLUSION: 1. Abnormal appearance to the gallbladder with multiple small calcified stones, marked distention of the gallbladder, and induration of the fat about the gallbladder tracking along the mesentery in the right upper quadrant. Recommend correlation with clinical exam for possible acute cholecystitis.. 2. Large bilateral pleural effusions, right greater than left. Morgan Venegas MD Percutaneous Cholangiogram 09/21/16 0000 Signed Impressions: Service Date/Time: Wednesday, September 21, 2016 15:50 - CONCLUSION: Uncomplicated percutaneous cholecystostomy as above. Emery Truong MD Other EMR Data Laboratory Tests Test 09/24/16 09/24/16 09/24/16 09/24/16 13:00 19:47 20:00 20:27 Stool C. difficile Toxin (PCR) NEGATIVE NEGATIVE Stl C. difficile Toxin PRESUMPTIVE PRESUMPTIVE Epiderm 027 NEGATIVE NEGATIVE Blood Type A POSITIVE Antibody Screen NEGATIVE Blood Bank Comment Potassium Level 3.5 MEQ/L Test 09/24/16 09/25/16 09/26/16 09/26/16 21:22 03:20 05:00 13:50 Hemoglobin 8.4 GM/DL 8.2 GM/DL 7.9 GM/DL Hematocrit 25.6 % 24.6 % 23.8 % Prothrombin Time 11.7 SEC Prothromb Time International 1.1 RATIO Ratio White Blood Count 6.0 TH/MM3 5.3 TH/MM3 Red Blood Count 2.79 MIL/MM3 2.72 MIL/MM3 Mean Corpuscular Volume 88.0 FL 87.3 FL Mean Corpuscular Hemoglobin 29.2 PG 29.0 PG Mean Corpuscular Hemoglobin 33.2 % 33.2 % Concent Red Cell Distribution Width 14.2 % 14.4 % Platelet Count 208 TH/MM3 212 TH/MM3 Mean Platelet Volume 7.1 FL 6.8 FL Sodium Level 145 MEQ/L 145 MEQ/L Potassium Level 3.4 MEQ/L 3.7 MEQ/L Chloride Level 109 MEQ/L 113 MEQ/L Carbon Dioxide Level 24.6 MEQ/L 26.2 MEQ/L Anion Gap 11 MEQ/L 6 MEQ/L Blood Urea Nitrogen 38 MG/DL 34 MG/DL Creatinine 1.68 MG/DL 1.48 MG/DL Estimat Glomerular Filtration 39 ML/MIN 45 ML/MIN Rate Random Glucose 105 MG/DL 194 MG/DL Calcium Level 8.0 MG/DL 7.8 MG/DL Neutrophils (%) (Auto) 71.9 % Lymphocytes (%) (Auto) 13.2 % Monocytes (%) (Auto) 9.8 % Eosinophils (%) (Auto) 4.3 % Basophils (%) (Auto) 0.8 % Neutrophils # (Auto) 3.8 TH/MM3 Lymphocytes # (Auto) 0.7 TH/MM3 Monocytes # (Auto) 0.5 TH/MM3 Eosinophils # (Auto) 0.2 TH/MM3 Basophils # (Auto) 0.0 TH/MM3 CBC Comment DIFF FINAL Differential Comment Phosphorus Level 2.2 MG/DL Albumin 2.0 GM/DL Test 09/27/16 03:43 White Blood Count 8.1 TH/MM3 Red Blood Count 2.93 MIL/MM3 Hemoglobin 8.5 GM/DL Hematocrit 25.8 % Mean Corpuscular Volume 88.0 FL Mean Corpuscular Hemoglobin 29.1 PG Mean Corpuscular Hemoglobin 33.0 % Concent Red Cell Distribution Width 14.5 % Platelet Count 217 TH/MM3 Mean Platelet Volume 6.9 FL Sodium Level 144 MEQ/L Potassium Level 3.7 MEQ/L Chloride Level 112 MEQ/L Carbon Dioxide Level 23.3 MEQ/L Anion Gap 9 MEQ/L Blood Urea Nitrogen 31 MG/DL Creatinine 1.38 MG/DL Estimat Glomerular Filtration 49 ML/MIN Rate Random Glucose 167 MG/DL Calcium Level 8.3 MG/DL Magnesium Level 2.1 MG/DL (Rocío SilvermanP) Physical Exam General General Appearance: Well Developed, No Acute Distress, Comfortable, Anxious ( mild) (Rocío Silverman [employer] ASS[employer]) Eyes Eye Exam: Pupils Equal, Sclera White, Extraocular Movement Intact (Rocío SilvermanP) Ears & Nose Ears & Nose Exam: Nasal Mucosa [place] (Rocío Silverman [employer] ASSOCIATE) Throat Throat Exam: Oral Mucosa [place] & Moist (Rocío Silverman [employer] ASS[employer]) Neck Neck Exam: Neck Supple, Trachea Midline (Rocío SilvermanP) Pulmonary Resp Exam: Crackles, Decreased Bases, Diminished Breath Sounds, Poor Inspiratory Effort (Rocío Silverman [employer] ASSOCIATE) Cardiology CV Exam: Regular, Normal Sinus Rhythm, Arrhythmia (Rocío Silverman [employer] ASS[employer]) Gastrointestinal/Abdomen GI Exam: Soft, Non-Tender (Rocío SilvermanP) Genitourinary Exam: Clear Urine (Rocío Silverman) Musculoskeletal MS Exam: Atrophy MS Remarks Debility (Rocío Silverman) Integumentary Skin Exam: Warm, Dry (Rocío Silverman) Extremeties Extremities Exam: Pedal Pulses Palpable, Moderate Edema (Rocío Silverman) Neurologic Neuro Exam: Alert, Awake, Speech Clear, Moving All Extremities (Rocío Silverman) Psychiatric Psych Exam: Appropriate Responses (Rocío Silverman) PUD Prophylasis PUD Prophylaxis: Protonix (Rocío Silverman) Assessment/Plan Assessment/Plan ASSESSMENT AND PLAN 1. Possible sepsis. 2. UTI/Pneumonia. 3. Acute Cholecystitis.s/p Percutaneous Cholecystostomy s/p cholecystostomy exchange 3.14.17 4. Acute kidney injury. 5. Hypokalemia. 6. Anemia acute on chronic , blood loss anemia 7. s/p NSTEMI 8. Hx CM 9. Dementia 10.advance age/[facility] PLAN O2 Blood c/s neg urine c/s positive for Escherichia coli, UTI IV azactam/cipro IV continues cautious hydration, gentle Mild shortness of breath, O2 on when necessary currently 96% on room air Right pleural effusion continues, lasix 20mg, IV X 1 pleasant confusion continues, better when family in rm. Continue Aricept and Namenda 6 beat Runs of WCT, d/c Lopressor , inc Coreg dose PT therapy for eval and treat, debility and weakness and continues palliative care consult pending, patient and family need meeting for goals of care Discussed with nurse Discussed with Dr. Borrego, patient seen on his behalf (Rocío Silverman) Assessment/Plan pt is seen & examined d/w PT d/w rocío d/w RN agree w above s see orders will f/u (Ashly Borrego MD) Rocío Silverman Sep 27, 2016 10:22 Ashly Borrego MD Sep 27, 2016 17:49
[2016-09-27] MEDS ORDERED: FUROSEMIDE 20 MG/2 ML VIAL IV PUSH ONE (10:30)
--- NOTE | 2016-09-27 11:27 | PD.CONS ---
Consult Service Palliative Care Consult Requested By Dr Borrego. Primary Care Physician Non-Staff Reason for Consultation a. To assist with evaluation and management of symptoms including: dyspnea, pain b. To assist medical decision maker(s) with: better understanding of current medical conditions; weighing benefits/burdens of medical treatment options; making medical treatment decisions. (Elana Vernon) HPI History of Present Illness This is an 86-year-old gentleman a resident of [facility] who presented to the ED on 09/21/16 with c/o severe right upper quadrant pain and back pain. Initial diagnostics identified elevated WBC's of 16.4; a BNP > 1000 as well as elevated serial troponins with for concern for probable myocardial infarction, non-STEMI. This is in light of his history of CAD and chronic A Fib. He has known cardiomyopathy with a ejection fraction of 25-30% and recurrent CHF w EF of 25-30%. Mircrobiology studies found he was + for UTI ( e coli) and Blood ( Staph Epi). CT scan was consistent with acute Cholecystitis. 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 as well as a remote history of prostate cancer. He c/o chronic pain to his L hip and knee since his stroke. Pt was hospitalized at [facility] in July, for decompensated congestive heart failure. Prior to July , he had been living at home with his . He was able to get around the house with the use of a walker. He had some mild cognitive changes/ forgetfulness, but was manageable. After his hospitalization in July,he became physically debilitated, requiring placement at [facility] for rehabilitation. He is seen with his at the bedside. He is pleasant, no apparent distress. He is slightly pale, he is on room air. He tells me his left hip and left knee hurt, but otherwise he has no other discomfort. He is a reasonable historian with some cueing from his on some details. He has a biliary drain with bright red blood. His tells me he is not a surgical candidate due to his history of hemorrhagic stroke. They are hoping that antibiotics and the biliary drain will resolve the problem and that he will not need surgery. She already anticipates that he will need placement back at [facility]. She is unable to care for him at home. Discussed CODE STATUS with and patient present. states that he would want to be a DNR. That is what they had talked about in the past. She is the designated healthcare surrogate and he has documentation supporting both that as well as a living will at home. She will bring in to the hospital next time she comes in. (Elana Vernon) Review of Systems ROS Limitations: Clinical Condition, Altered Mental Status Constitutional: COMPLAINS OF: Fatigue Endocrine: DENIES: Polydipsia, Polyuria, Polyphagia Eyes: DENIES: Blurred vision, Blind spots Ears, nose, mouth, throat: COMPLAINS OF: Hearing loss Respiratory: COMPLAINS OF: Shortness of breath, DENIES: Cough, Hemoptysis Cardiovascular: COMPLAINS OF: Lower Extremity Edema, DENIES: Chest pain, Palpitations Gastrointestinal: COMPLAINS OF: Abdominal pain, Diarrhea Genitourinary: COMPLAINS OF: Urinary incontinence Musculoskeletal: COMPLAINS OF: Joint pain, Muscle aches, Back pain Neurologic: COMPLAINS OF: Abnormal gait, Poor Balance Psychiatric: COMPLAINS OF: Confusion Other ROS: Patient is a reasonable historian, however, his is present and assists with some information (Elana Vernon) Past Family Social History Coded Allergies: Cephalexin (Verified Allergy, Unknown, 09/21/16) Plavix (Verified Allergy, Unknown, 09/21/16) Past Medical History Positive for stroke Dementia, Diabetes on oral hypoglycemics Major depressive disorder Chronic low back pain Past Surgical History Right knee replacement Total prostatectomy for prostate cancer Reported Medications Coreg (Carvedilol) 6.25 Mg Tab 6.25 Mg PO BID Eliquis (Apixaban) 2.5 Mg Tab 2.5 Mg PO DAILY Potassium Citrate ER 1,080 Mg Tab 1,080 PO BID Protonix (Pantoprazole Sodium) 40 Mg Tab 40 Mg PO DAILY Procardia (Nifedipine) 10 Mg Cap 30 Mg PO BID Nasonex Nasal Scalf (Mometasone Furoate) 50 Mcg/Act Naspr 2 Scalf EACH NARE DAILY Metformin ER (Metformin HCl) 500 Mg Clayton 500 Mg PO BIDPC With evening meal Namenda (Memantine) 10 Mg Tab 10 Mg PO BID Lisinopril-Hctz 20-25 Mg Tab 1 Tab PO DAILY Aricept (Donepezil) 10 Mg Tab 10 Mg PO HS Lasix (Furosemide) 20 Mg Tab 20 Mg PO DAILY Flexeril (Cyclobenzaprine HCl) 10 Mg Tab 10 Mg PO QHS Clonidine (Clonidine HCl) 0.2 Mg Tab 0.2 Mg PO DAILY Axona (Dietary Management Product) 1 Pow Pow 1 Citalopram (Citalopram Hydrobromide) 20 Mg Tab 20 Mg PO DAILY Atorvastatin (Atorvastatin Calcium) 20 Mg Tab 20 Mg PO HS Aspirin 81 Mg Tabdr 81 Mg PO DAILY Current Medications Medications (Trade) Dose Ordered Sig/Ale Route Start Time Stop Time Status Last Admin (NS Flush) 2 ml UNSCH PRN IV FLUSH 09/21/16 06:15 (NS Flush) 2 ml BID IV FLUSH 09/21/16 09:00 09/27/16 08:35 (Protonix Inj) 40 mg DAILY IV 09/21/16 09:00 Miscellaneous Information 1 Q361D XX 09/21/16 06:15 09/21/16 06:15 (Chlorhexidine 2% Cloth) Taper DAILY@04 TOP 09/22/16 04:00 09/18/17 03:59 09/25/16 04:00 (Chlorhexidine 2% Cloth) 3 pack UNSCH PRN TOP 09/21/16 06:15 (D50w (Vial) Inj) 25 ml UNSCH PRN IV PUSH 09/21/16 06:15 Glucagon 1 mg 1 mg UNSCH PRN OTHER 09/21/16 06:15 (Cipro 400 Mg Premix) 200 ml @ 200 mls/hr Q12H IV 09/21/16 18:00 09/27/16 05:00 (Lipitor) 20 mg HS PO 09/21/16 21:00 09/26/16 21:40 (CeleXA) 20 mg DAILY PO 09/21/16 09:00 09/27/16 08:34 (Aricept) 10 mg HS PO 09/21/16 21:00 09/26/16 21:39 (Namenda) 10 mg BID PO 09/21/16 09:00 09/27/16 10:22 (Flonase Abdoul Spr) 2 spray DAILY EACH NARE 09/21/16 09:00 09/27/16 10:22 (Protonix) 40 mg DAILY PO 09/21/16 09:00 09/27/16 08:34 (Nitroglycerin 2% Oint) 1 inch Q6H TOPICAL 09/21/16 20:00 09/27/16 08:36 (NovoLOG SUPPLEMENTAL SCALE) 1 ACHS SQ 09/22/16 16:00 09/27/16 05:55 (Tylenol) 650 mg Q6H PRN PO 09/22/16 16:00 (Bonaparte 5-325 Mg) 1 tab Q4H PRN PO 09/22/16 16:00 09/27/16 04:59 (Morphine Inj) 2 mg Q2H PRN IV 09/22/16 16:00 (Zofran Inj) 4 mg Q6H PRN IV 09/22/16 16:00 (Colace) 100 mg BID PO 09/22/16 21:00 09/24/16 20:58 (Senokot) 17.2 mg Q12H PRN PO 09/22/16 16:00 (Heparin Inj) 5,000 units Q12HR SQ 09/23/16 09:00 09/27/16 08:33 Aspirin 325 mg 325 mg DAILY PO 09/24/16 09:15 09/27/16 08:34 (KCl Inj/NS 1000 ml Inj) 1,005 ml @ 42 mls/hr Q24H IV 09/25/16 01:00 09/27/16 05:02 (NS Flush) DAILY IVF 09/26/16 09:00 09/27/16 08:35 IV Flush UNSCH PRN IVF 09/25/16 16:30 (Azactam Inj/NS Inj) 100 ml @ 200 mls/hr Q8H IV 09/26/16 03:00 09/27/16 01:47 (Coreg) 12.5 mg BID PO 09/26/16 21:00 09/27/16 08:34 Family History Father from [place] age 74, Mother from stroke age Substance Use Tobacco: used to smoke - quit many years ago - per he he was a 'sproadic smoker" Alcohol: no abuse history; Prescription med abuse: denies Illicits: denies Psychosocial History to Nina in 1965, has 3 daughters who all live in [place], 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, Served in the [employer] for about 10 yrs - [employer], Has a Bachelors degree in Business Administration , Raised Christianity, but is no longer affiliated Spiritual/Cultural Factors Raised Bapt[employer], but is o longer affiliated (Elana Vernon) Living Will: Completed, but not made available Health Care Surrogate: Completed, but not made available Health Care Surrogate(s): , Mary Ibrahim, Today's verbally stated goals: DNR/ DNI Status - per their discussion together and LW Family/friends goals: Ethical and Legal Issues none evident (Elana Vernon) Physical Exam Vital Signs Date Time Temp Pulse Resp B/P Pulse Ox O2 Delivery O2 Flow Rate FiO2 09/27/16 08:00 98.1 82 20 143/65 96 09/27/16 07:35 98 Nasal Cannula 2.00 09/27/16 04:00 98.6 84 20 145/69 98 09/27/16 00:00 98.2 83 20 117/74 99 09/26/16 20:00 Nasal Cannula 2.00 09/26/16 20:00 98.2 68 20 126/74 94 09/26/16 20:00 73 09/26/16 19:48 98 Nasal Cannula 2.00 09/26/16 16:00 98.0 82 20 141/71 100 09/26/16 12:00 98.0 90 20 132/63 100 09/26/16 09/27/16 19:00 07:00 Intake Total 979 ml 1787 ml Output Total 400 ml 710 ml Balance 579 ml 1077 ml Intake Oral 480 ml 620 ml IV Total 499 ml 1167 ml Output Urine Total 350 ml 650 ml Stool Total 50 ml 50 ml Drainage Total 10 ml Exam CONSTITUTIONAL/GENERAL: This is an adequately nourished patient, in no apparent distress. Awake, alert conversant with mild memory loss TUBES/LINES/DRAINS: Biliary drain, Macias catheter, Rectal bag, RIJ central line SKIN: No jaundice, rashes, or lesions. Ecchymoses on upper extremities. No wounds seen anteriorly. Skin temperature appropriate. Not diaphoretic. HEAD: Atraumatic. Normocephalic. EYES: Pupils equal and round and reactive. Extraocular motions intact. No scleral icterus. No injection or drainage. ENT: Mildly hard of hearing. Nose without bleeding or purulent drainage. Throat without visible erythema, exudates, masses, or lesions. NECK: Trachea midline. Supple, nontender. No palpable thyroid enlargement or nodularity. CARDIOVASCULAR: IRRegular rate and rhythm without murmurs, No JVD. Peripheral pulses symmetric. Edema to BLE L>R RESPIRATORY/CHEST: Symmetric, unlabored respirations. Clear to auscultation. diminished Breath sounds posterior bases. no cough. GASTROINTESTINAL: Abdomen soft, non-tender, nondistended. No hepato-splenomegaly , or palpable masses. No guarding. Bowel sounds present. GENITOURINARY: Without palpable bladder distension. Macias catheter in place. MUSCULOSKELETAL: Extremities without clubbing, cyanosis, or edema. No joint tenderness or effusion noted. No calf tenderness. No mottling or clubbing. LYMPHATICS: No palpable cervical or supraclavicular adenopathy. NEUROLOGICAL: Awake and alert x 2, some short term loss. will find answer with cueing, Motor and sensory within normal limits but weak. Follows commands. Moves all extremities. PSYCHIATRIC: No obvious anxiety/depression. no apparent hallucinations or other psychotic thought process. (Elana Vernon) Diagnostic Tests Laboratory Laboratory Tests Test 09/24/16 09/24/16 09/24/16 09/24/16 13:00 19:47 20:00 20:27 Stool C. difficile Toxin (PCR) NEGATIVE NEGATIVE (NEGATIVE) (NEGATIVE) Stl C. difficile Toxin PRESUMPTIVE PRESUMPTIVE Epiderm 027 NEGATIVE NEGATIVE (NEGATIVE) (NEGATIVE) Blood Type A POSITIVE Antibody Screen NEGATIVE Blood Bank Comment Potassium Level 3.5 MEQ/L (3.5-5.1) Test 09/24/16 09/25/16 09/26/16 09/26/16 21:22 03:20 05:00 13:50 Hemoglobin 8.4 GM/DL 8.2 GM/DL 7.9 GM/DL (13.0-17.0) (13.0-17.0) (13.0-17.0) Hematocrit 25.6 % 24.6 % 23.8 % (39.0-51.0) (39.0-51.0) (39.0-51.0) Prothrombin Time 11.7 SEC (9.8-11.6) Prothromb Time International 1.1 RATIO Ratio White Blood Count 6.0 TH/MM3 5.3 TH/MM3 (4.0-11.0) (4.0-11.0) Red Blood Count 2.79 MIL/MM3 2.72 MIL/MM3 (4.50-5.90) (4.50-5.90) Mean Corpuscular Volume 88.0 FL 87.3 FL (80.0-100.0) (80.0-100.0) Mean Corpuscular Hemoglobin 29.2 PG 29.0 PG (27.0-34.0) (27.0-34.0) Mean Corpuscular Hemoglobin 33.2 % 33.2 % Concent (32.0-36.0) (32.0-36.0) Red Cell Distribution Width 14.2 % 14.4 % (11.6-17.2) (11.6-17.2) Platelet Count 208 TH/MM3 212 TH/MM3 (150-450) (150-450) Mean Platelet Volume 7.1 FL 6.8 FL (7.0-11.0) (7.0-11.0) Sodium Level 145 MEQ/L 145 MEQ/L (136-145) (136-145) Potassium Level 3.4 MEQ/L 3.7 MEQ/L (3.5-5.1) (3.5-5.1) Chloride Level 109 MEQ/L 113 MEQ/L (98-107) (98-107) Carbon Dioxide Level 24.6 MEQ/L 26.2 MEQ/L (21.0-32.0) (21.0-32.0) Anion Gap 11 MEQ/L (5-15) 6 MEQ/L (5-15) Blood Urea Nitrogen 38 MG/DL (7-18) 34 MG/DL (7-18) Creatinine 1.68 MG/DL 1.48 MG/DL (0.60-1.30) (0.60-1.30) Estimat Glomerular Filtration 39 ML/MIN (>89) 45 ML/MIN (>89) Rate Random Glucose 105 MG/DL 194 MG/DL (74-106) (74-106) Calcium Level 8.0 MG/DL 7.8 MG/DL (8.5-10.1) (8.5-10.1) Neutrophils (%) (Auto) 71.9 % (16.0-70.0) Lymphocytes (%) (Auto) 13.2 % (9.0-44.0) Monocytes (%) (Auto) 9.8 % (0.0-8.0) Eosinophils (%) (Auto) 4.3 % (0.0-4.0) Basophils (%) (Auto) 0.8 % (0.0-2.0) Neutrophils # (Auto) 3.8 TH/MM3 (1.8-7.7) Lymphocytes # (Auto) 0.7 TH/MM3 (1.0-4.8) Monocytes # (Auto) 0.5 TH/MM3 (0-0.9) Eosinophils # (Auto) 0.2 TH/MM3 (0-0.4) Basophils # (Auto) 0.0 TH/MM3 (0-0.2) CBC Comment DIFF FINAL Differential Comment Phosphorus Level 2.2 MG/DL (2.5-4.9) Albumin 2.0 GM/DL (3.4-5.0) Test 09/27/16 03:43 White Blood Count 8.1 TH/MM3 (4.0-11.0) Red Blood Count 2.93 MIL/MM3 (4.50-5.90) Hemoglobin 8.5 GM/DL (13.0-17.0) Hematocrit 25.8 % (39.0-51.0) Mean Corpuscular Volume 88.0 FL (80.0-100.0) Mean Corpuscular Hemoglobin 29.1 PG (27.0-34.0) Mean Corpuscular Hemoglobin 33.0 % Concent (32.0-36.0) Red Cell Distribution Width 14.5 % (11.6-17.2) Platelet Count 217 TH/MM3 (150-450) Mean Platelet Volume 6.9 FL (7.0-11.0) Sodium Level 144 MEQ/L (136-145) Potassium Level 3.7 MEQ/L (3.5-5.1) Chloride Level 112 MEQ/L (98-107) Carbon Dioxide Level 23.3 MEQ/L (21.0-32.0) Anion Gap 9 MEQ/L (5-15) Blood Urea Nitrogen 31 MG/DL (7-18) Creatinine 1.38 MG/DL (0.60-1.30) Estimat Glomerular Filtration 49 ML/MIN (>89) Rate Random Glucose 167 MG/DL (74-106) Calcium Level 8.3 MG/DL (8.5-10.1) Magnesium Level 2.1 MG/DL (1.5-2.5) (Elana Vernon) Result Diagram: 09/27/16 0343 09/27/16 0343 Microbiology Microbiology Date/Time Procedure Status Source Growth 09/24/16 13:00 Stool Occult Blood (ANUJA) - Final Complete Stool Stool HEMOCCULT NEGATIVE 09/21/16urineEscherichia coli 09/21/16bloodstaph epidermidis Imaging Last [address] 09/26/16 0000 Signed Impressions: Service Date/Time: Monday, September 26, 2016 08:40 - CONCLUSION: 1. Cholecystostomy tube in good position. 2. Moderate right pleural effusion and mild left effusion with accompanying areas of atelectasis and/or consolidation. 3. Mild ascites around the liver and spleen. Duncan Latif MD Cholangiogram 09/25/16 0000 Signed Impressions: Service Date/Time: Sunday, September 25, 2016 13:58 - CONCLUSION: The original cholecystostomy tube is occluded. Evaluation of the tract was performed to try and identify any cause of the hemobilia. No vascular structure was traversed with placement of the cholecystostomy tube. A new drainage catheter was placed and is in good position. Morgan Salazar Jr., MD Central Venous Line 09/25/16 0000 Signed Impressions: Service Date/Time: Sunday, September 25, 2016 13:58 - CONCLUSION: Uncomplicated line placement as above. Morgan Salazar Jr., MD Procedures 09/21/16 cholecystostomy 09/21/16. Right IJ central line (Elana Vernon) Patient/Family Conference Present at Family Conference: Nina ( Mary AMarge Alxeandria) Family Conference Location: Bedside Issues Discussed: * Palliative care role, purpose, approach * Additional medical, psychosocial, and spiritual history * Patients general health, functional status, and cognitive changes in the months leading up to the current hospitalization * Patient/family understanding of the current medical problems * Patient/family understanding of prognosis * Patients goals of care as best understood from advance directives and/or conversations and/or values * Current medical treatment options and benefits/burdens of those options * * Questions answered to the best of my ability * Palliative care contact information provided (Elana Vernon) Assessment and Plan Disease Oriented Problem List: (1) UTI (urinary tract infection) (2) Pneumonia (3) Cholecystitis (4) Elevated troponin (5) Bilateral pleural effusion (6) FLOR (acute kidney injury) (7) Anemia Symptom Scale: (1) Pain (2) Dyspnea Pertinent Non-Medical Issues Psychosocial:, was living at home prior to hospital admission in July. Went to [facility] for Rehab. not able to care for him at home in his current deconditioned state. Spiritual: currently non affiliated - grew up holiness Legal: states HCS - will bring document along w Living Will on next visit. Ethical issues impacting care: non evident Important Contacts Mary Ibrahim ( Annette), - [phone] Prognosis Prognosis is guarded in light of his chronic CHF w an EF of 25-30%, w 2 recent hospital admissions, chronic A Fib, mild dementia with declining in cognitive function over the last 4-5 years. Wheelchair dependent with ability to walk up to 20 feet. [place] to be a high risk for surgery / lap mitchell. Code Status: No Code Plan Decision Maker: Mary Wood" [phone] Code Status: DNR Family Discussion: In addition to background and history, discussed current clinical state with mgmt of CHF, Afib and Hx of stroke and progressive dementia ; discussion of mgmt of gallstones and interventions. Currently has a gallbladder drain - not a good surgical candidate per Cardiology. doesn't feel able to care for him at home, will likely return to [facility]. Discussed Code Status - indicates that he is and would want to be a DNR - supported by Living will. She will bring documents on next visit. Hospice was not discussed at this time as outcome to current treatment is pending Symptoms: pain, dsypnea, edema Palliative care phone number provided - will follow during hospital stay. ( Elana Vernon) Thank you for the opportunity to participate in the care of Mr. Ibrahim. (Elana Vernon) Attestation To help prompt me to consider important information that might be impacting today's encounter and assessment, information from prior notes written by myself or my colleagues may have been "brought forward" into today's note. My signature on this note, however, is an attestation that I personally performed the exam, history, and/or decision-making noted today, and, unless otherwise indicated, the interactions with patient, family, and staff as well as the review of records all occurred today. I also attest that the listed assessment and stated plan reflect my best clinical judgment today based on the combination of historical information, prior notes, and today's exam/ interactions. When time spent is documented, it refers only to time spent today by the signer, or if indicated, combined time spent today by collaborating physician/nurse practitioner. (Elana Vernon) Collaborating MD Comments Chart reviewed. Cased discussed with palliative care BASS MECHANISM MAKER. Above BASS MECHANISM MAKER note reviewed and I concur. . (Nitin Johns MD) Elana Vernon Sep 27, 2016 11:26 Nitin Johns MD December 10, 2016 13:12
[2016-09-27] MEDS ORDERED: LOPERAMIDE HCL 2 MG CAP PO PRN (18:00)
[2016-09-27] MEDS: ATORVASTATIN 20 MG TAB PO SCH (20:30)
[2016-09-27] MEDS: DONEPEZIL HCL 5 MG TAB PO SCH (21:00)
[2016-09-28] VITALS (8 sets, daily range): BP systolic 124–147; BP diastolic 60–79; PULSE 54–87; RESP 18–22; TEMP 97–98.7; O2SAT 94–98
[2016-09-28] MEDS: POTASSIUM CHLORIDE INJ 10 MEQ in SODIUM CHLOR 0.9% 1000 ML INJ 1,000 ML IV SCH ×2 (01:00→05:25)
[2016-09-28] MEDS: AZTREONAM INJ 500 MG in SODIUM CHLORIDE 0.9% INJ 100 ML IV SCH ×2 (02:22→12:02)
[2016-09-28] MEDS: NITROGLYCERIN 2% OINT 1 GM PACKET TOPICAL SCH ×4 (02:22→19:53)
[2016-09-28] MEDS: CHLORHEXIDINE GLUCONATE 2 % 1 PACK (2 CLOTHS) TOP SCH (03:49)
[2016-09-28 04:01] LABS: MEAN CELL VOLUME 86.8 FL (80.0-100.0); MEAN CORPUSCULAR HEMOGLOBIN 28.3 PG (27.0-34.0); MEAN CORPUSCULAR HGB CONC 32.6 % (32.0-36.0); PLATELET COUNT 227 TH/MM3 (150-450); RED BLOOD COUNT 2.65 MIL/MM3 (4.50-5.90); RED CELL DISTRIBUTION WIDTH 14.4 % (11.6-17.2); REVIEW FLAG FINAL; WHITE BLOOD COUNT 6.6 TH/MM3 (4.0-11.0)
[2016-09-28 04:20] LABS: BICARBONATE 24.9 MEQ/L (21.0-32.0); POTASSIUM 3.4 MEQ/L (3.5-5.1)
[2016-09-28] MEDS: INSULIN ASPART SUPPLEMENTAL SCALE SQ SCH ×4 (05:26→19:54)
[2016-09-28] MEDS: DOCUSATE SODIUM 100 MG CAP PO SCH ×2 (09:00→19:53)
[2016-09-28] MEDS ORDERED: POTASSIUM CHLORIDE 10 MEQ CONTROLLED RELEASE TAB PO ONE (09:00)
[2016-09-28] MEDS: FLUTICASONE PROPIONATE 50 MCG/ACT 16 GM NASAL SPRAY EACH NARE SCH (09:32)
[2016-09-28] MEDS: PANTOPRAZOLE SOD 40 MG DELAYED RELEASE TAB PO SCH (09:32)
[2016-09-28] MEDS: CARVEDILOL 6.25 MG TAB PO SCH ×2 (09:32→19:53)
[2016-09-28] MEDS: ASPIRIN EC 325 MG TABEC PO SCH (09:32)
[2016-09-28] MEDS: CITALOPRAM HYDROBROMIDE 20 MG TAB PO SCH (09:33)
[2016-09-28] MEDS: MEMANTINE HCL 10 MG TAB PO SCH ×2 (09:33→19:53)
[2016-09-28] MEDS: SODIUM CHLORIDE 0.9% FLUSH 5 ML FLUSH IV FLUSH SCH ×2 (09:34→19:54)
[2016-09-28] MEDS: SODIUM CHLORIDE 0.9% FLUSH 5 ML FLUSH IVF SCH (09:34)
[2016-09-28] MEDS: HEPARIN SODIUM - SQ 10,000 UNITS/ML VIAL SQ SCH ×2 (09:35→19:54)
[2016-09-28] MEDS ORDERED: CHLOROTHIAZIDE SOD 500 MG VIAL IV ONE (11:00)
--- NOTE | 2016-09-28 11:04 | HHI.NPPN ---
Subjective General Problems: Anemia, Edema Renal Failure: Chronic, Acute, Stage III Interval History Renal function is better. He is edematous. Adan in place. states he is lethargic but he is awake, follows commands, and answers questions. (Renetta Engle) Review of Systems General Constitutional: Fatigue (Renetta Engle) Cardiovascular Cardiac: Edema (Renetta Engle) Musculoskeletal MS: Pain/Stiffness (Renetta Engle) Heme-Lymph Heme-Lymph: Bruising (Renetta Engle) Objective Data Data 09/27/16 09/28/16 19:00 07:00 Intake Total 480 ml 660 ml Output Total 1500 ml 330 ml Balance -1020 ml 330 ml Intake Oral 480 ml 240 ml IV Total 420 ml Output Urine Total 1350 ml 300 ml Stool Total 150 ml Drainage Total 30 ml # Bowel Movements 0 Vital Signs Date Time Temp Pulse Resp B/P Pulse Ox O2 Delivery O2 Flow Rate FiO2 09/28/16 08:30 96 21 09/28/16 08:00 97.0 87 21 94 09/28/16 08:00 Nasal Cannula 2.00 09/28/16 04:00 98.7 77 20 130/76 97 09/28/16 00:25 98.4 54 22 133/71 95 09/27/16 21:30 21 09/27/16 20:00 97.6 70 22 142/78 97 09/27/16 16:00 98.3 77 20 120/59 98 09/27/16 12:00 97.5 90 20 152/99 94 (Renetta Engle) -: 09/28/16 0346 09/28/16 0346 Imaging Last [address] 09/26/16 0000 Signed Impressions: Service Date/Time: Monday, September 26, 2016 08:40 - CONCLUSION: 1. Cholecystostomy tube in good position. 2. Moderate right pleural effusion and mild left effusion with accompanying areas of atelectasis and/or consolidation. 3. Mild ascites around the liver and spleen. Duncan Latif MD Tubes & Lines: Adan Tubes & Lines Comment percutaneous cholecystostomy tube (Renetta Engle) Physical Exam General Appearance: Well Developed, No Acute Distress, Comfortable (Renetta Engle. LINING INSERTER) Eyes Eye Exam: Pupils Equal, Sclera White, Extraocular Movement Intact (Renetta Engle. LINING INSERTER) Ears & Nose Ears & Nose Exam: Nasal Mucosa Talmo (Renetta Engle. LINING INSERTER) Throat Throat Exam: Oral Mucosa Talmo & Moist (Renetta Engle. LINING INSERTER) Neck Neck Exam: Neck Supple, Trachea Midline (Renetta Engle LINING INSERTER) Pulmonary Resp Exam: Breath Sounds Equal, Crackles, Decreased Bases, Diminished Breath Sounds, Poor Inspiratory Effort Resp Remarks clear in upper lung figueroa (Renetta Engle. LINING INSERTER) Cardiology CV Exam: Regular, Normal Sinus Rhythm, Arrhythmia (Renetta Engle. LINING INSERTER) Gastrointestinal/Abdomen GI Exam: Soft, Non-Tender GI Remarks perc mitchell drain (Renetta Engle. LINING INSERTER) Genitourinary Exam: Clear Urine (Renetta Engle LINING INSERTER) Musculoskeletal MS Exam: Joints Intact, Normal Tone, Atrophy (Renetta Engle. LINING INSERTER) Integumentary Skin Exam: Warm, Dry Skin Remarks ecchymosis right flank (Renetta Engle. LINING INSERTER) Extremeties Extremities Exam: Pedal Pulses Palpable, Moderate Edema, Pitting Edema ( Renetta Engle. LINING INSERTER) Neurologic Neuro Exam: Alert, Awake, Speech Clear, Moving All Extremities (Renetta Engle. LINING INSERTER) Psychiatric Psych Exam: Appropriate Responses (Renetta Engle) PUD Prophylasis PUD Prophylaxis: Protonix (Renetta Engle. LINING INSERTER) Assessment/Plan Discussed Condition With: Patient, Spouse Assessment Summary: FLOR/Acute Renal Failure, CKD Stage III Electrolyte Assessment: Hypokalemia Problem List: (1) FLOR (acute kidney injury) Plan: his renal function has improved good urine output he is edematous, will stop IVF replace K hypernatremic, give a dose of Diuril continue treatment for UTI, recommend to remove Adan catheter but significant scrotal edema is noted adequate oral intake Needs physical therapy. (2) Sepsis Plan: on aztreonam blood culture reviewed, may be contaminant recommend to remove central line and adan when able (3) Cholecystitis Plan: s/p percutaneous drain replacement (4) Anemia Plan: worsening anemia he is iron deficient on oral iron, avoid venofer in patients with sepsis transfuse if needed (5) UTI (urinary tract infection) Plan: antibiotics as above (Renetta Engle) Plan patient was seen and examined. Renal function has improved. Cautious diuresis with Diuril. (Matti Whitmore MD) Problem Qualifiers (1) Sepsis: Qualified Code: A41.9 - Sepsis, due to unspecified organism (2) UTI (urinary tract infection): Qualified Code: N39.0 - Urinary tract infection with hematuria, site unspecified Renetta Engle Sep 28, 2016 11:04 Matti Whitmore MD Sep 28, 2016 14:34
--- NOTE | 2016-09-28 12:57 | HHI.HCPN ---
Reason for visit a. To assist with evaluation and management of symptoms including: dyspnea, pain b. To assist medical decision maker(s) with: better understanding of current medical conditions; weighing benefits/burdens of medical treatment options; making medical treatment decisions. (Elana Vernon) Subjective/Interval History Mr Ibrahim is seen by himself. He is awake and alert w memory issues present. He remains in A Fib in a controlled rate - oral medications have been initiated. O2 saturations running between 88-92 on room air. He remains with significant edema evident in his upper and lower extremities as well as significant scrotal edema. The last abdominal CT scan showed mild ascites around liver and spleen. IV fluids are discontinued. Labs show anemia with Hgb of 7.5. Renal function is improving. He is being followed by nephrology. He remains biliary drain and he continues to receive antibiotics for UTI and pneumonia. Received documentation for healthcare surrogate as well as living well from his today. Briefly spoke to the about consideration for hospice if not now some point in the future in light of his advanced cardiac disease. He has had 2 hospitalizations in the last 4 months for decompensated heart failure with an ejection fraction of 25-30% . She indicated that she would want to talk with the family before pursuing that. She is hopeful that he will be able to regain some strength after rehabilitation at [facility] and that he would hopefully return home. (Elana Vernon) Advance Directives Living Will: Copy in medical record Health Care Surrogate: Copy in medical record (Elana Vernon) Advance Directive Specifics Health Care Surrogate(s): , Mary Ibrahim, (Elana Vernon) Objective Vital Signs Date Time Temp Pulse Resp B/P Pulse Ox O2 Delivery O2 Flow Rate FiO2 09/28/16 12:00 98.6 82 21 124/60 96 09/28/16 08:30 96 21 09/28/16 08:00 97.0 87 21 94 09/28/16 08:00 Nasal Cannula 2.00 09/28/16 04:00 98.7 77 20 130/76 97 09/28/16 00:25 98.4 54 22 133/71 95 09/27/16 21:30 21 09/27/16 20:00 97.6 70 22 142/78 97 09/27/16 16:00 98.3 77 20 120/59 98 Intake & Output 09/28/16 09/28/16 07:00 19:00 Intake Total 660 ml Output Total 330 ml Balance 330 ml Intake Oral 240 ml IV Total 420 ml Output Urine Total 300 ml Drainage Total 30 ml # Bowel Movements 0 Physical Exam CONSTITUTIONAL/GENERAL: This is an adequately nourished patient, in no apparent distress. Awake, alert conversant with mild memory loss TUBES/LINES/DRAINS: Biliary drain, Macias catheter, Rectal bag, RIJ central line SKIN: No jaundice, rashes, or lesions. Ecchymoses on upper extremities. No wounds seen anteriorly. Skin temperature appropriate. Not diaphoretic. HEAD: Atraumatic. Normocephalic. EYES: Pupils equal and round and reactive. Extraocular motions intact. No scleral icterus. No injection or drainage. ENT: Mildly hard of hearing. Nose without bleeding or purulent drainage. Throat without visible erythema, exudates, masses, or lesions. NECK: Trachea midline. Supple, nontender. No palpable thyroid enlargement or nodularity. CARDIOVASCULAR: IRRegular rate and rhythm without murmurs, No JVD. Peripheral pulses symmetric. Edema to BLE L>R RESPIRATORY/CHEST: Symmetric, unlabored respirations. Clear to auscultation. diminished Breath sounds posterior bases. no cough. GASTROINTESTINAL: Abdomen soft, non-tender, nondistended. No hepato-splenomegaly , or palpable masses. No guarding. Bowel sounds present. GENITOURINARY: Without palpable bladder distension. Macias catheter in place. MUSCULOSKELETAL: Extremities without clubbing, cyanosis, or edema. No joint tenderness or effusion noted. No calf tenderness. No mottling or clubbing. LYMPHATICS: No palpable cervical or supraclavicular adenopathy. NEUROLOGICAL: Awake and alert x 2, some short term loss. will find answer with cueing, Motor and sensory within normal limits but weak. Follows commands. Moves all extremities. PSYCHIATRIC: No obvious anxiety/depression. no apparent hallucinations or other psychotic thought process. (Elana Vernon) Diagnostic Tests Laboratory Laboratory Tests Test 09/26/16 09/26/16 09/27/16 09/28/16 05:00 13:50 03:43 03:46 White Blood Count 5.3 TH/MM3 8.1 TH/MM3 6.6 TH/MM3 (4.0-11.0) (4.0-11.0) (4.0-11.0) Red Blood Count 2.72 MIL/MM3 2.93 MIL/MM3 2.65 MIL/MM3 (4.50-5.90) (4.50-5.90) (4.50-5.90) Hemoglobin 7.9 GM/DL 8.5 GM/DL 7.5 GM/DL (13.0-17.0) (13.0-17.0) (13.0-17.0) Hematocrit 23.8 % 25.8 % 23.0 % (39.0-51.0) (39.0-51.0) (39.0-51.0) Mean Corpuscular Volume 87.3 FL 88.0 FL 86.8 FL (80.0-100.0) (80.0-100.0) (80.0-100.0) Mean Corpuscular Hemoglobin 29.0 PG 29.1 PG 28.3 PG (27.0-34.0) (27.0-34.0) (27.0-34.0) Mean Corpuscular Hemoglobin 33.2 % 33.0 % 32.6 % Concent (32.0-36.0) (32.0-36.0) (32.0-36.0) Red Cell Distribution Width 14.4 % 14.5 % 14.4 % (11.6-17.2) (11.6-17.2) (11.6-17.2) Platelet Count 212 TH/MM3 217 TH/MM3 227 TH/MM3 (150-450) (150-450) (150-450) Mean Platelet Volume 6.8 FL 6.9 FL 6.8 FL (7.0-11.0) (7.0-11.0) (7.0-11.0) Neutrophils (%) (Auto) 71.9 % (16.0-70.0) Lymphocytes (%) (Auto) 13.2 % (9.0-44.0) Monocytes (%) (Auto) 9.8 % (0.0-8.0) Eosinophils (%) (Auto) 4.3 % (0.0-4.0) Basophils (%) (Auto) 0.8 % (0.0-2.0) Neutrophils # (Auto) 3.8 TH/MM3 (1.8-7.7) Lymphocytes # (Auto) 0.7 TH/MM3 (1.0-4.8) Monocytes # (Auto) 0.5 TH/MM3 (0-0.9) Eosinophils # (Auto) 0.2 TH/MM3 (0-0.4) Basophils # (Auto) 0.0 TH/MM3 (0-0.2) CBC Comment DIFF FINAL Differential Comment Sodium Level 145 MEQ/L 144 MEQ/L 146 MEQ/L (136-145) (136-145) (136-145) Potassium Level 3.7 MEQ/L 3.7 MEQ/L 3.4 MEQ/L (3.5-5.1) (3.5-5.1) (3.5-5.1) Chloride Level 113 MEQ/L 112 MEQ/L 113 MEQ/L (98-107) (98-107) (98-107) Carbon Dioxide Level 26.2 MEQ/L 23.3 MEQ/L 24.9 MEQ/L (21.0-32.0) (21.0-32.0) (21.0-32.0) Anion Gap 6 MEQ/L (5-15) 9 MEQ/L (5-15) 8 MEQ/L (5-15) Blood Urea Nitrogen 34 MG/DL (7-18) 31 MG/DL (7-18) 26 MG/DL (7-18) Creatinine 1.48 MG/DL 1.38 MG/DL 1.22 MG/DL (0.60-1.30) (0.60-1.30) (0.60-1.30) Estimat Glomerular Filtration 45 ML/MIN (>89) 49 ML/MIN (>89) 56 ML/MIN (>89) Rate Random Glucose 194 MG/DL 167 MG/DL 139 MG/DL (74-106) (74-106) (74-106) Calcium Level 7.8 MG/DL 8.3 MG/DL 8.1 MG/DL (8.5-10.1) (8.5-10.1) (8.5-10.1) Phosphorus Level 2.2 MG/DL 2.5 MG/DL (2.5-4.9) (2.5-4.9) Albumin 2.0 GM/DL 2.0 GM/DL (3.4-5.0) (3.4-5.0) Magnesium Level 2.1 MG/DL (1.5-2.5) (Elana Vernon) Result Diagram: 09/28/16 0346 09/28/16 0346 Microbiology 09/21/2016 UrineEscherichia coli 09/21/2016. Bloodstaph epi Imaging Last [address] 09/26/16 0000 Signed Impressions: Service Date/Time: Saturday, September 26, 2016 08:40 - CONCLUSION: 1. Cholecystostomy tube in good position. 2. Moderate right pleural effusion and mild left effusion with accompanying areas of atelectasis and/or consolidation. 3. Mild ascites around the liver and spleen. Duncan Latif MD Procedures 09/21/16 cholecystostomy 09/21/16. Right IJ central line (Elana Vernon) Assessment and Plan Disease Oriented Problem List: (1) UTI (urinary tract infection) (2) Pneumonia (3) Cholecystitis (4) Elevated troponin (5) Bilateral pleural effusion (6) FLOR (acute kidney injury) Comment: Improving (7) Anemia Comment: Hemoglobin 7.5 today. Will need transfusion Symptom Scale: (1) Pain (2) Dyspnea Pertinent Non-Medical Issues Psychosocial:, was living at home prior to hospital admission in July. Went to [facility] for Rehab. not able to care for him at home in his current deconditioned state. Spiritual: currently non affiliated - grew up confucianist Legal: states HCS - will bring document along w Living Will on next visit. Ethical issues impacting care: non evident Important Contacts [facility] " Nina" [place], - [phone] Prognosis Prognosis is guarded in light of his chronic CHF w an EF of 25-30%, w 2 recent hospital admissions, chronic A Fib, mild dementia with declining in cognitive function over the last 4-5 years. Wheelchair dependent with ability to walk up to 20 feet. [place] to be a high risk for surgery / lap mitchell. Code Status: No Code Plan Decision Maker: Mary Wood" [phone] Code Status: DNR Family Discussion: In addition to background and history, discussed current clinical state with mgmt of CHF, Afib and Hx of stroke and progressive dementia ; discussion of mgmt of gallstones and interventions. Currently has a gallbladder drain - not a good surgical candidate per Cardiology. doesn't feel able to care for him at home, will likely return to [facility] and living well and now on the chart Symptoms: pain, dsypnea, edema Palliative care phone number provided - will follow during hospital stay. ( Elana Vernon) Attestation To help prompt me to consider important information that might be impacting today's encounter and assessment, information from prior notes written by myself or my colleagues may have been "brought forward" into today's note. My signature on this note, however, is an attestation that I personally performed the exam, history, and/or decision-making noted today, and, unless otherwise indicated, the interactions with patient, family, and staff as well as the review of records all occurred today. I also attest that the listed assessment and stated plan reflect my best clinical judgment today based on the combination of historical information, prior notes, and today's exam/ interactions. When time spent is documented, it refers only to time spent today by the signer, or if indicated, combined time spent today by collaborating physician/nurse practitioner. (Elana Vernon) Collaborating MD Comments Chart reviewed. Cased discussed with palliative care CELL STRIPPER. Above CELL STRIPPER note reviewed and I concur. . (Nitin Johns MD) Elaan Vernon Sep 28, 2016 12:56 Nitin Johns MD December 10, 2016 13:28
--- NOTE | 2016-09-28 14:39 | HHI.PR ---
Subjective Subjective Remarks alert pleasant confusion, no family present pale, less SOB today (Rocío Silverman) Review of Systems Constitutional Constitutional Remarks Limited ROS secondary to patient's altered mental status (Rocío Silverman) Vitals/Results Intake & Output 09/27/16 09/27/16 09/28/16 15:00 23:00 07:00 Intake Total 480 ml 240 ml 420 ml Output Total 1500 ml 300 ml 30 ml Balance -1020 ml -60 ml 390 ml Intake Oral 480 ml 240 ml IV Total 420 ml Output Urine Total 1350 ml 300 ml Stool Total 150 ml Drainage Total 30 ml # Bowel Movements 0 Vital Signs Vital Signs Date Time Temp Pulse Resp B/P Pulse Ox O2 Delivery O2 Flow Rate FiO2 09/28/16 12:00 98.6 82 21 124/60 96 09/28/16 08:30 96 21 09/28/16 08:00 97.0 87 21 94 09/28/16 08:00 Nasal Cannula 2.00 09/28/16 04:00 98.7 77 20 130/76 97 09/28/16 00:25 98.4 54 22 133/71 95 09/27/16 21:30 21 09/27/16 20:00 97.6 70 22 142/78 97 09/27/16 16:00 98.3 77 20 120/59 98 (Rocío Silverman) CBC/BMP: 09/28/16 0346 09/28/16 0346 Lab Results Laboratory Tests Test 09/28/16 03:46 White Blood Count 6.6 TH/MM3 Red Blood Count 2.65 MIL/MM3 Hemoglobin 7.5 GM/DL Hematocrit 23.0 % Mean Corpuscular Volume 86.8 FL Mean Corpuscular Hemoglobin 28.3 PG Mean Corpuscular Hemoglobin 32.6 % Concent Red Cell Distribution Width 14.4 % Platelet Count 227 TH/MM3 Mean Platelet Volume 6.8 FL Sodium Level 146 MEQ/L Potassium Level 3.4 MEQ/L Chloride Level 113 MEQ/L Carbon Dioxide Level 24.9 MEQ/L Anion Gap 8 MEQ/L Blood Urea Nitrogen 26 MG/DL Creatinine 1.22 MG/DL Estimat Glomerular Filtration 56 ML/MIN Rate Random Glucose 139 MG/DL Calcium Level 8.1 MG/DL Phosphorus Level 2.5 MG/DL Albumin 2.0 GM/DL Current Medications Active Medications Chlorothiazide Sodium (Diuril Inj) 250 mg ONCE ONCE IV Last administered on 12:25; Admin Dose 250 MG; Start 09/28/16 at 11:00; Stop 09/28/16 at 11: 12; Status DC Loperamide HCl (Imodium) 2 mg Q6H PRN PO Last administered on 09/28/16 09:35; Admin Dose 2 MG; Start 09/27/16 at 18:00 Potassium Chloride (KCl) 30 meq ONCE ONCE PO Last administered on 09/28/16 09: 41; Admin Dose 30 MEQ; Start 09/28/16 at 09:00; Stop 09/28/16 at 09:07; Status DC (Rocío Silverman) Physical Exam General General Appearance: Well Developed, No Acute Distress, Comfortable (Rocío SilvermanP) Eyes Eye Exam: Pupils Equal, Sclera White, Extraocular Movement Intact (Rocío SilvermanP) Ears & Nose Ears & Nose Exam: Nasal Mucosa [place] (Rocío Silverman [employer]) Throat Throat Exam: Oral Mucosa [place] & Moist (Rocío SilvermanP) Neck Neck Exam: Neck Supple, Trachea Midline (Rocío SilvermanP) Pulmonary Resp Exam: Breath Sounds Equal, Crackles, Decreased Bases, Diminished Breath Sounds, Poor Inspiratory Effort (Rocío SilvermanP) Cardiology CV Exam: Regular, Normal Sinus Rhythm, Arrhythmia (Rocío SilvermanP) Gastrointestinal/Abdomen GI Exam: Soft, Non-Tender GI Remarks Drainage tube right side chol. (Rocío Silverman [employer]) Genitourinary Exam: Clear Urine Remarks Adan catheter (Rocío SilvermanP) Musculoskeletal MS Exam: Joints Intact, Normal Tone, Atrophy MS Remarks Debility (Rocío SilvermanP) Integumentary Skin Exam: Warm, Dry (Rocío SilvermanP) Extremeties Extremities Exam: Pedal Pulses Palpable, Moderate Edema, Pitting Edema (Rocío Silverman [employer]) Neurologic Neuro Exam: Alert, Awake, Speech Clear, Moving All Extremities (Rocío Silverman) Psychiatric Psych Exam: Appropriate Responses (Rocío Silverman) PUD Prophylasis PUD Prophylaxis: Protonix (Rocío Silverman) Assessment/Plan Assessment/Plan 1. Possible sepsis. 2. UTI/Pneumonia. 3. Acute Cholecystitis.s/p Percutaneous Cholecystostomy s/p cholecystostomy exchange 3.14.17 4. Acute kidney injury. 5. Hypokalemia. 6. Anemia acute on chronic , blood loss anemia 7. s/p NSTEMI 8. Hx CM 9. Dementia 10.advance age/frail health PLAN O2 Blood c/s neg urine c/s positive for Escherichia coli, UTI IV azactam/cipro IV continues cautious hydration, gentle, labs reviewed, patient continues with dehydration mild B UN 26, creatinine normal Mild shortness of breath, O2 on when necessary currently 96% on room air Right pleural effusion continues, lasix 20mg, IV X 1 on 09/27, active diuresis over the last 24 hours Patient's shortness of breath is better, patient states he feels better, continue to monitor Anemia secondary to acute event and chronic disease, hemoglobin decreased to 7.5 today, but patient states he actually feels better. Will recheck labs in the morning pleasant confusion continues, better when family in rm. Continue Aricept and Namenda 6 beat Runs of WCT, d/c Lopressor , inc Coreg dose 3-17, no further dysrhythmias noted PT therapy for eval and treat, debility and weakness and continues palliative care consult pending, patient and family need meeting for goals of care Code status is now DO NOT RESUSCITATE. states that this is what patient had in his living will, it is his wishes and her wishes. Otherwise patient is continuing his active care. Discussed with nurse D/W patient D/W Dr. Borrego, patient seen on his behalf (Rocío Silverman) Assessment/Plan pt is seen & examined d/w PT still some bleeding from cholecystostomy drain , pain in control No feer or chills appetite is ok adan catheter was removed , watch for voiding palliative care team's input appreciated i called & spoke pt's over the phone . d/w findingd in detail answered all of her question. she verbalized understanding I rec hospice d/t pt 's poor over all health. multiple co morbid conditions cardiomyopathy & advance age . she wants to talk it over w her children cont supportive care 'overall prognosis is poor d/w RN d/w Rocío manzano f/u (Ashly Borrego MD) Rocío Silverman Sep 28, 2016 14:39 Ashly Borrego MD Sep 28, 2016 19:16
[2016-09-28] MEDS: ATORVASTATIN 20 MG TAB PO SCH (19:53)
[2016-09-28] MEDS: DONEPEZIL HCL 5 MG TAB PO SCH (19:53)
[2016-09-28] MEDS: AZTREONAM 1,000 MG/NS 100 ML IV SCH ×2 (20:26)
[2016-09-28] MEDS: ACETAMINOPHEN/HYDROcodone 325 MG/5 MG TAB PO PRN (21:23)
[2016-09-29] VITALS (10 sets, daily range): BP systolic 124–162; BP diastolic 57–80; PULSE 61–93; RESP 18–20; TEMP 97.4–98.7; O2SAT 95–100
[2016-09-29] MEDS: NITROGLYCERIN 2% OINT 1 GM PACKET TOPICAL SCH ×2 (01:00→09:26)
[2016-09-29] MEDS: AZTREONAM 1,000 MG/NS 100 ML IV SCH ×6 (03:44→19:56)
[2016-09-29] MEDS: CHLORHEXIDINE GLUCONATE 2 % 1 PACK (2 CLOTHS) TOP SCH (04:00)
[2016-09-29] MEDS: INSULIN ASPART SUPPLEMENTAL SCALE SQ SCH ×4 (05:35→19:57)
[2016-09-29 06:32] LABS: BICARBONATE 24.8 MEQ/L (21.0-32.0); POTASSIUM 3.6 MEQ/L (3.5-5.1)
[2016-09-29] MEDS: DOCUSATE SODIUM 100 MG CAP PO SCH (09:00)
[2016-09-29] MEDS: PANTOPRAZOLE SOD 40 MG DELAYED RELEASE TAB PO SCH (09:26)
[2016-09-29] MEDS: MEMANTINE HCL 10 MG TAB PO SCH ×2 (09:26→19:55)
[2016-09-29] MEDS: HEPARIN SODIUM - SQ 10,000 UNITS/ML VIAL SQ SCH ×2 (09:26→19:56)
[2016-09-29] MEDS: ASPIRIN EC 325 MG TABEC PO SCH (09:26)
[2016-09-29] MEDS: CITALOPRAM HYDROBROMIDE 20 MG TAB PO SCH (09:26)
[2016-09-29] MEDS: FLUTICASONE PROPIONATE 50 MCG/ACT 16 GM NASAL SPRAY EACH NARE SCH (09:27)
[2016-09-29] MEDS: CARVEDILOL 6.25 MG TAB PO SCH ×2 (09:27→19:55)
[2016-09-29] MEDS: SODIUM CHLORIDE 0.9% FLUSH 5 ML FLUSH IVF SCH (09:28)
[2016-09-29] MEDS: SODIUM CHLORIDE 0.9% FLUSH 5 ML FLUSH IV FLUSH SCH ×2 (09:28→19:56)
--- NOTE | 2016-09-29 09:29 | HHI.PR ---
Subjective Subjective Remarks no pain at this time eating okay no cp no sob no fever right arm swelling improved at bsd discussed hospice, wants to talk to family. Would like pt. to go to [facility], he's familiar with staff and likes facility. Agreeable with having hospice services there if they can be done. Review of Systems Constitutional Constitutional Remarks 12 point ROS limited Vitals/Results Intake & Output 09/28/16 09/28/16 09/29/16 15:00 23:00 07:00 Intake Total 340 ml Output Total 400 ml Balance -60 ml Intake Oral 340 ml Output Urine Total 400 ml # Voids 2 # Bowel Movements 2 Vital Signs Vital Signs Date Time Temp Pulse Resp B/P Pulse Ox O2 Delivery O2 Flow Rate FiO2 09/29/16 07:30 99 Nasal Cannula 3.00 09/29/16 04:00 98.7 79 18 162/75 100 09/29/16 00:00 97.6 78 18 138/60 100 09/28/16 21:45 Nasal Cannula 2.00 09/28/16 20:00 98.7 84 20 147/79 98 09/28/16 16:00 97.8 80 18 145/75 98 09/28/16 12:00 98.6 82 21 124/60 96 CBC/BMP: 09/28/16 0346 09/29/16 0600 Lab Results Laboratory Tests Test 09/29/16 06:00 Sodium Level 145 MEQ/L Potassium Level 3.6 MEQ/L Chloride Level 112 MEQ/L Carbon Dioxide Level 24.8 MEQ/L Anion Gap 8 MEQ/L Blood Urea Nitrogen 27 MG/DL Creatinine 1.39 MG/DL Estimat Glomerular Filtration 49 ML/MIN Rate Random Glucose 159 MG/DL Calcium Level 8.0 MG/DL Phosphorus Level 2.8 MG/DL Albumin 1.9 GM/DL Physical Exam General General Appearance: Well Developed, No Acute Distress, Comfortable Eyes Eye Exam: Pupils Equal, Sclera White, Extraocular Movement Intact Ears & Nose Ears & Nose Exam: Nasal Mucosa [place] Throat Throat Exam: Oral Mucosa [place] & Moist Neck Neck Exam: Neck Supple, Trachea Midline Pulmonary Resp Exam: Breath Sounds Equal, Decreased Bases, Diminished Breath Sounds, Poor Inspiratory Effort Cardiology CV Exam: Regular, Normal Sinus Rhythm, Arrhythmia Gastrointestinal/Abdomen GI Exam: Soft, Non-Tender, Bowel Sounds Present, Non-Distended GI Remarks Biliary drain Musculoskeletal MS Exam: Joints Intact, Normal Tone, Atrophy Integumentary Skin Exam: Warm, Dry Extremeties Extremities Exam: Pedal Pulses Palpable, Moderate Edema, Pitting Edema Neurologic Neuro Exam: Alert, Awake, Speech Clear, Moving All Extremities, No Focal Deficits Psychiatric Psych Exam: Appropriate Responses VTE Prophylaxis VTE Prophylaxis Meds: Heparin PUD Prophylasis PUD Prophylaxis: Protonix Assessment/Plan Assessment/Plan 1. Sepsis 2. UTI/Pneumonia. 3. Acute Cholecystitis.s/p Percutaneous Cholecystostomy s/p cholecystostomy exchange 3.14.17 4. Acute kidney injury. 5. Hypokalemia. 6. Anemia acute on chronic , blood loss anemia 7. s/p NSTEMI 8. Hx CM 9. Dementia 10.advance age/frail health 11. Cardiomyopathy 12. Right pleural effusion 13. DM II PLAN continue abx BC staph epi, ? contaminant Urine + Ecoli renal function improving avoid nephrotoxic agents appreciate renal input continue with oxygen monitor sats Continue accuchecks with ISS Anemia stool OB negative low iron stores continue PO iron no HH today repeat HH in am Echo EF 25% appreciate card input no ectopy overnight continue Coreg change to baby ASA continue with biliary drain, monitor output, minimal appreciate surgical input Heparin/SCD DVT prophylaxis appreciate palliative care input DNR status plans to d/w her family, leaning to taking pt. back to SNF with hospice services continue with supportive care poor prognosis D/W RN D/W Dr. Borrego D/W pt, This patient was seen by myself and Dr. Borrego, this note is written on his behalf Shannan Austin Sep 29, 2016 09:29
[2016-09-29] MEDS: ACETAMINOPHEN/HYDROcodone 325 MG/5 MG TAB PO PRN ×3 (10:01→21:00)
--- NOTE | 2016-09-29 14:20 | HHI.NPPN ---
Subjective General Problems: Anemia, Edema Renal Failure: Chronic, Acute, Stage III Additional Remarks Patient is alert, no SOB, has mild abd. discomfort. Review of Systems General Constitutional: Fatigue Cardiovascular Cardiac: Edema Musculoskeletal MS: Pain/Stiffness Heme-Lymph Heme-Lymph: Bruising Objective Data Data 09/28/16 09/29/16 19:00 07:00 Intake Total 340 ml Output Total 400 ml Balance -400 ml 340 ml Intake Oral 340 ml Output Urine Total 400 ml # Voids 2 # Bowel Movements 2 Vital Signs Date Time Temp Pulse Resp B/P Pulse Ox O2 Delivery O2 Flow Rate FiO2 09/29/16 12:00 97.4 93 20 127/57 95 09/29/16 08:15 Nasal Cannula 2.00 09/29/16 08:00 98.1 78 20 153/80 99 09/29/16 07:30 99 Nasal Cannula 3.00 09/29/16 04:00 98.7 79 18 162/75 100 09/29/16 00:00 97.6 78 18 138/60 100 09/28/16 21:45 Nasal Cannula 2.00 09/28/16 20:00 98.7 84 20 147/79 98 09/28/16 16:00 97.8 80 18 145/75 98 -: 09/28/16 0346 09/29/16 0600 Tubes & Lines: Adan Tubes & Lines Comment percutaneous cholecystostomy tube Physical Exam General Appearance: Well Developed, No Acute Distress, Comfortable Eyes Eye Exam: Pupils Equal, Sclera White, Extraocular Movement Intact Ears & Nose Ears & Nose Exam: Nasal Mucosa [place] Throat Throat Exam: Oral Mucosa [place] & Moist Neck Neck Exam: Neck Supple, Trachea Midline Pulmonary Resp Exam: Breath Sounds Equal, Decreased Bases, Diminished Breath Sounds, Poor Inspiratory Effort Cardiology CV Exam: Regular, Normal Sinus Rhythm, Arrhythmia Gastrointestinal/Abdomen GI Exam: Soft, Non-Tender, Bowel Sounds Present, Non-Distended Musculoskeletal MS Exam: Joints Intact, Normal Tone, Atrophy Integumentary Skin Exam: Warm, Dry Extremeties Extremities Exam: Moderate Edema, Pitting Edema Neurologic Neuro Exam: Alert, Awake, Speech Clear, No Focal Deficits Psychiatric Psych Exam: Appropriate Responses PUD Prophylasis PUD Prophylaxis: Protonix Assessment/Plan Discussed Condition With: Patient, Spouse Assessment Summary: FLOR/Acute Renal Failure, CKD Stage III Electrolyte Assessment: Hypokalemia Problem List: (1) FLOR (acute kidney injury) Plan: his renal function has improved good urine output he is edematous, replace K, Na. is better. continue treatment for UTI, adequate oral intake Needs physical therapy. Creatinine is almost same, possibly at his baseline. (2) Sepsis Plan: on aztreonam blood culture reviewed, may be contaminant recommend to remove central line and adan when able (3) Cholecystitis Plan: s/p percutaneous drain replacement (4) Anemia Plan: worsening anemia he is iron deficient on oral iron, avoid venofer in patients with sepsis transfuse if needed (5) UTI (urinary tract infection) Plan: antibiotics as above Plan patient was seen and examined. Renal function has improved. Cautious diuresis with Diuril. Problem Qualifiers (1) Sepsis: Qualified Code: A41.9 - Sepsis, due to unspecified organism (2) UTI (urinary tract infection): Qualified Code: N39.0 - Urinary tract infection with hematuria, site unspecified Catrachita Boyer MD Sep 29, 2016 14:20
[2016-09-29] MEDS: DONEPEZIL HCL 5 MG TAB PO SCH (19:55)
[2016-09-29] MEDS: ATORVASTATIN 20 MG TAB PO SCH (19:55)
[2016-09-30] VITALS (8 sets, daily range): BP systolic 127–155; BP diastolic 63–87; PULSE 71–102; RESP 18–22; TEMP 97.8–99.3; O2SAT 94–100
[2016-09-30] MEDS: CHLORHEXIDINE GLUCONATE 2 % 1 PACK (2 CLOTHS) TOP SCH ×2 (03:20→23:20)
[2016-09-30] MEDS: AZTREONAM 1,000 MG/NS 100 ML IV SCH ×6 (03:32→20:13)
[2016-09-30] MEDS: ACETAMINOPHEN/HYDROcodone 325 MG/5 MG TAB PO PRN (03:49)
[2016-09-30 04:55] LABS: HEMATOCRIT 24.2 % (39.0-51.0); MEAN CELL VOLUME 87.7 FL (80.0-100.0); MEAN CORPUSCULAR HEMOGLOBIN 28.6 PG (27.0-34.0); MEAN CORPUSCULAR HGB CONC 32.7 % (32.0-36.0); PLATELET COUNT 277 TH/MM3 (150-450); RED BLOOD COUNT 2.76 MIL/MM3 (4.50-5.90); RED CELL DISTRIBUTION WIDTH 14.9 % (11.6-17.2); REVIEW FLAG FINAL; WHITE BLOOD COUNT 7.8 TH/MM3 (4.0-11.0)
[2016-09-30] MEDS: INSULIN ASPART SUPPLEMENTAL SCALE SQ SCH ×4 (06:13→20:32)
[2016-09-30] MEDS: FLUTICASONE PROPIONATE 50 MCG/ACT 16 GM NASAL SPRAY EACH NARE SCH (09:00)
--- NOTE | 2016-09-30 09:17 | HHI.PR ---
Subjective Subjective Remarks no pain at this time eating okay no cp no sob no fever has no complaint right bili drain with blood tinged drainage scrotal swelling no family at bsd Review of Systems Constitutional Constitutional Remarks 12 point ROS limited Vitals/Results Intake & Output 09/29/16 09/29/16 09/30/16 15:00 23:00 07:00 Intake Total 480 ml 468 ml 240 ml Output Total 260 ml Balance 480 ml 468 ml -20 ml Intake Oral 480 ml 240 ml 240 ml IV Total 228 ml Output Urine Total 250 ml Drainage Total 10 ml # Voids 3 4 # Bowel Movements 1 1 1 Vital Signs Vital Signs Date Time Temp Pulse Resp B/P Pulse Ox O2 Delivery O2 Flow Rate FiO2 09/30/16 04:05 97.8 75 20 155/87 95 09/30/16 00:04 98.1 72 22 140/63 100 09/29/16 21:33 100 Nasal Cannula 2.00 09/29/16 20:20 98.7 77 20 155/74 99 09/29/16 20:00 61 09/29/16 20:00 99 Nasal Cannula 2.00 09/29/16 16:12 18 09/29/16 16:00 98.2 61 20 124/60 100 09/29/16 12:00 97.4 93 20 127/57 95 CBC/BMP: 09/30/16 0430 09/29/16 0600 Lab Results Laboratory Tests Test 09/30/16 04:30 White Blood Count 7.8 TH/MM3 Red Blood Count 2.76 MIL/MM3 Hemoglobin 7.9 GM/DL Hematocrit 24.2 % Mean Corpuscular Volume 87.7 FL Mean Corpuscular Hemoglobin 28.6 PG Mean Corpuscular Hemoglobin 32.7 % Concent Red Cell Distribution Width 14.9 % Platelet Count 277 TH/MM3 Mean Platelet Volume 6.9 FL Physical Exam General General Appearance: Well Developed, No Acute Distress, Comfortable Eyes Eye Exam: Pupils Equal, Sclera White, Extraocular Movement Intact Ears & Nose Ears & Nose Exam: Nasal Mucosa [place] Throat Throat Exam: Oral Mucosa [place] & Moist Neck Neck Exam: Neck Supple, Trachea Midline Pulmonary Resp Exam: Breath Sounds Equal, Decreased Bases, Diminished Breath Sounds, Poor Inspiratory Effort Cardiology CV Exam: Regular, Normal Sinus Rhythm, Arrhythmia Gastrointestinal/Abdomen GI Exam: Soft, Non-Tender, Bowel Sounds Present, Non-Distended GI Remarks Biliary drain Musculoskeletal MS Exam: Joints Intact, Normal Tone, Atrophy Integumentary Skin Exam: Warm, Dry Extremeties Extremities Exam: Moderate Edema, Pitting Edema Neurologic Neuro Exam: Alert, Awake, Speech Clear, No Focal Deficits Psychiatric Psych Exam: Appropriate Responses VTE Prophylaxis VTE Prophylaxis Meds: Heparin PUD Prophylasis PUD Prophylaxis: Protonix Assessment/Plan Assessment/Plan 1. Sepsis 2. UTI/Pneumonia. 3. Acute Cholecystitis.s/p Percutaneous Cholecystostomy s/p cholecystostomy exchange 3.14.17 4. Acute kidney injury. 5. Hypokalemia. 6. Anemia acute on chronic , blood loss anemia 7. s/p NSTEMI 8. Hx CM 9. Dementia 10.advance age/[facility] 11. Cardiomyopathy 12. Right pleural effusion 13. DM II PLAN continue abx BC staph epi, ? contaminant Urine + Ecoli renal function improving avoid nephrotoxic agents appreciate renal input continue with oxygen monitor sats Continue accuchecks with ISS Anemia stool OB negative low iron stores continue PO iron Hgb 7.9 monitor Echo EF 25% appreciate card input no ectopy overnight continue Coreg baby ASA continue with biliary drain, monitor output, minimal appreciate surgical input Heparin/SCD DVT prophylaxis appreciate palliative care input DNR status plans to d/w her family, leaning to taking pt. back to SNF with hospice services continue with supportive care poor prognosis hospice note pending poss dc today to SNF with hospice D/W RN D/W Dr. Borrego D/W pt This patient was seen by myself and Dr. Borrego, this note is written on his behalf Shannan Austin Sep 30, 2016 09:17
[2016-09-30] MEDS: HEPARIN SODIUM - SQ 10,000 UNITS/ML VIAL SQ SCH ×2 (10:25→20:16)
[2016-09-30] MEDS: CITALOPRAM HYDROBROMIDE 20 MG TAB PO SCH (10:25)
[2016-09-30] MEDS: CARVEDILOL 6.25 MG TAB PO SCH ×2 (10:25→20:16)
[2016-09-30] MEDS: SODIUM CHLORIDE 0.9% FLUSH 5 ML FLUSH IV FLUSH SCH ×2 (10:25→20:25)
[2016-09-30] MEDS: MEMANTINE HCL 10 MG TAB PO SCH ×2 (10:25→20:16)
[2016-09-30] MEDS: PANTOPRAZOLE SOD 40 MG DELAYED RELEASE TAB PO SCH (10:25)
[2016-09-30] MEDS: ASPIRIN EC 81 MG TABEC PO SCH (10:25)
[2016-09-30] MEDS: SODIUM CHLORIDE 0.9% FLUSH 5 ML FLUSH IVF SCH (10:26)
[2016-09-30] MEDS ORDERED: IPRASOL INH (17:50)
[2016-09-30] MEDS ORDERED: HYDR-3516 PO (17:50)
[2016-09-30] MEDS ORDERED: CARV6.25 PO (17:50)
--- NOTE | 2016-09-30 18:42 | HHI.NPPN ---
Subjective General Problems: Anemia, Edema Renal Failure: Chronic, Acute, Stage III Additional Remarks Patient is alert, no SOB, doing better, no SOB. Review of Systems General Constitutional: Fatigue Cardiovascular Cardiac: Edema Musculoskeletal MS: Pain/Stiffness Heme-Lymph Heme-Lymph: Bruising Objective Data Data 09/29/16 09/30/16 19:00 07:00 Intake Total 480 ml 708 ml Output Total 260 ml Balance 480 ml 448 ml Intake Oral 480 ml 480 ml IV Total 228 ml Output Urine Total 250 ml Drainage Total 10 ml # Voids 3 4 # Bowel Movements 1 2 Vital Signs Date Time Temp Pulse Resp B/P Pulse Ox O2 Delivery O2 Flow Rate FiO2 09/30/16 17:23 97 Nasal Cannula 2.00 97 09/30/16 15:00 98.0 81 20 131/68 97 09/30/16 11:50 98.8 80 20 143/69 96 09/30/16 10:25 Nasal Cannula 2.00 09/30/16 09:27 96 Nasal Cannula 2.00 09/30/16 07:50 98.3 71 20 127/73 94 09/30/16 04:05 97.8 75 20 155/87 95 09/30/16 00:04 98.1 72 22 140/63 100 09/29/16 21:33 100 Nasal Cannula 2.00 09/29/16 20:20 98.7 77 20 155/74 99 09/29/16 20:00 61 09/29/16 20:00 99 Nasal Cannula 2.00 -: 09/30/16 0430 09/29/16 0600 Tubes & Lines: Adan Tubes & Lines Comment percutaneous cholecystostomy tube Physical Exam General Appearance: Well Developed, No Acute Distress, Comfortable Eyes Eye Exam: Pupils Equal, Sclera White, Extraocular Movement Intact Ears & Nose Ears & Nose Exam: Nasal Mucosa [place] Throat Throat Exam: Oral Mucosa [place] & Moist Neck Neck Exam: Neck Supple, Trachea Midline Pulmonary Resp Exam: Breath Sounds Equal, Decreased Bases, Diminished Breath Sounds, Poor Inspiratory Effort Cardiology CV Exam: Regular, Normal Sinus Rhythm, Arrhythmia Gastrointestinal/Abdomen GI Exam: Soft, Non-Tender, Bowel Sounds Present, Non-Distended Musculoskeletal MS Exam: Joints Intact, Normal Tone, Atrophy Integumentary Skin Exam: Warm, Dry Extremeties Extremities Exam: Moderate Edema, Pitting Edema Neurologic Neuro Exam: Alert, Awake, Speech Clear, No Focal Deficits Psychiatric Psych Exam: Appropriate Responses PUD Prophylasis PUD Prophylaxis: Protonix Assessment/Plan Discussed Condition With: Patient, Spouse Assessment Summary: FLOR/Acute Renal Failure, CKD Stage III Electrolyte Assessment: Hypokalemia Problem List: (1) FLOR (acute kidney injury) Plan: No new BMP today. Last Creatinine was 1.3 good urine output he is edematous, continue treatment for UTI, adequate oral intake Continue physical therapy. (2) Sepsis Plan: on aztreonam blood culture reviewed, may be contaminant recommend to remove central line and adan when able (3) Cholecystitis Plan: s/p percutaneous drain replacement (4) Anemia Plan: worsening anemia he is iron deficient on oral iron, avoid venofer in patients with sepsis transfuse if needed (5) UTI (urinary tract infection) Plan: antibiotics as above Problem Qualifiers (1) Sepsis: Qualified Code: A41.9 - Sepsis, due to unspecified organism (2) UTI (urinary tract infection): Qualified Code: N39.0 - Urinary tract infection with hematuria, site unspecified Catrachita Boyer MD Sep 30, 2016 18:42
[2016-09-30] MEDS: ATORVASTATIN 20 MG TAB PO SCH (20:16)
[2016-09-30] MEDS: DONEPEZIL HCL 5 MG TAB PO SCH (20:16)
[2016-10-01] VITALS: BP 121/72; PULSE 82; RESP 22; TEMP 99.4; O2SAT 94
[2016-10-01] MEDS: SODIUM CHLORIDE 0.9% FLUSH 5 ML FLUSH IV FLUSH PRN ×2 (03:49→05:32)
[2016-10-01] MEDS: AZTREONAM 1,000 MG/NS 100 ML IV SCH ×4 (03:49→11:59)
[2016-10-01 04:00] VITALS: BP 152/72; PULSE 83; RESP 22; TEMP 98.2; O2SAT 94
[2016-10-01] MEDS: INSULIN ASPART SUPPLEMENTAL SCALE SQ SCH ×2 (05:31→11:59)
[2016-10-01 08:55] VITALS: O2SAT 94
[2016-10-01] MEDS: CITALOPRAM HYDROBROMIDE 20 MG TAB PO SCH (09:59)
[2016-10-01] MEDS: FLUTICASONE PROPIONATE 50 MCG/ACT 16 GM NASAL SPRAY EACH NARE SCH (09:59)
[2016-10-01] MEDS: CARVEDILOL 6.25 MG TAB PO SCH (09:59)
[2016-10-01] MEDS: MEMANTINE HCL 10 MG TAB PO SCH (09:59)
[2016-10-01] MEDS: SODIUM CHLORIDE 0.9% FLUSH 5 ML FLUSH IV FLUSH SCH (09:59)
[2016-10-01] MEDS: SODIUM CHLORIDE 0.9% FLUSH 5 ML FLUSH IVF SCH (09:59)
[2016-10-01] MEDS: ASPIRIN EC 81 MG TABEC PO SCH (09:59)
[2016-10-01] MEDS: PANTOPRAZOLE SOD 40 MG DELAYED RELEASE TAB PO SCH (09:59)
[2016-10-01] MEDS: HEPARIN SODIUM - SQ 10,000 UNITS/ML VIAL SQ SCH (10:01)
--- NOTE | 2016-10-01 11:07 | HHI.PR ---
Subjective Subjective Remarks has no complaints no cp no sob eating okay no fever at bsd very little output from drain Review of Systems Constitutional Constitutional Remarks 12 point ROS limited Vitals/Results Intake & Output 09/30/16 09/30/16 10/01/16 15:00 23:00 07:00 Intake Total 1331 ml 355 ml 330 ml Output Total 200 ml 100 ml 200 ml Balance 1131 ml 255 ml 130 ml Intake Oral 1200 ml 240 ml 220 ml IV Total 131 ml 115 ml 110 ml Output Urine Total 200 ml 100 ml 200 ml # Bowel Movements 2 1 Vital Signs Vital Signs Date Time Temp Pulse Resp B/P Pulse Ox O2 Delivery O2 Flow Rate FiO2 10/01/16 10:43 Nasal Cannula 2.00 10/01/16 08:55 94 Nasal Cannula 2.00 10/01/16 04:00 98.2 83 22 152/72 94 10/01/16 00:00 99.4 82 22 121/72 94 09/30/16 20:35 Nasal Cannula 2.00 09/30/16 20:18 99.3 102 18 137/85 98 09/30/16 17:23 97 Nasal Cannula 2.00 97 09/30/16 15:00 98.0 81 20 131/68 97 09/30/16 11:50 98.8 80 20 143/69 96 CBC/BMP: 09/30/16 0430 09/29/16 0600 Microbiology Microbiology 10/01/16 Stool Occult Blood (ANUJA) - Final, Complete HEMOCCULT NEGATIVE Physical Exam General General Appearance: Well Developed, No Acute Distress, Comfortable Eyes Eye Exam: Pupils Equal, Sclera White, Extraocular Movement Intact Ears & Nose Ears & Nose Exam: Nasal Mucosa [place] Throat Throat Exam: Oral Mucosa [place] & Moist Neck Neck Exam: Neck Supple, Trachea Midline Pulmonary Resp Exam: Breath Sounds Equal, Decreased Bases, Diminished Breath Sounds, Poor Inspiratory Effort Cardiology CV Exam: Regular, Normal Sinus Rhythm, Arrhythmia Gastrointestinal/Abdomen GI Exam: Soft, Non-Tender, Bowel Sounds Present, Non-Distended GI Remarks Biliary drain Musculoskeletal MS Exam: Joints Intact, Normal Tone, Atrophy Integumentary Skin Exam: Warm, Dry Extremeties Extremities Exam: Moderate Edema, Pitting Edema Neurologic Neuro Exam: Alert, Awake, Speech Clear, No Focal Deficits Psychiatric Psych Exam: Appropriate Responses VTE Prophylaxis VTE Prophylaxis Meds: Heparin PUD Prophylasis PUD Prophylaxis: Protonix Assessment/Plan Assessment/Plan 1. Sepsis 2. UTI/Pneumonia. 3. Acute Cholecystitis.s/p Percutaneous Cholecystostomy s/p cholecystostomy exchange 3.14.17 4. Acute kidney injury. 5. Hypokalemia. 6. Anemia acute on chronic , blood loss anemia 7. s/p NSTEMI 8. Hx CM 9. Dementia 10.advance age/frail health 11. Cardiomyopathy 12. Right pleural effusion 13. DM II PLAN continue abx BC staph epi, ? contaminant Urine + Ecoli renal function improving avoid nephrotoxic agents appreciate renal input continue with oxygen monitor sats Continue accuchecks with ISS Anemia stool OB negative low iron stores continue PO iron Hgb 7.9 monitor Echo EF 25% appreciate card input no ectopy overnight continue Coreg baby ASA continue with biliary drain, monitor output, minimal appreciate surgical input Heparin/SCD DVT prophylaxis appreciate palliative care input DNR status will have IR RN check drain patency, very little output. If no output, can be dc. If inc. output, will leave in place. Per boatwright, pt. can go with drain d/w , she is agreeable with hospice at SNF facility. Plan to dc later today after drain is checked. D/W RN D/W Dr. Borrego D/W pt D/W Laura ZAVALETA boatwright D/W IR RN This patient was seen by myself and Dr. Borrego, this note is written on his behalf Discharge Minutes: 45 Shannan Austin Oct 01, 2016 11:07
[2016-10-01] MEDS ORDERED: CHLOROTHIAZIDE SOD 500 MG VIAL IV ONE (11:15)
--- NOTE | 2016-10-01 11:15 | HHI.NPPN ---
Subjective General Problems: Anemia, Edema Renal Failure: Chronic, Acute, Stage III Interval History He looks better. Renal function improved. No acute concerns. (Renetta Engle) Review of Systems General Constitutional: Fatigue (Renetta Engle) Cardiovascular Cardiac: Edema (Renetta Engle) Musculoskeletal MS: Pain/Stiffness (Renetta Engle) Heme-Lymph Heme-Lymph: Bruising (Renetta Engle) Objective Data Data 09/30/16 10/01/16 19:00 07:00 Intake Total 1331 ml 685 ml Output Total 200 ml 300 ml Balance 1131 ml 385 ml Intake Oral 1200 ml 460 ml IV Total 131 ml 225 ml Output Urine Total 200 ml 300 ml # Bowel Movements 2 1 Vital Signs Date Time Temp Pulse Resp B/P Pulse Ox O2 Delivery O2 Flow Rate FiO2 10/01/16 10:43 Nasal Cannula 2.00 10/01/16 08:55 94 Nasal Cannula 2.00 10/01/16 04:00 98.2 83 22 152/72 94 10/01/16 00:00 99.4 82 22 121/72 94 09/30/16 20:35 Nasal Cannula 2.00 09/30/16 20:18 99.3 102 18 137/85 98 09/30/16 17:23 97 Nasal Cannula 2.00 97 09/30/16 15:00 98.0 81 20 131/68 97 09/30/16 11:50 98.8 80 20 143/69 96 (Renetta Engle) -: 09/30/16 0430 09/29/16 0600 Microbiology 10/01/16 Stool Occult Blood (ANUJA) - Final, Complete HEMOCCULT NEGATIVE Tubes & Lines Comment percutaneous cholecystostomy tube (Renetta Engle) Physical Exam General Appearance: Well Developed, No Acute Distress, Comfortable (Renetta Engle) Eyes Eye Exam: Pupils Equal, Sclera White, Extraocular Movement Intact (Renetta Engle) Ears & Nose Ears & Nose Exam: Nasal Mucosa [place] (Renetta Engle) Throat Throat Exam: Oral Mucosa [place] & Moist (Renetta Engle) Neck Neck Exam: Neck Supple, Trachea Midline (Renetta Engle) Pulmonary Resp Exam: Breath Sounds Equal, Decreased Bases, Diminished Breath Sounds, Poor Inspiratory Effort Resp Remarks clear in upper lung [place] (Renetta Engle) Cardiology CV Exam: Regular, Normal Sinus Rhythm, Arrhythmia (Renetta Engle) Gastrointestinal/Abdomen GI Exam: Soft, Non-Tender, Bowel Sounds Present, Non-Distended GI Remarks perc mitchell drain (Renetta Engle) Musculoskeletal MS Exam: Joints Intact, Normal Tone, Atrophy (Renetta Engle) Integumentary Skin Exam: Warm, Dry Skin Remarks ecchymosis right flank (Renetta Engle) Extremeties Extremities Exam: Moderate Edema, Pitting Edema (Renetta Engle) Neurologic Neuro Exam: Alert, Awake, Oriented, Speech Clear, Moving All Extremities, No Focal Deficits (Renetta Engle) Psychiatric Psych Exam: Appropriate Responses (Renetta Engle) PUD Prophylasis PUD Prophylaxis: Protonix (Renetta Engle) Assessment/Plan Discussed Condition With: Patient Assessment Summary: FLOR/Acute Renal Failure, CKD Stage III Electrolyte Assessment: Hypokalemia Problem List: (1) FLOR (acute kidney injury) Plan: Renal function improved good urine output, adan was removed he is edematous, give a dose of Diuril today continue treatment for UTI adequate oral intake Continue physical therapy. (2) Sepsis Plan: on aztreonam blood culture reviewed, may be contaminant he is afebrile (3) Cholecystitis Plan: s/p percutaneous drain replacement (4) Anemia Plan: Hb low but stable, improved slightly he is iron deficient on oral iron, avoid venofer in patients with sepsis transfuse if needed (5) UTI (urinary tract infection) Plan: antibiotics as above Plan we will sign off at this time, he is stable from renal perspective (Renetta Engle) Plan patient was seen and examined. Renal function has improved. Another dose of Diuril. We will see as needed. Thanks. (Matti Whitmore MD) Problem Qualifiers (1) Sepsis: Qualified Code: A41.9 - Sepsis, due to unspecified organism (2) UTI (urinary tract infection): Qualified Code: N39.0 - Urinary tract infection with hematuria, site unspecified Renetta Engle Oct 01, 2016 11:15 Matti Whitmore MD Oct 02, 2016 11:33
--- NOTE | 2016-10-01 11:37 | HHI.DCPOC ---
Discharge Care Plan Diagnosis: (1) Sepsis (2) Cholecystitis (3) UTI (urinary tract infection) (4) Elevated troponin (5) Bilateral pleural effusion (6) FLOR (acute kidney injury) (7) Anemia (8) Dyspnea (9) Pneumonia (10) Pain Your Health Problems Are: Appetite Changes Goals to Promote Your Health * To prevent worsening of your condition and complications * To maintain your health at the optimal level Directions to Meet Your Goals Take your medications as prescribed Follow your dietary instruction Follow activity as directed Keep your appointments as scheduled Take your immunizations and boosters as scheduled If your symptoms worsen call your PCP, if no PCP go to Urgent Care Center or Emergency Room Smoking is Dangerous to Your Health. Avoid second hand smoke Call the 24-hour hour crisis hotline for domestic abuse at Shannan Austin [facility] Oct 01, 2016 11:37
--- NOTE | 2016-10-01 11:48 | HHI.DS ---
Discharge Summary Admission Date Sep 21, 2016 at 04:13 Discharge Date: Oct 01, 2016 Admitting Diagnosis sepsis, pneumonia, UTI, cholecystitis, elevated troponin (1) Cholecystitis (2) Sepsis (3) UTI (urinary tract infection) (4) Elevated troponin (5) Bilateral pleural effusion (6) FLOR (acute kidney injury) (7) Anemia (8) Dyspnea (9) Pneumonia (10) Pain (11) NSTEMI (non-ST elevated myocardial infarction) Procedures s/p Percutaneous Cholecystostomy 09/21/2016 s/p cholecystostomy exchange 09.25.16 CBC/BMP: 09/30/16 0430 09/29/16 0600 Significant Findings Laboratory Tests Test 09/29/16 09/30/16 06:00 04:30 Chloride Level 112 MEQ/L (98-107) Blood Urea Nitrogen 27 MG/DL (7-18) Creatinine 1.39 MG/DL (0.60-1.30) Estimat Glomerular Filtration 49 ML/MIN (>89) Rate Random Glucose 159 MG/DL (74-106) Calcium Level 8.0 MG/DL (8.5-10.1) Albumin 1.9 GM/DL (3.4-5.0) Red Blood Count 2.76 MIL/MM3 (4.50-5.90) Hemoglobin 7.9 GM/DL (13.0-17.0) Hematocrit 24.2 % (39.0-51.0) Mean Platelet Volume 6.9 FL (7.0-11.0) Imaging Last Impressions Abdomen CT 09/26/16 0000 Signed Impressions: Service Date/Time: Monday, September 26, 2016 08:40 - CONCLUSION: 1. Cholecystostomy tube in good position. 2. Moderate right pleural effusion and mild left effusion with accompanying areas of atelectasis and/or consolidation. 3. Mild ascites around the liver and spleen. Duncan Latif MD Cholangiogram 09/25/16 0000 Signed Impressions: Service Date/Time: Sunday, September 25, 2016 13:58 - CONCLUSION: The original cholecystostomy tube is occluded. Evaluation of the tract was performed to try and identify any cause of the hemobilia. No vascular structure was traversed with placement of the cholecystostomy tube. A new drainage catheter was placed and is in good position. Morgan Salazar Jr., MD Central Venous Line 09/25/16 0000 Signed Impressions: Service Date/Time: Sunday, September 25, 2016 13:58 - CONCLUSION: Uncomplicated line placement as above. Morgan Salazar Jr., MD Renal Ultrasound 09/24/16 0000 Signed Impressions: Service Date/Time: Saturday, September 24, 2016 10:09 - CONCLUSION: 1. Nonobstructing right renal stones. 2. Right pleural effusion. 3. Mild ascites around the spleen. Duncan Latif MD Chest X-Ray 09/23/16 0600 Signed Impressions: Service Date/Time: Friday, September 23, 2016 03:51 - CONCLUSION: Increasing infiltrates in the right lung and persistent left lower lung consolidation. Morgan Venegas MD Abdomen/Pelvis CT 09/21/16 0240 Signed Impressions: Service Date/Time: Wednesday, September 21, 2016 03:27 - CONCLUSION: 1. Abnormal appearance to the gallbladder with multiple small calcified stones, marked distention of the gallbladder, and induration of the fat about the gallbladder tracking along the mesentery in the right upper quadrant. Recommend correlation with clinical exam for possible acute cholecystitis.. 2. Large bilateral pleural effusions, right greater than left. Morgan Venegas MD Percutaneous Cholangiogram 09/21/16 0000 Signed Impressions: Service Date/Time: Wednesday, September 21, 2016 15:50 - CONCLUSION: Uncomplicated percutaneous cholecystostomy as above. Emery Truong MD Hospital Course This is an 86-year-old gentleman a resident of [facility] who presented to the ED on 09/21/16 with c/o severe right upper quadrant pain and back pain. Initial diagnostics identified elevated WBC's of 16.4; a BNP > 1000 as well as elevated serial troponins with concern for probable myocardial infarction, non-STEMI. Past history of CAD and chronic A Fib. He has known cardiomyopathy with a ejection fraction of 25-30% and recurrent CHF w EF of 25- 30%. Mircrobiology studies found he was + for UTI ( e coli) and Blood ( Staph Epi). CT scan was consistent with acute Cholecystitis. Patient was initially admitted to intensive care services, was managed in the ICU and put on empiric antibiotics. Cardiology was also consulted for evaluation for his non-STEMI. Multiple consultants followed the patient during hospitalization, palliative care services, infectious disease, cardiology, interventional radiology, surgical services. Surgical services evaluated patient, recommended nonoperative treatment. Interventional radiology was consulted and patient had a cholecystostomy tube placed. Tube reoccluded in patient require replacement of 2 per IR. Cardiology added beta blockers for treatment of non-STEM and recommended to continue medical management. Echo was done showing EF of 25% .Patient was eventually transferred out of the intensive care unit. Palliative care services was consulted to assist patient and family with the finding goals of care. DNR status was entered. Nephrology was consulted to manage acute renal injury, renal function improved with cautious hydration. Nephrotoxic agents were avoided.Patient was continued on supplemental oxygen, DuoNeb's as needed were ordered. Sats were monitor closely. Patient was noted anemic, he was noted with low iron stores was started on by mouth supplement. Hemoccult was negative. Biliary drain was continued, output was monitored. IR have recommended to keep drain for 5 more days after discharge.Palliative care continue discussions with patient and family. Hospice services were presented to and she was in agreement. balance assembler met with family and the indicated she wanted patient to go back to SNF facility with hospice services. Patient was discharged to SNF facility in fair condition with hospice services. Pt Condition on Discharge: Fair Discharge Disposition: Hospice/Med Facility Discharge Instructions DIET: Follow Instructions for: Heart Healthy Diet Activities you can perform: Weight Bearing as Chantelle Follow up Referrals: PCP Follow-up - 1 Week New Medications: Carvedilol (Coreg) 6.25 Mg Tab 12.5 MG PO BID CAD #60 TAB Hydrocodone-Acetaminophen (Hydrocodone-Acetaminophen) 5-325 mg Tab 1 TAB PO Q4H PRN PAIN SCALE 1 TO 5 #40 TAB Ipratropium-Albuterol Neb (Duoneb) 0.5-2.5 Mg/3 Ml Neb 1 AMPULE INH Q4HR NEB PRN WHEEZING Days 30 ML Continued Medications: Aspirin (Aspirin) 81 Mg Tabdr 81 MG PO DAILY TAB Atorvastatin (Atorvastatin) 20 Mg Tab 20 MG PO HS Cholesterol Management #30 Ref 0 TAB Citalopram (Citalopram) 20 Mg Tab 20 MG PO DAILY Control Depression #30 Ref 0 TAB Donepezil (Aricept) 10 Mg Tab 10 MG PO HS Dementia #30 Ref 0 TAB Furosemide (Lasix) 20 Mg Tab 20 MG PO DAILY #30 Ref 0 TAB Lisinopril-Hctz (Lisinopril-Hctz) 20-25 Mg Tab 1 TAB PO DAILY Blood Pressure Management #30 Ref 0 TAB Memantine (Namenda) 10 Mg Tab 10 MG PO BID Alzheimer Disease #30 Ref 0 TAB Mometasone Nasal [place] (Nasonex Nasal [place]) 50 Mcg/Act Naspr 2 SPRAY EACH NARE DAILY Allergy Management #1 Ref 0 BOTTLE Pantoprazole (Protonix) 40 Mg Tab 40 MG PO DAILY Reflux #30 Ref 0 TAB Discontinued Medications: Apixaban (Eliquis) 2.5 Mg Tab 2.5 MG PO DAILY Blood Clot Prevention Ref 0 TAB Carvedilol (Coreg) 6.25 Mg Tab 6.25 MG PO BID #60 Ref 0 TAB Clonidine (Clonidine) 0.2 Mg Tab 0.2 MG PO DAILY Blood Pressure Management #60 Ref 0 TAB Cyclobenzaprine (Flexeril) 10 Mg Tab 10 MG PO qhs Muscle Spasm #90 Ref 0 TAB Dietary Management Product (Axona) 1 Pow Pow 1 Metformin ER (Metformin ER) 500 Mg [place] 500 MG PO BIDPC With evening meal Blood Sugar Management Ref 0 TAB Nifedipine (Procardia) 10 Mg Cap 30 MG PO BID Chest Pain #90 Ref 0 CAP Potassium Citrate ER (Potassium Citrate ER) 1,080 Mg Tab 1080 PO BID Shannan Austin Oct 01, 2016 11:48 Continued Medications: Aspirin (Aspirin) 81 Mg Tabdr 81 MG PO DAILY TAB Atorvastatin (Atorvastatin) 20 Mg Tab 20 MG PO HS Cholesterol Management #30 Ref 0 TAB Citalopram (Citalopram) 20 Mg Tab 20 MG PO DAILY Control Depression #30 Ref 0 TAB Donepezil (Aricept) 10 Mg Tab 10 MG PO HS Dementia #30 Ref 0 TAB Furosemide (Lasix) 20 Mg Tab 20 MG PO DAILY #30 Ref 0 TAB Lisinopril-Hctz (Lisinopril-Hctz) 20-25 Mg Tab 1 TAB PO DAILY Blood Pressure Management #30 Ref 0 TAB Memantine (Namenda) 10 Mg Tab 10 MG PO BID Alzheimer Disease #30 Ref 0 TAB Mometasone Nasal [place] (Nasonex Nasal [place]) 50 Mcg/Act Naspr 2 SPRAY EACH NARE DAILY Allergy Management #1 Ref 0 BOTTLE Pantoprazole (Protonix) 40 Mg Tab 40 MG PO DAILY Reflux #30 Ref 0 TAB Discontinued Medications: Apixaban (Eliquis) 2.5 Mg Tab 2.5 MG PO DAILY Blood Clot Prevention Ref 0 TAB Carvedilol (Coreg) 6.25 Mg Tab 6.25 MG PO BID #60 Ref 0 TAB Clonidine (Clonidine) 0.2 Mg Tab 0.2 MG PO DAILY Blood Pressure Management #60 Ref 0 TAB Cyclobenzaprine (Flexeril) 10 Mg Tab 10 MG PO qhs Muscle Spasm #90 Ref 0 TAB Dietary Management Product (Axona) 1 Pow Pow 1 Metformin ER (Metformin ER) 500 Mg [place] 500 MG PO BIDPC With evening meal Blood Sugar Management Ref 0 TAB Nifedipine (Procardia) 10 Mg Cap 30 MG PO BID Chest Pain #90 Ref 0 CAP Potassium Citrate ER (Potassium Citrate ER) 1,080 Mg Tab 1080 PO BID Shannan Austin [facility] Oct 01, 2016 11:48
[2016-10-01 12:47] LABS: BICARBONATE 27.3 MEQ/L (21.0-32.0); POTASSIUM 3.8 MEQ/L (3.5-5.1)
[2016-10-01] MEDS: ACETAMINOPHEN/HYDROcodone 325 MG/5 MG TAB PO PRN (14:33)
== END 2016-10-01 15:05 | DRG 871 ==
LOC: NEPE 02:20 → NEDA 04:13 → N03A 07:57 → HCPC 09-25 12:33 → HOCA 09-30 07:20
PROVIDERS: ADMIT Surgery Surgical Critical Care; ATTEND Specialist
PROC: 0F9430Z Drainage of Gallbladder with Drainage Device, Percutaneous Approach (ICD-10-PCS; principal; 2016-09-21)
PROC: 0F24X0Z Change Drainage Device in Gallbladder, External Approach (ICD-10-PCS; 2016-09-25)
PROC: 05HM33Z Insertion of Infusion Device into Right Internal Jugular Vein, Percutaneous Approach (ICD-10-PCS; 2016-09-25)
DX: A41.9 Sepsis, unspecified organism (principal); I21.4 Non-ST elevation (NSTEMI) myocardial infarction; N17.9 Acute kidney failure, unspecified; J18.9 Pneumonia, unspecified organism; E87.0 Hyperosmolality and hypernatremia; J90 Pleural effusion, not elsewhere classified; I42.0 Dilated cardiomyopathy; N39.0 Urinary tract infection, site not specified; K80.00 Calculus of gallbladder with acute cholecystitis without obstruction; F03.90 Unspecified dementia, unspecified severity, without behavioral disturbance, psychotic disturbance, mood disturbance, and anxiety; I69.354 Hemiplegia and hemiparesis following cerebral infarction affecting left non-dominant side; I50.9 Heart failure, unspecified; R06.89 Other abnormalities of breathing; B96.20 Unspecified Escherichia coli [E. coli] as the cause of diseases classified elsewhere; I25.10 Atherosclerotic heart disease of native coronary artery without angina pectoris; I48.2 Chronic atrial fibrillation; E78.5 Hyperlipidemia, unspecified; E87.6 Hypokalemia; I27.2 Other secondary pulmonary hypertension; Z51.5 Encounter for palliative care; M19.90 Unspecified osteoarthritis, unspecified site; N18.3 Chronic kidney disease, stage 3 (moderate); I12.9 Hypertensive chronic kidney disease with stage 1 through stage 4 chronic kidney disease, or unspecified chronic kidney disease; D50.9 Iron deficiency anemia, unspecified; E86.0 Dehydration; F32.9 Major depressive disorder, single episode, unspecified; Z66 Do not resuscitate; E11.22 Type 2 diabetes mellitus with diabetic chronic kidney disease; M54.16 Radiculopathy, lumbar region; N50.89 Other specified disorders of the male genital organs; R60.0 Localized edema; I69.398 Other sequelae of cerebral infarction; Z85.46 Personal history of malignant neoplasm of prostate; Z79.84 Long term (current) use of oral hypoglycemic drugs; Z88.8 Allergy status to other drugs, medicaments and biological substances; Z88.1 Allergy status to other antibiotic agents
CPT/HCPCS: 36556; 47490; 47536; 71010; 74150; 74177; 76775; 76937; 76942; 77001; 80048; 80053; 80069; 80185; 81001; 82272; 82550; 82552; 82728; 82948; 83540; 83550; 83605; 83690; 83735; 83880; 84100; 84132; 84443; 84484; 85007; 85014; 85018; 85025; 85027; 85044; 85610; 85730; 86403; 86850; 86900; 86901; 87040; 87077; 87086; 87186; 87205; 87493; 87641; 87804; 93005; 93306; 94640; 94664; 96374; 99152; 99153; C1729; C1769; C1894; C9113; J0744; J1205; J1644; J1815; J1940; J1956; J2250; J3010; J3480; J7030; P9047; P9612; Q9967